=== PATIENT | female | born 1990 | race Caucasian/White ===

== ENCOUNTER → 2017-08-11 09:40 | Outpatient (CLI) | payer BC, SELFPAY ==
--- NOTE | 2017-08-11 09:44 | FL_ITS ---
FL upper GI small bowel HISTORY: ITS.REASON: POST-PRANDIAL NAUSEA ORDERING PHYSICIAN: Fredy Mayen MD PATIENT AGE: 27 years Comparison: None FINDINGS: The esophagus, stomach, and duodenum have an unremarkable appearance. There is no evidence of hiatal hernia. No ulcer or mass evident. No mucosal abnormalities apparent. There is normal peristalsis. The duodenal C-loop is nondisplaced. The small bowel has an unremarkable appearance. No small bowel obstruction mass or mucosal abnormality evident. Spot views of the terminal ileum are unremarkable. FLUOROSCOPY TIME : 3 minutes 32 seconds. IMPRESSION: Negative upper GI and small bowel follow-through
[2017-08-11 11:04] LABS: Urine Pregnancy, HCG Qual. Negative (Negative)
== END ==
PROVIDERS: Family Provider Family Medicine; PCP Family Medicine; Visit Provider Surgery
DX: R11.0 Nausea (principal)
CPT/HCPCS: 74245; 81025

== ENCOUNTER → 2017-08-16 09:46 | Outpatient (CLI) | payer BC, SELFPAY ==
--- NOTE | 2017-08-16 09:47 | NM_ITS ---
NM gastric emptying study CLINICAL INDICATION: ITS.REASON: POST PRANDIAL NAUSEA ORDERING PHYSICIAN: Fredy Mayen MD PATIENT AGE: 27 years Comparison: None DOSE: 0.52 mCi technetium sulfur colloid in radio labeled meal FINDINGS: Time/activity curve is generated demonstrating a one half emptying time of 57 minutes which is within normal limits. Approximate 75% of the contents emptied within the 90 minute period. The images submitted show no evidence of GE reflux. IMPRESSION: Normal gastric emptying time
--- NOTE | 2017-08-16 09:54 | XR_ITS ---
XR KUB HISTORY: Evaluate for barium which would hinder adequate evaluation for gastric emptying scan if present ITS.REASON: check for barium ORDERING PHYSICIAN: Fredy Mayen MD PATIENT AGE: 27 years COMPARISON: FINDINGS: The bowel gas pattern is unremarkable. No obvious obstruction.. No abnormal calcifications are evident. No obvious renal or ureteral calculi.. No acute bony anomalies evident. No residual contrast within the intestines except for a small diverticulum in the splenic flexure region. IMPRESSION: Negative KUB, no significant residual barium within the intestines
== END ==
PROVIDERS: Family Provider Family Medicine; PCP Family Medicine; Visit Provider Surgery
DX: R10.9 Unspecified abdominal pain (principal)
CPT/HCPCS: 74018; 78264; A9541

== ENCOUNTER → 2017-10-31 12:26 | Outpatient (POV) | payer BC, SELFPAY | PROVIDERS: Visit Provider Nurse Practitioner Acute Care | DX: Z00.00 Encounter for general adult medical examination without abnormal findings (principal) ==

== ENCOUNTER → 2017-12-19 13:26 | Outpatient (POV) | payer BC, SELFPAY | PROVIDERS: Visit Provider Nurse Practitioner Acute Care | DX: Z00.00 Encounter for general adult medical examination without abnormal findings (principal) ==

== ENCOUNTER → 2018-02-20 11:12 | Outpatient (POV) | payer BC, SELFPAY | PROVIDERS: Visit Provider Nurse Practitioner Acute Care | DX: Z00.00 Encounter for general adult medical examination without abnormal findings (principal) ==

== ENCOUNTER 2018-05-26 18:55 | Emergency (ER) | payer BC, SELFPAY ==
[2018-05-26 19:10] VITALS: BP 121/71; PULSE 82; RESP 18; TEMP 36.6; O2SAT 99; BMI 49.1
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
[2018-05-26 19:32] VITALS: BP 121/71; PULSE 82; RESP 18; TEMP 36.6; O2SAT 99
== END 2018-05-26 19:46 | disposition home or self-care (01) ==
PROVIDERS: Emergency Provider Physician Assistant
DX: L50.0 Allergic urticaria (principal); H66.003 Acute suppurative otitis media without spontaneous rupture of ear drum, bilateral; Z51.81 Encounter for therapeutic drug level monitoring; K21.9 Gastro-esophageal reflux disease without esophagitis; I10 Essential (primary) hypertension
CPT/HCPCS: 96372; 99201; J1040

== ENCOUNTER → 2018-11-20 10:39 | Outpatient (CLI) | payer BC, SELFPAY ==
[2018-11-20 13:46] LABS: Thyroid Stimulating Hormone 2.66 uIU/ml (0.358-3.740)
== END ==
PROVIDERS: Visit Provider Obstetrics & Gynecology
DX: E66.9 Obesity, unspecified (principal)
CPT/HCPCS: 36415; 84443

== ENCOUNTER → 2018-12-11 10:02 | Outpatient (POV) | payer BC, SELFPAY | PROVIDERS: PCP Family Medicine; Visit Provider Nurse Practitioner Family | DX: Z00.00 Encounter for general adult medical examination without abnormal findings (principal) ==

== ENCOUNTER → 2019-03-19 09:18 | Outpatient (POV) | payer BC, SELFPAY | PROVIDERS: Visit Provider Nurse Practitioner Family | DX: Z00.00 Encounter for general adult medical examination without abnormal findings (principal) ==

== ENCOUNTER → 2019-03-20 12:43 | Outpatient (CLI) | payer BC, SELFPAY ==
[2019-03-20 13:11] LABS: Adenovirus F 40/41, stool Not Detected (NotDetected); Astrovirus Not Detected (NotDetected); Campylobacter Not Detected (NotDetected); Clostridium Difficile A/B, PCR Not Detected (NotDetected); Cryptosporidium Not Detected (NotDetected); Cyclospora Cayetanesis Not Detected (NotDetected); Entamoeba histolytica Not Detected (NotDetected); Enteroaggregative E coli Not Detected (NotDetected); Enteropathogenic E coli Not Detected (NotDetected); Enterotoxigenic E coli Not Detected (NotDetected); Giardia lamblia Not Detected (NotDetected); Norovirus Not Detected (NotDetected); Plesimonas Shigalloides, PCR Not Detected (NotDetected); Rotavirus A Not Detected (NotDetected); Salmonella, PCR Not Detected (NotDetected); Sapovirus Not Detected (NotDetected); Shiga-like toxin E coli Not Detected (NotDetected); Shigella Enterovasive E coli Not Detected (NotDetected); Vibrio Cholerae Not Detected (NotDetected); Vibrio, PCR Not Detected (NotDetected); Yersinia Entercolitica, PCR Not Detected (NotDetected)
== END ==
PROVIDERS: Visit Provider Surgery
DX: K30 Functional dyspepsia (principal); R19.7 Diarrhea, unspecified; R11.0 Nausea; R14.0 Abdominal distension (gaseous)
CPT/HCPCS: 87507

== ENCOUNTER 2019-07-02 21:20 | Emergency (ER) | payer BC, SELFPAY ==
[2019-07-02 21:37] VITALS: BP 152/60; PULSE 100; RESP 16; TEMP 36.9; O2SAT 97; BMI 52.0
--- NOTE | 2019-07-02 21:47 | CT_ITS ---
PROCEDURE: CT ABDOMEN PELVIS WO CON CLINICAL INDICATION: abdominal pain The right-sided abdominal pain COMPARISON: CT ABDOMEN PELVIS WO CON from 01/04/2019 TECHNIQUE: Axial images obtained with sagittal and coronal reformats. All CT scans at the facility use one or more dose reduction, viz: automated exposure control, ma/kV adjustment per patient size (including targeted exams where dose is matched to indication, i.e. head), or iterative reconstruction technique. FINDINGS: LOWER THORAX: No acute finding ABDOMEN & PELVIS: Status post cholecystectomy. The liver, spleen, adrenal glands, pancreas, and kidneys have an unremarkable unenhanced appearance.. No renal or ureteral calculi. No hydronephrosis. No evidence of appendicitis, intestinal obstruction, free air, or diverticulitis. There is a small amount of fluid in the pelvis. There are few scattered small lymph nodes in the mesenteries and right lower quadrant which are nonspecific. Incidental note is made of a tiny umbilical hernia which contains fat. Soft tissue edema is noted in the lumbar region within the subcutaneous tissues posterior to the spine. There is mild amount of edema also an abdominal wall in the subcutaneous tissues IMPRESSION: No acute finding Dictated by: Son Oliveira MD 07/03/2019 09:04 Electronically signed by Son Oliveira MD in [place] 07/03/2019 09:04
[2019-07-02 21:53] LABS: Microscopic, Urine URINE MICROSCOPIC (MICROSCOPIC)
[2019-07-02 21:54] LABS: Appearance,Urine CLEAR (Clear); Bilirubin,Urine Negative (Negative); Blood, Urine Negative (Negative); Color,Urine YELLOW (Yellow); Glucose,Urine (UA) Negative (Negative); Ketones,Urine Negative (Negative); Leukocyte Esterase,Urine Negative (Negative); Nitrate,Urine Negative (Negative); Protein,Urine Negative (Negative); Specific Gravity, Urine 1.025 (1.005-1.030); Urobilinogen,Urine 0.2 EU/dl (0.2)
[2019-07-02 21:59] LABS: Bacteria,Urine 2+ /lpf; Mucus,Urine 1+ /lpf; Urine Pregnancy, HCG Qual. Negative (Negative)
--- NOTE | 2019-07-02 22:00 | HMH.EDNVD ---
ED Disposition Clinical Impression: Flank pain, acute Disposition: Home, Self-Care Condition on Discharge: Good Instructions: DI for Acute Abdomen Additional Instructions: call pcp in am for follow up Referrals: Provider,Referral, [Primary Care Provider] - - Critical Care Critical Care Time: No Attestation: On 07/02/19, the high probability of a clinically significant, sudden or life threatening deterioration of the following system(s) required my full and direct attention, intervention and personal management. The time I documented below is in addition to time spent performing reported procedures but includes the following listed in this critical care notation. Medical Decision Making - Medical Records Medical records reviewed: Yes: I reviewed the patient's medical records. - Joe Inquiry Pt receiving controlled substance: No Vital Signs: 07/02/19 21:37 Temperature 98.4 F Temperature Source Oral Pulse Rate [Right Brachial] 100 H Respiratory Rate 16 Blood Pressure [Right Arm] 152/60 H Blood Pressure Mean [Right Arm] 90 Blood Pressure Source [Right Arm] Manual Cuff/ Doppler Blood Pressure Position [Right Arm] Sitting 02 Sat by Pulse Oximetry 97 Oxygen Delivery Method Room Air - Lab Data Lab results reviewed: Yes: I reviewed the patient's lab results. Lab Results 07/02/19 21:33: Urine Color Yellow, Urine Appearance Clear, Urine pH 6.0, Ur Specific Ogden 1.025, Urine Protein Negative, Urine Glucose (UA) Negative, Urine Ketones Negative, Urine Blood Negative, Urine Nitrate Negative, Urine Bilirubin Negative, Urine Urobilinogen 0.2, Ur Leukocyte Esterase Negative, Urine WBC 3-5, Ur Squamous Epith Cells 5-10, Urine Bacteria 2+, Urine Mucus 1+ 07/02/19 21:33: Urine HCG, Qual Negative 07/02/19 22:00: Amylase 77, Lipase 61 07/02/19 22:00: WBC 13.6 H, RBC 4.37, Hgb 12.0 L, Hct 36.0 L, MCV 82.4, MCH 27.5, MCHC 33.4, RDW 13.8, Plt Count 318, MPV 7.7, Neut % (Auto) 65.8, Lymph % (Auto) 30.2, Lawrence % (Auto) 2.5, Eos % (Auto) 1.1, Baso % (Auto) 0.4, Neut # (Auto) 8.9 H, Lymph # (Auto) 4.1, Lawrence # (Auto) 0.3, Eos # (Auto) 0.2, Baso # (Auto) 0.1 07/02/19 22:00: Sodium 139, Potassium 3.8, Chloride 105, Carbon Dioxide 25, Anion Gap 12.8, BUN 8, Creatinine 0.80, Estimated Creat Clear 79, Estimated GFR 85, Est GFR ( Amer) 103, Glucose 97, Calcium 9.4, Total Bilirubin 0.3, AST 20, ALT 15, Alkaline Phosphatase 118, Total Protein 7.5, Albumin 4.0, Globulin 3.5 H, Albumin/Globulin Ratio 1.1 Result diagrams: 07/02/19 22:00 07/02/19 22:00 Orders (Tests/Meds): ORDERS Category Date Time Status CT abdomen pelvis wo con Stat Cat Scan 07/02/19 21:47 Taken Urine Culture Stat Micro 07/02/19 21:33 Received - CT Data CT Scan: Abdomen, Pelvis Time Received: 23:[address] Reviewed: Yes: I have viewed the radiologist's interpretation Preliminary Findings: Normal/NAD - Reevaluation(s) Time: 23:06 Reevaluation #1: no sig change on exam Nausea/Vomiting/Diarrhea HPI - General Chief complaint: Abdominal Pain Stated complaint: Pain R side Time Seen by Provider: 07/02/19 22:00 Mode of Arrival: Ambulatory Source of Information: Patient, Significant Other, Medical Record Limitations: No Limitations Description of Symptoms (Recalled from ER Triage Doc. by RN): Patient reports right sided pain that started about an hour ago. Patient reports the pain goes from her rib cage down to her hip bone. Patient denies any vomiting or diarrhea. - History of Present Illness HPI Narrative: rt flank pain which started tonight w/o fever/rash or trauma - no vomiting or diarrhea - worse with mov MD complaint: nausea, abdominal pain Onset (ago): hour(s) Associated Abdominal Pain: Yes Location of pain: flank Severity: moderate Quality: sharp Consistency: intermittent Exacerbating factors: movement Associated symptoms: denies other symptoms - Related Data Home Medications Medication Instructions Recorded Confirm
[2019-07-02 22:08] LABS: Basophils # 0.1 K/mm3 (0-0.2); Basophils % 0.4 % (0.1-2.0); Eosinophils # 0.2 K/mm3 (0.0-0.4); Eosinophils % 1.1 % (0.1-12.0); Lymphocytes # 4.1 K/mm3 (0.7-4.5); Lymphocytes % 30.2 % (10-50); Mean Corpuscular HGB Conc 33.4 g/dL (31.8-35.4); Mean Corpuscular Hemoglobin 27.5 pg (27.0-31.2); Mean Corpuscular Volume 82.4 fl (81-99); Mean Platelet Volume 7.7 fl (7.4-10.4); Monocytes # 0.3 K/mm3 (0.1-1.0); Monocytes % 2.5 % (1.7-9.3); Neutrophils # 8.9 K/mm3 (1.8-7.8); Neutrophils % 65.8 % (37.0-80.0); Platelet Count 318 K/mm3 (142-424); Red Blood Count 4.37 M/mm3 (4.20-5.40); Red Cell Distribution Width 13.8 % (11.5-17.5); White Blood Count 13.6 K/mm3 (4.8-10.8)
[2019-07-02 22:12] LABS: Chloride 105 mmol/L (98-107); Potassium 3.8 mmoL/L (3.5-5.1); Sodium 139 mmol/L (136-145)
[2019-07-02 22:15] LABS: Alanine Aminotransferase 15 U/L (12-78); Albumin/Globulin Ratio 1.1 (1.1-1.8); Alkaline Phosphatase 118 U/L (38-126); Anion Gap 12.8 mEq/L (5-15); Aspartate Amino Transferase 20 U/L (14-36); Bilirubin,Total 0.3 mg/dl (0.2-1.3); Blood Urea Nitrogen 8 mg/dl (7-17); Calcium 9.4 mg/dl (8.4-10.2); Carbon Dioxide 25 mmol/L (22.0-30.0); Creatinine Clearance Estimated 79 mL/min (50-200); Estimated Glomerular Filt Rate 85 ml/min (>60); GFR (African American) 103 ML/MIN (>60); Globulin 3.5 g/dL (1.3-3.2); Glucose 97 mg/dl (74-100); Total Protein,Serum 7.5 g/dl (6.3-8.2)
[2019-07-02 22:16] LABS: Amylase 77 U/L (30-110); Lipase 61 U/L (23-300)
[2019-07-02 22:21] VITALS: BP 128/64; PULSE 83; RESP 17; O2SAT 98
[2019-07-02 23:07] VITALS: BP 117/63; PULSE 81; RESP 18; TEMP 36.9; O2SAT 98
== END 2019-07-02 23:13 | disposition home or self-care (01) ==
PROVIDERS: Emergency Provider Emergency Medicine
DX: R10.11 Right upper quadrant pain (principal); K21.9 Gastro-esophageal reflux disease without esophagitis; I10 Essential (primary) hypertension
CPT/HCPCS: 74176; 80053; 81001; 81025; 82150; 83690; 85025; 87086; 96374; 96375; 99283; J2405

== ENCOUNTER 2019-07-25 13:08 | Emergency (ER) | payer BC, SELFPAY ==
[2019-07-25 13:10] VITALS: BP 135/75; PULSE 65; RESP 19; TEMP 36.8; O2SAT 100; BMI 52.0
--- NOTE | 2019-07-25 13:35 | XR_ITS ---
PROCEDURE: XR ANKLE RT MIN 3V CLINICAL INDICATION: pain COMPARISON: No exams were available for comparison FINDINGS: No fracture or dislocation. No lytic or blastic change. There is normal mineralization. The joint spaces are well-preserved. No significant degenerative/arthritic changes. No erosive changes evident. Other findings:None. IMPRESSION: No acute findings. Dictated by: Son Oliveira MD 07/25/2019 14:19 Electronically signed by Son Oliveira MD in [place] 07/25/2019 14:19
--- NOTE | 2019-07-25 13:43 | HMH.EDUTC ---
[facility] [place] Impression: Ankle sprain Qualifiers: Encounter type: initial encounter Involved ligament of ankle: unspecified ligament Laterality: right Qualified Code(s): S93.401A - Sprain of unspecified ligament of right ankle, initial encounter Disposition: Home, Self-Care Condition on Discharge: Good Instructions: How To Perform RICE (Rest, Ice, Compress, Elevate), How to Use Crutches, How to Apply an Bhargav Wrap Additional Instructions: *weight bearing as tolerated *RICE, Rest the extremity, Ice 15-20 minutes 3-4 times daily, Compress- wear the bhargav wrap as discussed as much as possible to help reduce swelling and pain, Elevate the extremity when at rest *Bhargav wrap/air splint is for support and help control swelling, use it except in the shower. Be sure that is not to tight but not to loose either and crutches for ambulation and walking *Elevate when resting *Ibuprofen every 6-8 hours as needed for pain an inflammation. If need something more can take Tylenol in between doses of Ibuprofen to help Immediately follow up with your family doctor for new or worsening of symptoms, or no noticeable improvement over the next 3-5 days You may call back to [facility] [place] for your xray reading and results Follow up with Dr Patel if no improvement or any worsening of symptoms Straight to ER if any life threatening symptoms Referrals: Provider,Referral, [Primary Care Provider] - As needed Marta Patel DPM [Staff Physician] - Time of Disposition: 13:57 Medical Decision Making - Joe Inquiry Pt receiving controlled substance: No Joe was queried for this patient: No Vital Signs: 07/25/19 13:10 Temperature 98.2 F Temperature Source Oral Pulse Rate [Right] 65 Respiratory Rate 19 Blood Pressure [Right Arm] 135/75 Blood Pressure Mean [Right Arm] 95 02 Sat by Pulse Oximetry 100 Orders (Tests/Meds): ORDERS Category Date Time Status Ankle XR -Right minimum 3 Views [XR ankle RT min 3V] Exams 07/25/19 13:35 Ordered Stat - Radiology Data #1 Image(s): Ankle Image Reviewed: Yes I reviewed the patient's radiology image Preliminary Findings: No Fracture Seen No fracture seen will place in airsplint, crutches and have patient follow up with Dr Patel [facility] [place] - General Stated complaint: right ankle Time Seen by Provider: 07/25/19 13:44 Mode of Arrival: Ambulatory Limitations: No Limitations Description of Symptoms (Recalled from Triage Doc. by RN): Swelling and pain in the right ankle x4 days HEENT Symptoms (Recalled from RN notes): No Resp Symptoms (Recalled from RN notes): No Skin Symptoms (Recalled from RN notes): No MS Symptoms (Recalled from RN notes): Yes Functional Status (Recalled from RN notes): na - History of Present Illness Provider Complaint: Patient states that she has been having pain and swelling in her right ankle since Tuesday after she was sitting in the floor and stood up and had a sharp pain in her ankle States that ever since she has been having pain and swelling when she walks and bears weight on the ankle - Related Data Home Medications Medication Instructions Recorded Confirmed Omeprazole [Omeprazole 40mg 40 mg PO DAILY 03/09/18 07/03/19 Capsule] Bifidobacterium Infantis [Align] 4 mg PO DAILY 05/14/18 07/03/19 Buspirone HCl [Buspar 10mg 10 mg PO TID 05/14/18 07/03/19 tablet] amitriptyline 25 mg tablet 25 mg PO DAILY 01/01/19 07/03/19 baclofen 10 mg tablet 10 mg PO TID 01/01/19 07/03/19 Previous Rx's Medication Instructions Recorded norgestimate 0.25 mg-ethinyl 1 tab PO ONCE 30 Days #30 tab 11/20/18 estradiol 35 mcg tablet amoxicillin 500 mg capsule 500 mg PO Q12H 10 Days #20 cap 01/01/19 Ondansetron [Zofran 4mg ODT] 4 mg PO Q4-6H #12 tab.rapdis 01/04/19 Psyllium Husk/Aspartame [Metamucil 3.4 gm PO DAILY #30 powd.pack 01/04/19 Fiber Singles Packet] metroNIDAZOLE [Flagyl 500mg 500 mg PO Q8H #30 tab 01/04/19 Tablet] Allergies
[2019-07-25 14:04] VITALS: BP 132/85; PULSE 80; RESP 20; TEMP 36.8; O2SAT 98
== END 2019-07-25 14:09 | disposition home or self-care (01) ==
PROVIDERS: Emergency Provider Nurse Practitioner
DX: S93.401A Sprain of unspecified ligament of right ankle, initial encounter (principal); X50.1XXA Overexertion from prolonged static or awkward postures, initial encounter; Y92.019 Unspecified place in single-family (private) house as the place of occurrence of the external cause; I10 Essential (primary) hypertension; K21.9 Gastro-esophageal reflux disease without esophagitis; G43.709 Chronic migraine without aura, not intractable, without status migrainosus; Z91.040 Latex allergy status; Z88.8 Allergy status to other drugs, medicaments and biological substances
CPT/HCPCS: 29515; 73610; 99203

== ENCOUNTER 2020-09-09 13:06 | Emergency (ER) | payer BC, SELFPAY ==
[2020-09-09 13:28] VITALS: BP 133/81; PULSE 75; RESP 18; TEMP 37; O2SAT 97; BMI 39.2
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
[2020-09-09 14:12] VITALS: BP 133/81; PULSE 75; RESP 18; TEMP 37; O2SAT 97
== END 2020-09-09 14:15 | disposition home or self-care (01) ==
PROVIDERS: Emergency Provider Nurse Practitioner
DX: T24.132A Burn of first degree of left lower leg, initial encounter (principal); W22.8XXA Striking against or struck by other objects, initial encounter; Y92.019 Unspecified place in single-family (private) house as the place of occurrence of the external cause; I10 Essential (primary) hypertension; K21.9 Gastro-esophageal reflux disease without esophagitis
CPT/HCPCS: 99202; G0463

== ENCOUNTER → 2020-09-25 11:01 | Outpatient (CLI) | payer BC, SELFPAY ==
[2020-09-25 13:33] LABS: HCG,Quantitative < 2 mIU/ml (0-5.42)
== END ==
LOC: LAB 11:01
PROVIDERS: Visit Provider Obstetrics & Gynecology
DX: Z34.90 Encounter for supervision of normal pregnancy, unspecified, unspecified trimester (principal)
CPT/HCPCS: 36415; 84702

== ENCOUNTER 2020-10-16 09:44 | Emergency (ER) | payer OTHER, BC, SELFPAY ==
[2020-10-16 10:40] VITALS: BP 142/76; PULSE 65; RESP 18; TEMP 36.7; O2SAT 98; BMI 52.0
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
[2020-10-16 11:43] VITALS: BP 142/76; PULSE 65; RESP 18; TEMP 36.7; O2SAT 98
== END 2020-10-16 11:49 | disposition home or self-care (01) ==
PROVIDERS: Emergency Provider Nurse Practitioner
DX: S46.912A Strain of unspecified muscle, fascia and tendon at shoulder and upper arm level, left arm, initial encounter (principal); M62.838 Other muscle spasm; V49.3XXA Car occupant (driver) (passenger) injured in unspecified nontraffic accident, initial encounter; Y92.488 Other paved roadways as the place of occurrence of the external cause
CPT/HCPCS: 73030; 99202; G0463

== ENCOUNTER → 2020-10-31 13:08 | Outpatient (CLI) | payer BC, SELFPAY | PROVIDERS: Visit Provider Nurse Practitioner | DX: Z20.822 Contact with and (suspected) exposure to COVID-19 (principal); U07.1 COVID-19 | CPT/HCPCS: C9803; U0003; U0005 ==

== ENCOUNTER 2020-11-08 12:07 | Emergency (ER) | payer BC, SELFPAY ==
[2020-11-08 13:05] VITALS: BP 132/86; PULSE 79; RESP 21; TEMP 36.8; O2SAT 97; BMI 52.0
--- NOTE | 2020-11-08 13:36 | HMH.EDUTC ---
[facility] [place] Clinical Impression: COVID-19 virus test result unknown Disposition: Home, Self-Care Condition on Discharge: Good Instructions: Preventing the Spread of Coronavirus Discharge Instructions Additional Instructions: No sign of a bacterial infection. Likely viral. Viruses can take 7-14 days to run their course. Nasal saline and bulb syringe or nose Mag to remove nasal drainage to help with nasal congestion. Hard to eat, drink, sleep with nasal congestion so important to keep this cleaned out. Monitor temp. Tylenol or Motrin as needed for pain or fever Encourage fluids, water, Gatorade, Powerade, Pedialyte if infant/toddler/child Warm salt water gargles Warm fluids Sore throat lozenges Sleep elevated Humidifier/vaporizer Follow-up immediately for new or worsening symptoms or no noticeable improvement over the next 48-72 hours. Referrals: Chrsitopher Guzmna II [Primary Care Provider] - Time of Disposition: 13:56 Medical Decision Making - Joe Inquiry Pt receiving controlled substance: No Vital Signs: 11/08/20 13:05 Temperature 98.2 F Temperature Source Oral Pulse Rate [Right Brachial] 79 Respiratory Rate 21 Blood Pressure [Right Arm] 132/86 Blood Pressure Mean [Right Arm] 101 Blood Pressure Source [Right Arm] Automatic Cuff Blood Pressure Position [Right Arm] Sitting 02 Sat by Pulse Oximetry 97 Oxygen Delivery Method Room Air - Lab Data Lab Results 11/08/20 13:08: Strep Scn [facility] Negative 11/08/20 13:08: Urine Color Yellow, Urine Appearance Clear, Urine pH 6.5, Ur Specific Warren 1.020, Urine Protein Negative, Urine Glucose (UA) Negative, Urine Ketones Negative, Urine Blood Negative, Urine Nitrate Negative, Urine Bilirubin Negative, Urine Urobilinogen 0.2, Ur Leukocyte Esterase Negative Orders (Tests/Meds): ORDERS Category Date Time Status Strep Screen Confirmation Stat Micro 11/08/20 13:08 Received [facility] [place] - General Chief complaint: [facility] Stated complaint: Covid+ Sore throat,ear,MG congestion Time Seen by Provider: 11/08/20 13:36 Mode of Arrival: Ambulatory Source of Information: Patient Limitations: No Limitations Description of Symptoms (Recalled from Triage Doc. by RN): PATIENT TESTED POSITIVE FOR COVID ON 10/31/20. C/O SORE THROAT, EARACHE, DIZZINESS, NECK STIFFNESS, PAIN IN RIGHT SIDE, AND BURNING WITH URINATION. SON RECENTLY TREATED FOR STREP HEENT Symptoms (Recalled from RN notes): Yes Resp Symptoms (Recalled from RN notes): No Skin Symptoms (Recalled from RN notes): No MS Symptoms (Recalled from RN notes): No Functional Status (Recalled from RN notes): WNL - History of Present Illness Provider Complaint: 30 yr old female presents for sore throat, soreness with moving neck, swollen glands, fever 99.3, freq urination and pain in rt side. - Related Data Home Medications Medication Instructions Recorded Confirmed Bifidobacterium Infantis [Align] 4 mg PO DAILY 05/14/18 02/25/20 Buspirone HCl [Buspar 10mg 10 mg PO TID 05/14/18 02/25/20 tablet] amitriptyline 25 mg tablet 25 mg PO DAILY 01/01/19 02/25/20 omeprazole 20 mg capsule,delayed 20 mg PO cap 11/29/19 02/25/20 release Previous Rx's Medication Instructions Recorded norgestimate 0.25 mg-ethinyl 1 tab PO ONCE 30 Days #30 tab 10/24/19 estradiol 35 mcg tablet norethindrone acetate 1 mg-ethinyl 1 tab PO DAILY #21 tab 11/23/19 estradiol 20 mcg tablet methocarbamoL [Methocarbamol 500mg 500 mg PO BID PRN #10 tab 10/16/20 Tablet] Allergies Allergy/AdvReac Type Severity Reaction Status Date / Time iodine [IODINE] Allergy Severe S-SWELLS-OR Verified 02/25/20 13:42 AL/THROAT latex [LATEX] Allergy Intermediate I-RASH Verified 02/25/20 13:42 Fish Containing Products Allergy Mild Verified 02/25/20 13:42 [FISH CONTAINING PRODUCTS] lavender (Lavandula Allergy Verified 02/25/20 13:42 angustifolia) diatrizoate meglumine AdvReac Hans Barker
[2020-11-08 13:38] LABS: Apearance,Urine Clear (Clear); Bilirubin,Urine Negative (Negative); Blood, Urine Negative (Negative); Color,Urine Yellow (Yellow); Glucose,Urine (UA) Negative (Negative); Ketones,Urine Negative (Negative); Protein,Urine Negative (Negative); UTC Leukocyte Esterase,Urine Negative (Negative); UTC Nitrate,Urine Negative (Negative); Urobilinogen,Urine 0.2 EU/dl (0.2)
[2020-11-08 13:39] LABS: UTC Strep Screen (Rapid) Negative (Negative)
[2020-11-08 13:42] LABS: PH,Urine 6.5 (5.0-8.5)
[2020-11-08 14:00] VITALS: BP 132/86; PULSE 79; RESP 21; TEMP 36.8; O2SAT 97
== END 2020-11-08 14:03 | disposition home or self-care (01) ==
PROVIDERS: Emergency Provider Nurse Practitioner Family; PCP Family Medicine
DX: U07.1 COVID-19 (principal); I10 Essential (primary) hypertension
CPT/HCPCS: 81003; 87880; 99203; G0463

== ENCOUNTER → 2020-11-13 16:23 | Outpatient (CLI) | payer BC, SELFPAY ==
--- NOTE | 2020-11-13 16:28 | XR_ITS ---
PROCEDURE INFORMATION: Exam: XR Chest Exam date and time: 11/13/2020 4:28 PM Age: 30 years old Clinical indication: Shortness of breath; Additional info: SOB, PT states lost of taste and smell TECHNIQUE: Imaging protocol: XR of the chest. Views: 1 view. COMPARISON: CR XR CHEST 2V 01/04/2019 7:48 PM FINDINGS: Airway: Patent Lungs: Ground-glass and patchy airspace opacities appreciated in the bilateral lung bases, worse in the left lung base. Remainder of the lungs are clear. Pleural spaces: Unremarkable. No pleural effusion. No pneumothorax. Heart/Mediastinum: Unremarkable. No cardiomegaly. Bones/joints: No acute skeletal abnormality or aggressive osseous lesion. IMPRESSION: Moderate bilateral basal acute airspace disease, worse on the left. Considering the patient's clinical history, findings are concerning for atypical viral pneumonia.
[2020-11-13 17:11] LABS: Basophils % 0.7 % (0.1-2.0); Eosinophils % 0.6 % (0.1-12.0); Hematocrit 37.2 % (37.0-47.0); Hemoglobin 11.6 g/dL (12.2-16.2); Lymphocytes # 1.7 K/mm3 (0.7-4.5); Lymphocytes % 39.7 % (10-50); Mean Corpuscular HGB Conc 31.3 g/dL (31.8-35.4); Mean Corpuscular Hemoglobin 26.2 pg (27.0-31.2); Mean Corpuscular Volume 83.9 fl (81-99); Mean Platelet Volume 9.2 fl (7.4-10.4); Monocytes # 0.1 K/mm3 (0.1-1.0); Monocytes % 3.3 % (1.7-9.3); Neutrophils # 2.4 K/mm3 (1.8-7.8); Neutrophils % 55.7 % (37.0-80.0); Platelet Count 245 K/mm3 (142-424); Red Blood Count 4.44 M/mm3 (4.20-5.40); Red Cell Distribution Width 14.4 % (11.5-17.5); White Blood Count 4.2 K/mm3 (4.8-10.8)
[2020-11-13 17:25] LABS: Alanine Aminotransferase 48 U/L (12-78); Albumin Level 3.8 g/dl (3.5-5.0); Albumin/Globulin Ratio 1.2 (1.1-1.8); Alkaline Phosphatase 115 U/L (38-126); Aspartate Amino Transferase 39 U/L (14-36); Blood Urea Nitrogen 6 mg/dl (7-17); Calcium 8.5 mg/dl (8.4-10.2); Carbon Dioxide 28 mmol/L (22.0-30.0); Chloride 107 mmol/L (98-107); Estimated Glomerular Filt Rate 146 ml/min (>60); GFR (African American) 177 ML/MIN (>60); Globulin 3.3 g/dL (1.3-3.2); Glucose 91 mg/dl (74-100); Sodium 139 mmol/L (136-145); Total Protein,Serum 7.1 g/dl (6.3-8.2)
[2020-11-13 17:26] LABS: Bilirubin,Total 0.1 mg/dl (0.2-1.3)
[2020-11-13 17:55] LABS: Thyroid Stimulating Hormone 1.45 uIU/mL (0.465-4.68)
== END ==
LOC: RAD 16:27
PROVIDERS: PCP Family Medicine; Visit Provider Family Medicine
DX: R06.02 Shortness of breath (principal)
CPT/HCPCS: 36415; 71045; 80053; 84443; 85025

== ENCOUNTER 2020-11-14 19:45 | Emergency (ER) | payer BC, SELFPAY ==
--- NOTE | 2020-11-14 19:30 | ECG_ITS ---
APPROVED REPORT Exam: Resting ECG HR:88 bpm ECG Measurements Heart Rate 88 AXES AZ 126 P 46 QRSd 76 QRS 36 QT 338 T 27 QTc 408 Conclusion Normal sinus rhythm Normal ECG Electronically signed by : Broderick Marino MD 11/15/2020 09:45:54
[2020-11-14 19:46] VITALS: BP 143/61; PULSE 87; RESP 16; TEMP 37.1; O2SAT 97; BMI 52.0
[2020-11-14 19:58] VITALS: BMI 52.0
--- NOTE | 2020-11-14 20:01 | XR_ITS ---
PROCEDURE INFORMATION: Exam: XR Chest Exam date and time: 11/14/2020 8:01 PM Age: 30 years old Clinical indication: Pain; Chest pressure; Additional info: Chest pain/weakness TECHNIQUE: Imaging protocol: XR of the chest. Views: 2 views. COMPARISON: CR XR CHEST PORTABLE 11/13/2020 4:41 PM FINDINGS: Lungs: There is increasing infiltration identified within both lung santacruz. There currently areas of interstitial infiltration now noted within the upper lobes which were not clearly seen on the prior examination. Persistent interstitial infiltrates noted at both lung bases. No evidence of pulmonary vascular congestion. Pleural spaces: Unremarkable. No pleural effusion. No pneumothorax. Heart/Mediastinum: Unremarkable. No cardiomegaly. Bones/joints: Unremarkable. IMPRESSION: Increasing interstitial infiltrates within both lung santacruz, certainly compatible with worsening atypical viral pneumonitis.
[2020-11-14 20:09] LABS: Basophils % 0.6 % (0.1-2.0); Eosinophils % 0.4 % (0.1-12.0); Hematocrit 38.3 % (37.0-47.0); Hemoglobin 12.1 g/dL (12.2-16.2); Lymphocytes # 1.6 K/mm3 (0.7-4.5); Lymphocytes % 33.7 % (10-50); Mean Corpuscular HGB Conc 31.6 g/dL (31.8-35.4); Mean Corpuscular Hemoglobin 26.1 pg (27.0-31.2); Mean Corpuscular Volume 82.5 fl (81-99); Mean Platelet Volume 8.5 fl (7.4-10.4); Monocytes # 0.2 K/mm3 (0.1-1.0); Monocytes % 3.6 % (1.7-9.3); Neutrophils # 2.9 K/mm3 (1.8-7.8); Neutrophils % 61.7 % (37.0-80.0); Platelet Count 229 K/mm3 (142-424); Red Blood Count 4.64 M/mm3 (4.20-5.40); Red Cell Distribution Width 13.8 % (11.5-17.5); White Blood Count 4.7 K/mm3 (4.8-10.8)
[2020-11-14 20:15] LABS: Chloride 105 mmol/L (98-107); Potassium 4.2 mmoL/L (3.5-5.1); Sodium 141 mmol/L (136-145)
[2020-11-14 20:18] LABS: Anion Gap 13.2 mEq/L (5-15); Blood Urea Nitrogen 5 mg/dl (7-17); Carbon Dioxide 27 mmol/L (22.0-30.0); Creatinine Clearance Estimated 104 mL/min (50-200); Estimated Glomerular Filt Rate 118 ml/min (>60); GFR (African American) 143 ML/MIN (>60)
[2020-11-14 20:19] LABS: Calcium 8.8 mg/dl (8.4-10.2); Glucose 98 mg/dl (74-100)
[2020-11-14 20:32] LABS: Troponin I < 0.01 ng/ml (0.00-0.034)
[2020-11-14 20:37] LABS: Influenza A, PCR Not Detected (NotDetected); Influenza B, PCR Not Detected (NotDetected)
[2020-11-14 20:43] VITALS: BP 148/74; PULSE 87; RESP 16; O2SAT 98
--- NOTE | 2020-11-14 20:49 | HMH.EDSOB ---
ED Disposition Clinical Impression: Acute COVID-19, Pneumonia due to 2019 novel coronavirus Disposition: Home, Self-Care Condition on Discharge: Good Instructions: DI for COVID-19 (Suspected or Confirmed ) Additional Instructions: use meds and f/u with your pcp Prescriptions: dexAMETHasone [Decadron] 6 mg PO DAILY #6 tab Transmission Status: Pending to [id number] Referrals: Christopher Guzman II [Primary Care Provider] - - Critical Care Critical Care Time: No Attestation: On 11/14/20, the high probability of a clinically significant, sudden or life threatening deterioration of the following system(s) required my full and direct attention, intervention and personal management. The time I documented below is in addition to time spent performing reported procedures but includes the following listed in this critical care notation. Medical Decision Making - Medical Records Medical records reviewed: Yes: I reviewed the patient's medical records. - Joe Inquiry Pt receiving controlled substance: No Vital Signs: 11/14/20 19:46 Temperature 98.8 F Temperature Source Oral Pulse Rate [Right Brachial] 87 Respiratory Rate 16 Blood Pressure [Right Arm] 143/61 H Blood Pressure Mean [Right Arm] 88 Blood Pressure Source [Right Arm] Automatic Cuff Blood Pressure Position [Right Arm] Sitting 02 Sat by Pulse Oximetry 97 Oxygen Delivery Method Room Air - Lab Data Lab results reviewed: Yes: I reviewed the patient's lab results. Lab Results 11/14/20 19:53: WBC 4.7 L, RBC 4.64, Hgb 12.1 L, Hct 38.3, MCV 82.5, MCH 26.1 L, MCHC 31.6 L, RDW 13.8, Plt Count 229, MPV 8.5, Neut % (Auto) 61.7, Lymph % (Auto) 33.7, [place] % (Auto) 3.6, Eos % (Auto) 0.4, Baso % (Auto) 0.6, Neut # (Auto) 2.9, Lymph # (Auto) 1.6, [place] # (Auto) 0.2, Eos # (Auto) 0.0, Baso # (Auto) 0.0 11/14/20 19:53: Sodium 141, Potassium 4.2, Chloride 105, Carbon Dioxide 27, Anion Gap 13.2, BUN 5 L, Creatinine 0.60, Estimated Creat Clear 104, Estimated GFR 118, Est GFR ( Amer) 143, Glucose 98, Calcium 8.8, Troponin I < 0.01 11/14/20 20:00: SARS-CoV-2 (PCR) Detected A, Influenza A Untype (PCR) Not detected, Influenza Type B (PCR) Not detected Result diagrams: 11/14/20 19:53 11/14/20 19:53 Orders (Tests/Meds): ED MEDICATIONS Discontinued Medications Generic Name Dose Route Start Last Admin Trade Name Pj PRN Reason Stop Dose Admin Iopamidol 70 ml 11/14/20 21:33 11/14/20 21:34 Iopamidol-370 (76%);100ml Bottle IV 11/14/20 21:34 70 ml ONCE ONE Administration Ondansetron HCl 4 mg 11/14/20 21:46 11/14/20 21:49 Ondansetron 4mg/2ml Vial IV 11/14/20 21:47 4 mg ONCE ONE Administration Sodium Chloride 40 ml 11/14/20 21:33 11/14/20 21:34 0.9 % Sodium Chloride 50 Ml Vial IV 11/14/20 21:34 40 ml ONCE ONE Administration Sodium Chloride 10 ml 11/14/20 21:33 11/14/20 21:34 Sodium Chloride 0.9% 10ml Syr (Rad Only) IV 11/14/20 21:34 10 ml ONCE ONE Administration ORDERS Category Date Time Status Troponin I Q3H Lab 11/14/20 23:15 Ordered Troponin I Q3H Lab 11/15/20 02:15 Ordered - Radiology Data #1 Image(s): Chest Image Reviewed: Yes I have reviewed radiologist's interpretation Preliminary Findings: Abnormal - CT Data CT Scan: Chest Time Received: 22:[address] Reviewed: Yes: I have viewed the radiologist's interpretation Preliminary Findings: Abnormal - ECG Data Tracing #1 Normal Sinus Rhythm: Yes Ischemic changes: non-specific ST-T wave changes Medical Decision Narrative: prov resolving covid-19 infections Resp/SOB HPI - General Chief Complaint: Weakness Stated Complaint: chest pain Time Seen by Provider: 11/14/20 20:15 Mode of Arrival: Ambulatory Source of Information: Patient, Medical Record Limitations: No Limitations Description of Symptoms (Recalled from ER Triage Doc. by RN): pt advises she was diagnosed with pneumonia yesterday and had covid on
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
[2020-11-14 20:59] LABS: Coronavirus 19, PCR Detected (NotDetected)
[2020-11-14 22:21] VITALS: BP 156/78; PULSE 90; RESP 16; TEMP 36.7; O2SAT 98
== END 2020-11-14 22:22 | disposition home or self-care (01) ==
PROVIDERS: Emergency Provider Emergency Medicine; PCP Family Medicine
DX: R07.9 Chest pain, unspecified (principal); U07.1 COVID-19; J12.82 Pneumonia due to coronavirus disease 2019
CPT/HCPCS: 71046; 71275; 80048; 84484; 85025; 93005; 96374; 96375; 99283; C9803; J2405; Q9967; U0003; U0005

== ENCOUNTER → 2020-12-02 14:09 | Outpatient (CLI) | payer BC, SELFPAY ==
[2020-12-02 16:29] LABS: HCG,Quantitative < 2 mIU/ml (0-5.42)
== END ==
PROVIDERS: Visit Provider Obstetrics & Gynecology
DX: Z32.01 Encounter for pregnancy test, result positive (principal)
CPT/HCPCS: 36415; 84702

== ENCOUNTER → 2021-01-02 10:23 | Outpatient (CLI) | payer BC, SELFPAY ==
--- NOTE | 2021-01-02 10:24 | US_ITS ---
PROCEDURE: US TRANSVAGINAL CLINICAL INDICATION: DUB COMPARISON: US PTV US PELVIS-TRANSVAGINAL ONLY from 12/04/2015 FINDINGS: Small nabothian cyst 3 mm. The uterus is retroverted and somewhat difficult to image. Images obtained transabdominal andtransabdominal UTERUS: 10cm x 5cmx 4cm with a combined endometrial thickness of 3.5mm. LEFT OVARY: [id number] with a volume of 14ml. RIGHT OVARY: [id number] with a volume of 9ml. No cul-de-sac fluid IMPRESSION: Retroverted uterus otherwise unremarkable pelvic ultrasound Dictated by: Son Oliveira MD 01/02/2021 12:44 Son Oliveira MD in [place] 01/02/2021 12:44
== END ==
PROVIDERS: PCP Family Medicine; Visit Provider Obstetrics & Gynecology
DX: N93.8 Other specified abnormal uterine and vaginal bleeding (principal)
CPT/HCPCS: 76830

== ENCOUNTER 2021-02-02 10:18 | Emergency (ER) | payer BC, SELFPAY ==
[2021-02-02 11:20] VITALS: BP 153/86; PULSE 96; RESP 20; TEMP 37.2; O2SAT 100; BMI 53.1
--- NOTE | 2021-02-02 11:39 | HMH.EDUTC ---
[facility] – [place] Disposition Clinical Impression: Sinusitis Qualifiers: Sinusitis location: unspecified location Chronicity: unspecified Qualified Code(s): J32.9 - Chronic sinusitis, unspecified Disposition: Home, Self-Care Condition on Discharge: Good Instructions: Sinusitis, DI for Sinusitis Additional Instructions: *Monitor Temp, Over the counter Motrin or Tylenol as directed/as needed Tylenol every 4 hours and Motrin every 6 hours (as long as your family doctor has told you that you can take it) for fever or pain. and straight to ER if unable to lower temp less than 101.0 after medication given *Warm salt water gargles may help to soothe the throat *Throat Lozenges *Warm fluids like tea with honey may help to soothe the throat *Sleep elevated *Humidifier/Vaporizer Take medication as prescribed Follow up IMMEDIATELY for new or worsening symptoms or no Noticeable improvement over the next 48-72 hours. 911 for difficulty breathing or swallowing Prescriptions: predniSONE [Prednisone 20mg Tab] 20 mg PO BID 3 Days #6 tab Transmission Status: Pending to [facility] Azithromycin [Z-Faheem 250mg Tab] 250 mg PO DIRECTED #6 tab Transmission Status: Pending to [facility] Referrals: Christopher Guzman II, MD [Primary Care Provider] - Time of Disposition: 11:57 Medical Decision Making - Joe Inquiry Pt receiving controlled substance: No Joe was queried for this patient: No Vital Signs: 02/02/21 11:20 Temperature 98.9 F Temperature Source Oral Pulse Rate [Right Brachial] 96 H Respiratory Rate 20 Blood Pressure [Right Arm] 153/86 H Blood Pressure Mean [Right Arm] 108 Blood Pressure Source [Right Arm] Automatic Cuff Blood Pressure Position [Right Arm] Sitting 02 Sat by Pulse Oximetry 100 Oxygen Delivery Method Room Air - Lab Data Lab results reviewed: Yes: I reviewed the patient's lab results. Medical Decision Narrative: Patient state that she has taken Prednisone and Azithromycin in the past without reactions or complication [facility] [place] HPI - General Stated complaint: fever/chills, sore throat, couygh, MG, congestion Time Seen by Provider: 02/02/21 11:39 Mode of Arrival: Ambulatory Source of Information: Patient Limitations: No Limitations Description of Symptoms (Recalled from Triage Doc. by RN): PATIENT C/O FEVER, HEADACHE, RUNNY NOSE, CONGESTION, SORE THROAT AND NAUSEA X 2 DAYS HEENT Symptoms (Recalled from RN notes): Yes Resp Symptoms (Recalled from RN notes): No Skin Symptoms (Recalled from RN notes): No MS Symptoms (Recalled from RN notes): No Functional Status (Recalled from RN notes): WNL - History of Present Illness Provider Complaint: Patient states that she was seen last week and given injection for ear infection States that it doesnt feel like it cleared up States that she has been having headache, pressure behind her eyes and in her sinuses and feels like her whole face hurts States that she is scheduled for ablasion on Tuesday and wanted to come in and get checked - Related Data Home Medications Medication Instructions Recorded Confirmed Buspirone HCl [Buspar 10mg 10 mg PO TID 05/14/18 01/29/21 tablet] omeprazole 20 mg capsule,delayed 20 mg PO DAILY cap 11/29/19 01/29/21 release cetirizine 10 mg tablet 10 mg PO DAILY PRN 12/19/20 01/29/21 montelukast 10 mg tablet 10 mg PO DAILY 12/19/20 01/29/21 Previous Rx's Medication Instructions Recorded methocarbamoL [Methocarbamol 500mg 500 mg PO BID PRN #10 tab 10/16/20 Tablet] Azithromycin [Z-Faheem 250mg Tab] 250 mg PO DIRECTED #6 tab 02/02/21 predniSONE [Prednisone 20mg 20 mg PO BID 3 Days #6 tab 02/02/21 Tab] Allergies Allergy/AdvReac Type Severity Reaction Status Date / Time iodine [IODINE] Allergy Severe S-SWELLS-OR Verified 01/29/21 15:49 AL/THROAT latex [LATEX] Allergy Intermediate I-RASH Verified 01/29/21 15:49 Fish Containing Products Allergy Mild Verified 01/29/21 1
[2021-02-02 11:51] LABS: UTC Strep Screen (Rapid) Negative (Negative)
[2021-02-02 11:52] LABS: UTC Influenza A Antigen Negative (Negative); UTC Influenza B Antigen Negative (Negative)
[2021-02-02 11:58] VITALS: BP 153/86; PULSE 96; RESP 20; TEMP 37.2; O2SAT 100
== END 2021-02-02 12:04 | disposition home or self-care (01) ==
PROVIDERS: Emergency Provider Nurse Practitioner; PCP Family Medicine
DX: J32.9 Chronic sinusitis, unspecified (principal); K21.9 Gastro-esophageal reflux disease without esophagitis; I10 Essential (primary) hypertension
CPT/HCPCS: 87804; 87880; 99203; G0463

== ENCOUNTER → 2021-02-03 11:47 | Outpatient (CLI) | payer BC, SELFPAY ==
[2021-02-03 12:15] LABS: Basophils % 0.6 % (0.1-2.0); Eosinophils % 0.2 % (0.1-12.0); Hematocrit 37.9 % (37.0-47.0); Lymphocytes # 1.9 K/mm3 (0.7-4.5); Mean Corpuscular HGB Conc 31.7 g/dL (31.8-35.4); Mean Corpuscular Hemoglobin 25.6 pg (27.0-31.2); Mean Corpuscular Volume 80.8 fl (81-99); Mean Platelet Volume 8.3 fl (7.4-10.4); Monocytes # 0.3 K/mm3 (0.1-1.0); Monocytes % 4.6 % (1.7-9.3); Neutrophils # 5.3 K/mm3 (1.8-7.8); Neutrophils % 69.7 % (37.0-80.0); Platelet Count 366 K/mm3 (142-424); Red Blood Count 4.69 M/mm3 (4.20-5.40); Red Cell Distribution Width 14.6 % (11.5-17.5); White Blood Count 7.5 K/mm3 (4.8-10.8)
[2021-02-03 12:22] LABS: Amphetamine/Metha Screen,Urine Negative ng/ml (<1000); Benzodiazepines Screen,Urine Negative ng/ml (<200)
[2021-02-03 12:23] LABS: Barbiturates Screen,Urine Negative ng/ml (<200)
[2021-02-03 12:24] LABS: Cannabinoid Screen,Urine Negative ng/ml (<50); Methadone Screen,Urine Negative ng/ml (<300)
[2021-02-03 12:25] LABS: Cocaine Screen,Urine Negative ng/ml (<300)
[2021-02-03 12:26] LABS: Opiate Screen,Urine Negative ng/ml (<300); Phencyclidine Screen,Urine Negative ng/ml (<25)
[2021-02-03 12:31] LABS: Chloride 108 mmol/L (98-107); Potassium 4.2 mmoL/L (3.5-5.1); Sodium 140 mmol/L (136-145)
[2021-02-03 12:32] LABS: HCG Qualitative, Serum Negative (Negative)
[2021-02-03 12:34] LABS: Alanine Aminotransferase 25 U/L (12-78); Albumin Level 4.1 g/dl (3.5-5.0); Albumin/Globulin Ratio 1.4 (1.1-1.8); Alkaline Phosphatase 107 U/L (38-126); Anion Gap 11.2 mEq/L (5-15); Aspartate Amino Transferase 24 U/L (14-36); Bilirubin,Total 0.2 mg/dl (0.2-1.3); Blood Urea Nitrogen 7 mg/dl (7-17); Calcium 8.9 mg/dl (8.4-10.2); Carbon Dioxide 25 mmol/L (22.0-30.0); Estimated Glomerular Filt Rate 117 ml/min (>60); GFR (African American) 142 ML/MIN (>60); Globulin 2.9 g/dL (1.3-3.2); Glucose 108 mg/dl (74-100)
== END ==
PROVIDERS: Visit Provider Obstetrics & Gynecology
DX: Z01.812 Encounter for preprocedural laboratory examination (principal); Z11.52 Encounter for screening for COVID-19; N92.0 Excessive and frequent menstruation with regular cycle
CPT/HCPCS: 36415; 80053; 80305; 84703; 85025; C9803; U0003; U0005

== ENCOUNTER 2021-02-06 06:13 | Day surgery (SDC) | payer BC, SELFPAY ==
[2021-02-03 11:12] VITALS: BMI 53.1
[2021-02-06] VITALS (9 sets, daily range): BP systolic 122–151; BP diastolic 78–97; PULSE 60–95; RESP 12–18; TEMP 36.4–36.9; O2SAT 96–100
--- NOTE | 2021-02-06 07:18 | HMH.ANESCL ---
[facility] Anesthesia Checklist - Structural Data Admitted From: Home Planned Operative Procedure/s: d/c,hyst,novasure Consent for Planned Operative Procedure(s) Verified: Yes - Additional verifications Anesthesia Reactions: Yes (difficulty keeping sedated, nausea) Hx Blood Transfusions: No Blood Transfusion Reaction: No - Airway Assessment C-Spine Mobility Assessed: Yes TMJ Mobility Assessed: Yes Dentition: Good Dentition - Neurological Assessment Level of Consciousness: Awake, Alert, Appropriate - Anesthesia Plan Anesthesia Risk discussed: Yes Anesthesia Plan: Verified ASA Class: III Anesthesia Type: General [facility] History I have reviewed the patient's past medical history: Yes Medical History: Reports:: Gastroesophageal Reflux Disease(GERD), Hypertension, Migraine, Palpitations Denies:: Cancer, Diabetes Mellitus Type 1, Diabetes Mellitus Type 2, Internal Pacemaker, Lung Disease, MRSA, Seizures *Have you ever received a pneumonia vaccine?: No *Have you received a flu vaccine this season?: No Other Medical History: Reports: Anemia, Other. Denies: Blood Transfusion Reaction Anesthesia experience/problems:: nausea Other Surgeries: Yes: Cholecystectomy, Colonoscopy, , EGD, Other. No: Pacemaker Amputation: No Fractures: No - *Social History Smoking Status: Never smoker Alcohol Intake: never Alcohol Intake Frequency:: holidays/special occasions only Substance Use Type: denies use *Occupational Status:: employed Household Members: family *Travel in the last 8 weeks: None Family Hx:: Hypertension, Diabetes, Stroke, Cancer, Coronary Artery Disease [employer] history: Spontaneous
--- NOTE | 2021-02-06 09:07 | P.PN_ITS ---
[facility] Anesthesia Record Part I Intake, IV Amount: 1,000 Estimated blood loss (mL): 0 Urine output (mL): 0 Blood Pressure: 147/82 SaO2: 98 Pulse Rate: 91 Respiratory Rate: 12 Temperature: 97.5 F Patient is:: Awake, Stable Stable to PACU at:: 09:00
--- NOTE | 2021-02-06 10:54 | P.OP_ITS ---
Date of procedure: 02/06/21 Pre-op Diagnosis:: Heavy Menstrual Bleeding Dysfunctional Uterine Bleeding Morbid Obesity Post-op Diagnosis:: Same Procedure performed:: D&C Hysteroscopy Novasure Endometrial Ablation Surgeon:: Nina Cabrales MD MANAGER PROVIDER RELATIONS:: Nils Trivedi Anesthesia: GETA Estimated blood loss (mL): 10 Operative findings:: grossly normal uterine cavity Operative note:: The patient was taken to the OR where general anesthesia was administered without difficulty. She was prepped/draped in the normal sterile fashion in supine position. The cervix was dilated until hysteroscope could be accomodated. The hysteroscope was introduced through the cervix into the uterus and the cavity surveyed. No fibroids or polyps were observed within the cavity. Sharp curettage was performed and the specimen sent for pathology. The Novasure device was introduced into the uterus. The cavity length was measured at 5.5cm and width at 3.6cm, and the cavity assessment was successful. The Novasure was deployed and the endometrial ablation was completed in 109 seconds, and without complication. All instruments were removed from her vagina, she was awakened from anesthesia and taken to PACU in stable condition. Condition: stable Disposition: PACU Specimens:: Endometrial curettings Complications:: None
[2021-02-09 09:42] VITALS: BP 131/89; PULSE 64; TEMP 36.6
--- NOTE | 2021-02-09 09:42 | P.PN_ITS ---
[facility] Anesthesia Record Part II Discharge Time: 09:30 Destination: Surgical Day Care (OP Surgery) PACU nurse assessment reviewed?: Yes Patient Condition:: Good Anesthesia Complications:: None Swallowing reflex intact?: Yes Cyanosis?: No Blood Pressure: 131/89 Pulse Rate: 64 Temperature: 98 F Mental Status: Alert & Oriented Pain level:: 0 Nausea and/or vomitting:: None Intake, IV Amount: 0
== END 2021-02-06 10:01 | disposition home or self-care (01) ==
LOC: OR 06:14
PROVIDERS: PCP Family Medicine; Visit Provider Obstetrics & Gynecology
PROC: (CPT 58563; principal; 2021-02-06 07:45)
DX: N92.0 Excessive and frequent menstruation with regular cycle (principal); N93.8 Other specified abnormal uterine and vaginal bleeding; E66.01 Morbid (severe) obesity due to excess calories; Z68.43 Body mass index [BMI] 50.0-59.9, adult; K21.9 Gastro-esophageal reflux disease without esophagitis; I10 Essential (primary) hypertension; G43.909 Migraine, unspecified, not intractable, without status migrainosus; R00.2 Palpitations; Z79.899 Other long term (current) drug therapy; Z90.49 Acquired absence of other specified parts of digestive tract; Z82.3 Family history of stroke; Z83.3 Family history of diabetes mellitus; Z82.49 Family history of ischemic heart disease and other diseases of the circulatory system; Z80.9 Family history of malignant neoplasm, unspecified
CPT/HCPCS: 58563; 96374; J2405

== ENCOUNTER → 2021-03-06 10:29 | Outpatient (CLI) | payer BC, SELFPAY ==
[2021-03-07 15:09] LABS: Covid-19 Nasal PCR Sendout Lex NOT DETECTED
== END ==
PROVIDERS: Visit Provider Nurse Practitioner
DX: Z20.822 Contact with and (suspected) exposure to COVID-19 (principal)
CPT/HCPCS: C9803; U0004; U0005

== ENCOUNTER 2021-04-13 09:06 | Emergency (ER) | payer BC, SELFPAY ==
[2021-04-13 09:42] VITALS: BP 127/70; PULSE 72; RESP 19; TEMP 36.8; O2SAT 97; BMI 51.5
[2021-04-13 09:45] LABS: UTC Strep Screen (Rapid) Negative (Negative)
--- NOTE | 2021-04-13 09:45 | HMH.EDUTC ---
[facility] [place] Clinical Impression: Viral syndrome Pharyngitis Qualifiers: Pharyngitis/tonsillitis etiology: unspecified etiology Qualified Code(s): J02.9 - Acute pharyngitis, unspecified Disposition: Home, Self-Care Condition on Discharge: Good Instructions: DI for Pharyngitis/Tonsillopharyngitis -- Child, Preventing the Spread of Coronavirus Discharge Instructions Additional Instructions: Drink plenty of fluids. Take tylenol or ibuprofen for pain or fever. Take the medications as directed. Follow up with your regular doctor. GO TO THE ER FOR ANY WORSENING SYMPTOMS Quarantine until you know the results of your covid-19 test. Notify your school or workplace of your results and follow their instructions regarding return to work/school. Prescriptions: Brompheniramine/Pseudoephed/Dm [Bromfed Dm Cough Syrup] 5 ml PO Q6HP PRN #240 ml PRN Reason: Cough Transmission Status: Received by [facility] predniSONE [Deltasone 10mg tablet] 10 mg PO BID 3 Days #6 tab Transmission Status: Received by [facility] Azithromycin [Z-Faheem 250mg Tab*] 250 mg PO UD DOSE PK #6 tab Transmission Status: Received by [facility] Referrals: Christopher Guzman II, MD [Primary Care Provider] - Forms: Work/School Release Time of Disposition: 10:38 Medical Decision Making - Medical Records Medical records reviewed: No: I reviewed the patient's medical records. - Joe Inquiry Pt receiving controlled substance: No Vital Signs: 04/13/21 09:42 04/13/21 10:43 Temperature 98.3 F 98.3 F Temperature Source Oral Pulse Rate 72 Pulse Rate [Left] 72 Respiratory Rate 19 19 Blood Pressure 127/70 Blood Pressure [Right Arm] 127/70 Blood Pressure Mean [Right Arm] 89 02 Sat by Pulse Oximetry 97 - Lab Data Lab results reviewed: Yes: I reviewed the patient's lab results. Lab Results 04/13/21 09:44: Strep Scn Rapid Clinic Negative 04/13/21 10:00: Urine Color Yellow, Urine Appearance Clear, Urine pH 7.0, Ur Specific [place] 1.020, Urine Protein Negative, Urine Glucose (UA) Negative, Urine Ketones Negative, Urine Blood Negative, Urine Nitrate Negative, Urine Bilirubin Negative, Urine Urobilinogen 0.2, Ur Leukocyte Esterase Negative 04/13/21 10:01: Influenza Type A Ag Negative, Influenza Type B Ag Negative [facility] H[place] - General Stated complaint: sore throat, bilateral ear pain Time Seen by Provider: 04/13/21 09:45 - History of Present Illness Provider Complaint: She c/o that she has had sore throat, body aches, chills and feeling bad since yesteday. - Related Data Home Medications Medication Instructions Recorded Confirmed Buspirone HCl [Buspar 10mg 10 mg PO TID 05/14/18 02/03/21 tablet] omeprazole 20 mg capsule,delayed 20 mg PO DAILY cap 11/29/19 02/03/21 release cetirizine 10 mg tablet 10 mg PO DAILY PRN 12/19/20 02/03/21 montelukast 10 mg tablet 10 mg PO DAILY 12/19/20 02/03/21 Albuterol Sulfate [Albuterol 1 puff INHALATION NEEDED PRN 02/03/21 02/03/21 Sulfate Hfa] Azithromycin [Z-Faheem 250mg Tab] 250 mg PO DIRECTED 02/03/21 02/03/21 Cholecalciferol (Vitamin D3) 1,000 unit PO DAILY 02/03/21 02/03/21 [Vitamin D3 1,000 Unit Cap] Fluticasone Propionate [Flovent 1 puffs INHALATION DAILY 02/03/21 02/03/21 Hfa 110mcg Inhaler] predniSONE [Prednisone 20mg 20 mg PO BID 02/03/21 02/03/21 Tab] Previous Rx's Medication Instructions Recorded Azithromycin [Z-Faheem 250mg Tab*] 250 mg PO UD DOSE PK #6 tab 04/13/21 Brompheniramine/Pseudoephed/Dm 5 ml PO Q6HP PRN #240 ml 04/13/21 [Bromfed Dm Cough Syrup] predniSONE [Deltasone 10mg tablet] 10 mg PO BID 3 Days #6 tab 04/13/21 Allergies Allergy/AdvReac Type Severity Reaction Status Date / Time iodine [IODINE] Allergy Severe S-SWELLS-OR Verified 02/03/21 11:16 AL/THROAT latex [LATEX] Allergy Intermediate I-RASH Verified 02/03/21 11:16 Fish Containing Products Allergy Mild Verified
[2021-04-13 10:01] LABS: Apearance,Urine Clear (Clear); Color,Urine Yellow (Yellow); Glucose,Urine (UA) Negative (Negative); Protein,Urine Negative (Negative)
[2021-04-13 10:03] LABS: Bilirubin,Urine Negative (Negative); Blood, Urine Negative (Negative); Ketones,Urine Negative (Negative); UTC Leukocyte Esterase,Urine Negative (Negative); UTC Nitrate,Urine Negative (Negative); Urobilinogen,Urine 0.2 EU/dl (0.2)
[2021-04-13 10:12] LABS: UTC Influenza A Antigen Negative (Negative); UTC Influenza B Antigen Negative (Negative)
[2021-04-13 10:43] VITALS: BP 127/70; PULSE 72; RESP 19; TEMP 36.8
== END 2021-04-13 10:44 | disposition home or self-care (01) ==
PROVIDERS: Emergency Provider Nurse Practitioner Family; PCP Family Medicine
DX: B00.2 Herpesviral gingivostomatitis and pharyngotonsillitis (principal); B34.9 Viral infection, unspecified; H92.03 Otalgia, bilateral; R00.2 Palpitations; Z20.822 Contact with and (suspected) exposure to COVID-19; I10 Essential (primary) hypertension; K21.9 Gastro-esophageal reflux disease without esophagitis; D64.9 Anemia, unspecified; G43.909 Migraine, unspecified, not intractable, without status migrainosus; Z79.51 Long term (current) use of inhaled steroids; Z79.899 Other long term (current) drug therapy; Z91.040 Latex allergy status; Z91.013 Allergy to seafood; Z88.8 Allergy status to other drugs, medicaments and biological substances; Z82.49 Family history of ischemic heart disease and other diseases of the circulatory system; Z83.3 Family history of diabetes mellitus; Z80.9 Family history of malignant neoplasm, unspecified
CPT/HCPCS: 81003; 87086; 87804; 87880; 99213; C9803; G0463; U0003; U0005

== ENCOUNTER → 2021-04-20 14:34 | Outpatient (CLI) | payer BC, SELFPAY ==
[2021-04-20 17:55] LABS: HCG,Quantitative < 2 mIU/ml (0-5.42)
== END ==
LOC: LAB 14:34
PROVIDERS: Visit Provider Obstetrics & Gynecology
DX: Z32.01 Encounter for pregnancy test, result positive (principal)
CPT/HCPCS: 36415; 84702

== ENCOUNTER → 2021-04-30 09:40 | Outpatient (CLI) | payer BC, SELFPAY ==
--- NOTE | 2021-04-30 09:40 | US_ITS ---
FINAL REPORT CLINICAL HISTORY: left lower quad pain FINDINGS: Transvaginal and transpelvic sonographic images of the pelvis were obtained. It is of note that this was a difficult scan. The uterus is retroverted and measures 9.7 x 4.9 x 3.1 cm. The endometrium measures 8 mm, which is within normal limits. No uterine mass is identified. The right ovary measures 3 cm in length and left ovary measures 5 cm in length. Normal blood flow seen to the ovaries. There is a 3.2 x 2.1 left ovarian cyst. There is no evidence of free fluid. IMPRESSION: Left ovarian cyst. Reviewed, Interpreted and Dictated by Giacomo Sanchez MD Transcribed by Kathe Prince Authenticated by Giacomo Sanchez MD on 04/30/2021 12:57:12 PM [facility]
== END ==
LOC: RAD 09:40
PROVIDERS: PCP Family Medicine; Visit Provider Obstetrics & Gynecology
DX: R10.32 Left lower quadrant pain (principal)
CPT/HCPCS: 76830

== ENCOUNTER 2021-06-07 20:09 | Emergency (ER) | payer BC, SELFPAY ==
[2021-06-07 20:20] VITALS: BP 145/101; PULSE 83; RESP 18; TEMP 36.8; O2SAT 97; BMI 52.0
--- NOTE | 2021-06-07 20:26 | XR_ITS ---
PROCEDURE INFORMATION: Exam: XR Left Foot Exam date and time: 06/07/2021 8:25 PM Age: 31 years old Clinical indication: Pain; Foot; Left; Additional info: Injury twisted foot TECHNIQUE: Imaging protocol: XR Left foot. Views: 3 or more views. COMPARISON: No relevant prior studies available. FINDINGS: Bones/joints: Normal. Soft tissues: Diffuse soft tissue swelling. IMPRESSION: No acute bony abnormality, but there is diffuse soft tissue swelling which may reflect ligamentous injury.
--- NOTE | 2021-06-07 20:26 | HMH.EDUTC ---
[facility] [place] Disposition Clinical Impression: Sprain Disposition: Home, Self-Care Condition on Discharge: Good Instructions: DI for Foot Sprain Additional Instructions: Weightbearing as tolerated rest Ice with cold pack for 20 minutes remove may repeat for comfort every hour Bhargav wrap for support and swelling no less in the shower. Be sure not too tight but not to lose either Elevate with ankle above your heart as much as possible to help reduce swelling and therefore pain Ibuprofen every 6 hours as needed for pain or inflammation. If needs something more you can take Tylenol every 4 hours as needed as long as her primary care has told he was okayed for you to take both. If improving any do not need to follow-up you can bring begin exercising 2-3 weeks after injury. Follow-up immediately if new or worsening symptoms or no noticeable improvement over the next 3-5 days. call ortho tomorrow Referrals: Christopher Guzman II, MD [Primary Care Provider] - Brian Bustamante MD [Staff Physician] - Time of Disposition: 20:56 Medical Decision Making - Joe Inquiry Pt receiving controlled substance: No Vital Signs: 06/07/21 20:20 06/07/21 20:44 Temperature 98.3 F 98.3 F Temperature Source Oral Pulse Rate 83 Pulse Rate [Left Brachial] 83 Respiratory Rate 18 18 Blood Pressure 145/101 H Blood Pressure [Left Arm] 145/101 H Blood Pressure Mean [Left Arm] 115 Blood Pressure Source [Left Arm] Automatic Cuff Blood Pressure Position [Left Arm] Sitting 02 Sat by Pulse Oximetry 97 Oxygen Delivery Method Room Air Orders (Tests/Meds): ORDERS Category Date Time Status Foot XR left minimum 3 views [XR foot LT min 3V] Stat Exams 06/07/21 20:26 Taken [facility] [place] HPI - General Chief complaint: Urgent Treatment Center Stated complaint: Left foot pain Time Seen by Provider: 06/07/21 20:26 Mode of Arrival: Ambulatory Source of Information: Patient Limitations: No Limitations Description of Symptoms (Recalled from Triage Doc. by RN): PATIENT [place] SHE STEPPED ON A WIRE AND TWEAKED HER LEFT FOOT. C/O PAIN TO THAT FOOT AND STATES IT HAS CRACKED TWICE TODAY WHILE WALKING HEENT Symptoms (Recalled from RN notes): No Resp Symptoms (Recalled from RN notes): No Skin Symptoms (Recalled from RN notes): No MS Symptoms (Recalled from RN notes): Yes Functional Status (Recalled from RN notes): WNL - History of Present Illness Provider Complaint: 31 yr old female presents for left foot pain. pt states she stepped on a aire yesterday and twisted her foot and then today when she walks her foot cracks. - Related Data Home Medications Medication Instructions Recorded Confirmed Buspirone HCl [Buspar 10mg 10 mg PO TID 05/14/18 02/03/21 tablet] omeprazole 20 mg capsule,delayed 20 mg PO DAILY cap 11/29/19 02/03/21 release cetirizine 10 mg tablet 10 mg PO DAILY PRN 12/19/20 02/03/21 montelukast 10 mg tablet 10 mg PO DAILY 12/19/20 02/03/21 Albuterol Sulfate [Albuterol 1 puff INHALATION NEEDED PRN 02/03/21 02/03/21 Sulfate Hfa] Cholecalciferol (Vitamin D3) 1,000 unit PO DAILY 02/03/21 02/03/21 [Vitamin D3 1,000 Unit Cap] Allergies Allergy/AdvReac Type Severity Reaction Status Date / Time iodine [IODINE] Allergy Severe S-SWELLS-OR Verified 04/27/21 14:56 AL/THROAT latex [LATEX] Allergy Intermediate I-RASH Verified 04/27/21 14:56 Fish Containing Products Allergy Mild Verified 04/27/21 14:56 [FISH CONTAINING PRODUCTS] lavender (Lavandula Allergy Verified 04/27/21 14:56 angustifolia) diatrizoate meglumine AdvReac Hives Verified 04/27/21 14:56 [From Gastrografin] diatrizoate sodium AdvReac Hives Verified 04/27/21 14:56 [From Gastrografin] seafood Allergy Uncoded 04/27/21 14:56 - Worker's Comp Is this a Worker's Comp case?: No H History - Hepatitis A Screen Attestation statement:: This patient has been screened for Hepatitis A risk factors.
[2021-06-07 20:44] VITALS: BP 145/101; PULSE 83; RESP 18; TEMP 36.8; O2SAT 97
== END 2021-06-07 21:00 | disposition home or self-care (01) ==
PROVIDERS: Emergency Provider Nurse Practitioner Family; PCP Family Medicine
DX: S93.602A Unspecified sprain of left foot, initial encounter (principal); X50.1XXA Overexertion from prolonged static or awkward postures, initial encounter; Y92.830 Public park as the place of occurrence of the external cause
CPT/HCPCS: 73630; 99212; G0463

== ENCOUNTER 2021-07-22 09:43 | Emergency (ER) | payer BC, SELFPAY ==
[2021-07-22 09:55] VITALS: BP 120/86; PULSE 72; RESP 19; TEMP 36.7; O2SAT 98; BMI 44.0
[2021-07-22 10:03] LABS: Adenovirus,PCR Not Detected (NotDetected); Bordetella Pertussis Not Detected (NotDetected); Chlamydophila Pneumoniae, PCR Not Detected (NotDetected); Coronavirus 19, PCR Not Detected (NotDetected); Coronavirus 229E Not Detected (NotDetected); Coronavirus NL63 Not Detected (NotDetected); Coronavirus OC43 Not Detected (NotDetected); Coronovirus HKU1,PCR Not Detected (NotDetected); Human Metapneumovirus Not Detected (NotDetected); Influenza A, PCR Not Detected (NotDetected); Influenza AH1, 2009 Not Detected (NotDetected); Influenza AH1, PCR Not Detected (NotDetected); Influenza AH3,PCR Not Detected (NotDetected); Influenza B, PCR Not Detected (NotDetected); Mycoplasma Pneumoniae, PCR Not Detected (NotDetected); Parainfluenza 1, PCR Not Detected (NotDetected); Parainfluenza 2, PCR Not Detected (NotDetected); Parainfluenza 4, PCR Not Detected (NotDetected); Respiratory Syncytial Virus Not Detected (NotDetected); Rhinovirus/Enterovirus Not Detected (NotDetected)
[2021-07-22 10:13] LABS: Strep Scrn Group A (Rapid) Negative (Negative)
--- NOTE | 2021-07-22 10:18 | HMH.EDUTC ---
[facility] [place] Disposition Clinical Impression: Viral upper respiratory tract infection with cough Disposition: Home, Self-Care Condition on Discharge: Good Instructions: Sore Throat, DI for Fever (Symptom) -- Adult, Cough, DI for Cough -- Adult Additional Instructions: *Monitor Temp, Over the counter Motrin or Tylenol as directed/as needed Tylenol every 4 hours and Motrin every 6 hours (as long as your family doctor has told you that you can take it) for fever or pain. and straight to ER if unable to lower temp less than 101.0 after medication given *Warm salt water gargles may help to soothe the throat *Throat Lozenges *Warm fluids like tea with honey may help to soothe the throat *Sleep elevated *Humidifier/Vaporizer Your throat swab was sent for culture. Those results are typically sent to your primary care. Be sure to follow up in 2-3 days with your family doctor/primary care physician if no improvement so they can review those result and treat if necessary. If you don?t have a primary care doctor, I recommend you get one but in the mean time, you will have to return to a walk in clinic Follow up IMMEDIATELY for new or worsening symptoms or no Noticeable improvement over the next 48-72 hours. 911 for difficulty breathing or swallowing You were tested for today for COVID19 your test result should be back in the next 24-48 hours, you may check your results on the [facility] My Health Portal Make sure to take your Vitamins Vit. C Vit D and Zinc if you can take them Prescriptions: guaiFENesin [Mucinex 600mg tablet] 1 - 2 tab PO Q12HP PRN #20 tab PRN Reason: Congestion Transmission Status: Pending to [facility] Referrals: Christopher Guzman II, MD [Primary Care Provider] - As needed Forms: Work/School Release Time of Disposition: 10:29 Medical Decision Making - Joe Inquiry Pt receiving controlled substance: No Joe was queried for this patient: No Vital Signs: 07/22/21 09:55 Temperature 98.0 F Temperature Source Oral Pulse Rate [Right Brachial] 72 Respiratory Rate 19 Blood Pressure [Right Arm] 120/86 Blood Pressure Mean [Right Arm] 97 Blood Pressure Source [Right Arm] Automatic Cuff Blood Pressure Position [Right Arm] Sitting 02 Sat by Pulse Oximetry 98 Oxygen Delivery Method Room Air - Lab Data Lab results reviewed: Yes: I reviewed the patient's lab results. Lab Results 07/22/21 10:00: Group A Strep Rapid Negative Orders (Tests/Meds): ORDERS Category Date Time Status Full Resp Panel w/COVID ([facility]) Routine Lab 07/22/21 10:00 Received Strep Screen Confirmation Stat Micro 07/22/21 10:00 Received [facility] UTC HPI - General Stated complaint: cough, chest congestion, sore throat, ear pain Time Seen by Provider: 07/22/21 10:18 Mode of Arrival: Ambulatory Source of Information: Patient Limitations: No Limitations Description of Symptoms (Recalled from Triage Doc. by RN): PATIENT C/O FEVER, COUGH, CHEST CONGESTION, SORE THROAT, EAR ACHE, AND RUNNY NOSE HEENT Symptoms (Recalled from RN notes): Yes Resp Symptoms (Recalled from RN notes): Yes Skin Symptoms (Recalled from RN notes): No MS Symptoms (Recalled from RN notes): No Functional Status (Recalled from RN notes): WNL - History of Present Illness Provider Complaint: Patient states that she has not felt well for several days States that she has been having sore throat, fever, body aches, ear ache and chest congestion States that this morning she was still feeling bad and her throat was worse so she came in - Related Data Home Medications Medication Instructions Recorded Confirmed Buspirone HCl [Buspar 10mg 10 mg PO TID 05/14/18 02/03/21 tablet] omeprazole 20 mg capsule,delayed 20 mg PO DAILY cap 11/29/19 02/03/21 release cetirizine 10 mg tablet 10 mg PO DAILY PRN 12/19/20 02/03/21 montelukast 10 mg tablet 10 mg PO DAILY 12/19/20 02/03/21 Albuterol Sulfate [Albuterol 1 puff INHALATION NEEDED PRN 02/03/21 02/03/21 Perez
[2021-07-22 10:37] VITALS: BP 120/86; PULSE 72; RESP 19; TEMP 36.7; O2SAT 98
[2021-07-22 13:17] LABS: Parainfluenza 3, PCR Detected (NotDetected)
== END 2021-07-22 10:40 | disposition home or self-care (01) ==
PROVIDERS: Emergency Provider Nurse Practitioner; PCP Family Medicine
DX: J06.9 Acute upper respiratory infection, unspecified (principal)
CPT/HCPCS: 87430; 87581; 87632; 87798; 99212; C9803; G0463; U0003; U0005

== ENCOUNTER 2021-08-28 21:59 | Emergency (ER) | payer BC, SELFPAY ==
[2021-08-28 22:01] VITALS: BP 200/100; PULSE 85; RESP 19; TEMP 36.9; O2SAT 100; BMI 52.0
[2021-08-28 22:11] VITALS: BP 150/88; PULSE 82; O2SAT 99
--- NOTE | 2021-08-28 22:15 | ECG_ITS ---
APPROVED REPORT Exam: Resting ECG HR:80 bpm ECG Measurements Heart Rate 80 AXES RI 131 P 54 QRSd 86 QRS 85 QT 351 T 38 QTc 387 Conclusion SINUS RHYTHM WITH SINUS ARRHYTHMIA LOW QRS VOLTAGE IN PRECORDIAL LEADS [QRS DEFLECTION < 1.0 mV IN CHEST LEADS] BORDERLINE ECG UNCONFIRMED REPORT Electronically signed by : Broderick Marino MD 08/29/2021 21:38:53
--- NOTE | 2021-08-28 22:23 | XR_ITS ---
PROCEDURE INFORMATION: Exam: XR Chest Exam date and time: 08/28/2021 10:53 PM Age: 31 years old Clinical indication: Cough and shortness of breath and other: Covid; Additional info: Cough, home covid + TECHNIQUE: Imaging protocol: Radiologic exam of the chest. Views: 2 views. COMPARISON: CR XR CHEST 2V 11/14/2020 8:22 PM FINDINGS: Lungs: No consolidation. Pleural spaces: No pneumothorax. Heart/Mediastinum: No cardiomegaly. Bones/joints: No acute fracture. IMPRESSION: No acute findings.
[2021-08-28 22:31] LABS: Influenza A, PCR Not Detected (NotDetected); Influenza B, PCR Not Detected (NotDetected)
[2021-08-28 22:33] VITALS: BP 118/71; PULSE 81; RESP 18; O2SAT 100
[2021-08-28 22:36] LABS: Basophils # 0.1 K/mm3 (0-0.2); Basophils % 1.2 % (0.1-2.0); Eosinophils # 0.3 K/mm3 (0.0-0.4); Eosinophils % 3.9 % (0.1-12.0); Hematocrit 33.6 % (37.0-47.0); Lymphocytes # 2.5 K/mm3 (0.7-4.5); Lymphocytes % 37.9 % (10-50); Mean Corpuscular HGB Conc 32.6 g/dL (31.8-35.4); Mean Corpuscular Hemoglobin 25.2 pg (27.0-31.2); Mean Corpuscular Volume 77.2 fl (81-99); Mean Platelet Volume 7.5 fl (7.4-10.4); Monocytes # 0.5 K/mm3 (0.1-1.0); Monocytes % 7.4 % (1.7-9.3); Neutrophils # 3.3 K/mm3 (1.8-7.8); Neutrophils % 49.7 % (37.0-80.0); Platelet Count 296 K/mm3 (142-424); Red Blood Count 4.35 M/mm3 (4.20-5.40); Red Cell Distribution Width 14.2 % (11.5-17.5); White Blood Count 6.7 K/mm3 (4.8-10.8)
[2021-08-28 22:40] LABS: Alanine Aminotransferase 28 U/L (12-78); Albumin Level 3.9 g/dl (3.5-5.0); Alkaline Phosphatase 126 U/L (38-126); Anion Gap 7.6 mEq/L (5-15); Aspartate Amino Transferase 24 U/L (14-36); Bilirubin,Unconjugated 0.3 mg/dL (0.0-1.1); Blood Urea Nitrogen 6 mg/dl (7-17); Calcium 8.7 mg/dl (8.4-10.2); Carbon Dioxide 30 mmol/L (22.0-30.0); Chloride 103 mmol/L (98-107); Creatinine Clearance Estimated 78 mL/min (50-200); Estimated Glomerular Filt Rate 84 ml/min (>60); GFR (African American) 102 ML/MIN (>60); Glucose 102 mg/dl (74-100); Magnesium 1.9 mg/dl (1.6-2.3); Potassium 3.6 mmoL/L (3.5-5.1); Sodium 137 mmol/L (136-145); Total Protein,Serum 7.1 g/dl (6.3-8.2)
[2021-08-28 22:42] LABS: HCG Qualitative, Serum Negative (Negative)
[2021-08-28 22:45] LABS: C-Reactive Protein 65.7 mg/L (0-4)
--- NOTE | 2021-08-28 22:45 | HMH.EDFEV ---
ED Disposition Clinical Impression: COVID-19, Morbid obesity with body mass index of 50 or higher Disposition: Home, Self-Care Condition on Discharge: Good Instructions: DI for COVID-19 (Suspected or Confirmed ) Additional Instructions: use meds and see pcp for follow up Prescriptions: Molnupiravir [Molnupiravir (Eua)] 800 mg PO BID #40 cap Transmission Status: Pending to [facility] Referrals: Christopher Guzman II, MD [Primary Care Provider] - - Critical Care Critical Care Time: No Attestation: On 08/28/21, the high probability of a clinically significant, sudden or life threatening deterioration of the following system(s) required my full and direct attention, intervention and personal management. The time I documented below is in addition to time spent performing reported procedures but includes the following listed in this critical care notation. Medical Decision Making - Medical Records Medical records reviewed: Yes: I reviewed the patient's medical records. - Joe Inquiry Pt receiving controlled substance: No Vital Signs: 08/28/21 22:01 08/28/21 22:11 08/28/21 22:33 Temperature 98.5 F Temperature Source Oral Pulse Rate 82 81 Pulse Rate [Right] 85 Respiratory Rate 19 18 Blood Pressure 150/88 H 118/71 Blood Pressure [Right Arm] 200/100 H Blood Pressure Mean 86 Blood Pressure Mean [Right Arm] 133 Blood Pressure Source Manual Cuff/ Auscultation Blood Pressure Source [Right Arm] Automatic Cuff 02 Sat by Pulse Oximetry 100 99 100 Oxygen Delivery Method Room Air Room Air Room Air 08/28/21 23:05 Temperature Temperature Source Pulse Rate 84 Pulse Rate [Right] Respiratory Rate Blood Pressure 125/75 Blood Pressure [Right Arm] Blood Pressure Mean Blood Pressure Mean [Right Arm] Blood Pressure Source Blood Pressure Source [Right Arm] 02 Sat by Pulse Oximetry 98 Oxygen Delivery Method Room Air - Lab Data Lab results reviewed: Yes: I reviewed the patient's lab results. Lab Results 08/28/21 22:00: SARS-CoV-2 (PCR) Detected A, Influenza A Untype (PCR) Not detected, Influenza Type B (PCR) Not detected 08/28/21 22:18: WBC 6.7, RBC 4.35, Hgb 11.0 L, Hct 33.6 L, MCV 77.2 L, MCH 25.2 L, MCHC 32.6, RDW 14.2, Plt Count 296, MPV 7.5, Neut % (Auto) 49.7, Lymph % (Auto) 37.9, Glenn % (Auto) 7.4, Eos % (Auto) 3.9, Baso % (Auto) 1.2, Neut # (Auto) 3.3, Lymph # (Auto) 2.5, Glenn # (Auto) 0.5, Eos # (Auto) 0.3, Baso # (Auto) 0.1, ESR 31 H 08/28/21 22:18: Sodium 137, Potassium 3.6, Chloride 103, Carbon Dioxide 30, Anion Gap 7.6, BUN 6 L, Creatinine 0.80, Estimated Creat Clear 78, Estimated GFR 84, Est GFR ( Amer) 102, Glucose 102 H, Calcium 8.7, Magnesium 1.9, Total Bilirubin < 0.1 L, Direct Bilirubin 0.1, Conjugated Bilirubin 0.0, Indirect Bilirubin 0.2, Unconjugated Bilirubin 0.3, AST 24, ALT 28, Alkaline Phosphatase 126, Troponin I < 0.01, C-Reactive Protein 65.7 H, NT-Pro-B Natriuret Pep 119, Total Protein 7.1, Albumin 3.9, Procalcitonin 0.156 08/28/21 22:18: Serum HCG, Qual Negative Result diagrams: 08/28/21 22:18 08/28/21 22:18 Orders (Tests/Meds): ED MEDICATIONS Generic Name Dose Route Start Last Admin Trade Name Freq PRN Reason Stop Dose Admin Sodium Chloride 1,000 mls @ 999 mls/hr 08/28/21 22:30 08/28/21 22:51 Sod Chlor 0.9% 1000ml Bag IV 08/28/21 23:30 999 mls/hr .Q1H1M MACIEL Administration Discontinued Medications Generic Name Dose Route Start Last Admin Trade Name Freq PRN Reason Stop Dose Admin Dexamethasone Sodium Phosphate 10 mg 08/28/21 22:29 08/28/21 22:51 Dexamethasone 4mg/Ml 5ml Mdv IV 08/28/21 22:30 10 mg ONCE ONE Administration Ketorolac Tromethamine 30 mg 08/28/21 22:29 08/28/21 22:51 Ketorolac 30mg/Ml Vial IV 08/28/21 22:30 30 mg ONCE ONE Administration ORDERS Category Date Time Status Troponin I Q3H Lab 08/29/21 01:30 Ordered Troponin I Q3H Lab 08/29/21 04:30 Ordered UA [Urinalysi
[2021-08-28 22:54] LABS: NT Pro Brain Natriuretic Pep. 119 pg/mL (0-125)
[2021-08-28 22:55] LABS: Bilirubin,Total < 0.1 mg/dl (0.2-1.3); Troponin I < 0.01 ng/ml (0.00-0.034)
[2021-08-28 22:55] LABS: Coronavirus 19, PCR Detected (NotDetected)
[2021-08-28 22:59] LABS: Erythrocyte Sedimentation Rate 31 mm/hr (0-20); Procalcitonin 0.156 ng/mL (0.0-2.0)
[2021-08-28 23:05] VITALS: BP 125/75; PULSE 84; O2SAT 98
[2021-08-28 23:11] LABS: Bilirubin,Direct 0.1 mg/dl (0.0-0.4); Bilirubin,Indirect 0.2 mg/dL (0.0-0.9)
[2021-08-28 23:30] VITALS: BP 114/60; PULSE 75; O2SAT 96
[2021-08-29] VITALS: BP 113/69; PULSE 79; O2SAT 96
[2021-08-29 00:23] VITALS: BP 113/69; PULSE 78; RESP 18; TEMP 36.8; O2SAT 99
== END 2021-08-29 00:26 | disposition home or self-care (01) ==
PROVIDERS: Emergency Provider Emergency Medicine; PCP Family Medicine
DX: U07.1 COVID-19 (principal); J02.9 Acute pharyngitis, unspecified; R00.2 Palpitations; R50.9 Fever, unspecified; D64.9 Anemia, unspecified; R53.81 Other malaise; I10 Essential (primary) hypertension; K21.9 Gastro-esophageal reflux disease without esophagitis; E66.01 Morbid (severe) obesity due to excess calories; G43.909 Migraine, unspecified, not intractable, without status migrainosus; Z88.8 Allergy status to other drugs, medicaments and biological substances; Z91.040 Latex allergy status; Z91.013 Allergy to seafood; Z68.43 Body mass index [BMI] 50.0-59.9, adult; Z82.49 Family history of ischemic heart disease and other diseases of the circulatory system; Z83.3 Family history of diabetes mellitus; Z80.9 Family history of malignant neoplasm, unspecified
CPT/HCPCS: 71046; 80048; 80076; 83735; 83880; 84145; 84484; 84703; 85025; 85651; 86140; 93005; 96361; 96374; 96375; 99285; C9803; U0003; U0005

== ENCOUNTER 2021-10-20 11:48 | Emergency (ER) | payer BC, SELFPAY ==
--- NOTE | 2021-10-20 11:57 | XR_ITS ---
FINAL REPORT CLINICAL HISTORY: PAIN FINDINGS: LEFT WRIST Three views demonstrate no acute fracture or dislocation. The visualized joint spaces are normally aligned. The soft tissues are unremarkable. IMPRESSION: No acute bony abnormality. Reviewed, Interpreted and Dictated by Fredy Rust III, MD Transcribed by Kathe Prince Authenticated and [facility]
[2021-10-20 12:35] VITALS: BP 127/89; PULSE 87; RESP 18; TEMP 36.6; O2SAT 98; BMI 47.2
--- NOTE | 2021-10-20 12:51 | EXP.UTC ---
Discharge Plan Disposition Patient Disposition: Home, Self-Care Condition: Good Prescriptions Prescriptions: No Action omeprazole 20 mg capsule,delayed release(DR/EC) 20 mg PO DAILY cetirizine [Zyrtec] 10 mg tablet 10 mg PO DAILY PRN (Reason: ALLERGIES) montelukast [Singulair] 10 mg tablet 10 mg PO DAILY albuterol sulfate 8.5 GM HFA aerosol inhaler 1 puff INHALATION NEEDED PRN (Reason: SOA) cholecalciferol (vitamin D3) 1,000 UNIT capsule 1,000 unit PO DAILY guaifenesin 600 MG tablet extended release 12hr 1 - 2 tab PO Q12HP PRN (Reason: Congestion) Qty: 20 0RF buspirone 10 MG tablet 10 mg PO TID molnupiravir 200 MG capsule 800 mg PO BID Qty: 40 0RF Referrals Follow up/Referrals: Provider,Referral, MD [Primary Care Provider] - See instructions Activity Restrictions/Add. Instructions Additional Instructions/Restrictions: *RICE, Rest the extremity, Ice 15-20 minutes 3-4 times daily, Compress- wear the bhargav wrap as discussed as much as possible to help reduce swelling and pain, Elevate the extremity when at rest *Bhargav wrap/Velcro wrist splint is for support and help control swelling, use it except in the shower. Be sure that is not to tight but not to loose either *Elevate when resting? *Ibuprofen 600-800mg every 6-8 hours as needed for pain an inflammation. If need something more can take Tylenol in between doses of Ibuprofen to help Immediately follow up with your family doctor for new or worsening of symptoms, or no noticeable improvement over the next 3-5 days You can call back to the [facility] later today for the reading of your xray Follow up with Orthopedics or Family Doctor if pain persist Clinical Impressions Clinical Impression: Sprain of left wrist Discharge ED Provider: Bev Stokes [facility] General Stated complaint: left wrist pain, no accident Mode of Arrival: Ambulatory Source of Information: Patient Limitations: No Limitations Time Seen by Provider: 10/20/21 12:51 Description of Symptoms (Recalled from Triage Doc. by RN): PATIENT C/O INJURY TO LEFT WRIST APPROX 1 WEEK AGO MOVING FURNITURE, AND STATES IT HAS GOTTEN WORSE WITH USE HEENT Symptoms (Recalled from RN notes): No Resp Symptoms (Recalled from RN notes): No Skin Symptoms (Recalled from RN notes): No MS Symptoms (Recalled from RN notes): Yes Functional Status (Recalled from RN notes): WNL History of Present Illness Provider Complaint: Patient states that she was moving furniture about a week ago when she started having pain in her left wrist with movement States that she didnt hit it or anything or fall but over the last week she has continued to have pain with movement so she came in Related Data Home Medications Medication Instructions Recorded Confirmed buspirone 10 mg tablet 10 mg PO TID Anxiety 05/14/18 02/03/21 omeprazole 20 mg capsule,delayed 20 mg PO DAILY GERD 11/29/19 02/03/21 release cetirizine 10 mg tablet (Zyrtec) 10 mg PO DAILY PRN ALLERGIES 12/19/20 02/03/21 montelukast 10 mg tablet 10 mg PO DAILY ALLERGIES 12/19/20 02/03/21 (Singulair) albuterol sulfate 90 mcg/actuation 1 puff inhalation NEEDED PRN SOA 02/03/21 02/03/21 aerosol inhaler cholecalciferol (vitamin D3) 25 1,000 unit PO DAILY Supplement 02/03/21 02/03/21 mcg (1,000 unit) capsule Previous Rx's Medication Instructions Recorded guaifenesin 600 mg tablet, 1 - 2 tab PO Q12HP PRN Congestion 07/22/21 extended release 12 hr #20 tabs molnupiravir 200 mg capsule (EUA) 800 mg PO BID #40 caps 08/28/21 Allergies Allergy/AdvReac Type Severity Reaction Status Date / Time iodine [IODINE] Allergy Severe S-SWELLS-OR Verified 04/27/21 14:56 AL/THROAT latex [LATEX] Allergy Intermediate I-RASH Verified 04/27/21 14:56 Fish Containing Products Allergy Mild Verified 04/27/21 14:56 [FISH CONTAINING PRODUCTS] lavender (Lavandula Allergy Verified 04/27/21 14:56 angustifolia) diatrizoate meglumine
[2021-10-20 13:20] VITALS: BP 127/89; PULSE 87; RESP 18; TEMP 36.6; O2SAT 98
== END 2021-10-20 13:25 | disposition home or self-care (01) ==
PROVIDERS: Emergency Provider Nurse Practitioner
DX: S63.502A Unspecified sprain of left wrist, initial encounter (principal); X50.0XXA Overexertion from strenuous movement or load, initial encounter
CPT/HCPCS: 73110; 99212; G0463

== ENCOUNTER 2021-12-15 13:30 | Emergency (ER) | payer BC, SELFPAY ==
[2021-12-15 13:31] VITALS: BP 128/68; PULSE 86; RESP 17; TEMP 36.8; O2SAT 98; BMI 53.8
--- NOTE | 2021-12-15 13:41 | HMH.EDNVD ---
Discharge Plan Disposition Patient Disposition: Home, Self-Care Condition: Good Prescriptions Prescriptions: New ondansetron 4 mg tablet,disintegrating 4 mg PO Q8H PRN (Reason: nausea and vomiting) 5 Days Qty: 15 0RF No Action omeprazole 20 mg capsule,delayed release(DR/EC) 20 mg PO DAILY cetirizine [Zyrtec] 10 mg tablet 10 mg PO DAILY PRN (Reason: ALLERGIES) montelukast [Singulair] 10 mg tablet 10 mg PO DAILY albuterol sulfate 8.5 GM HFA aerosol inhaler 1 puff INHALATION NEEDED PRN (Reason: SOA) cholecalciferol (vitamin D3) 1,000 UNIT capsule 1,000 unit PO DAILY guaifenesin 600 MG tablet extended release 12hr 1 - 2 tab PO Q12HP PRN (Reason: Congestion) Qty: 20 0RF buspirone 10 MG tablet 10 mg PO TID molnupiravir 200 MG capsule 800 mg PO BID Qty: 40 0RF Referrals Follow up/Referrals: Provider,Referral, MD [Referring] - See instructions Activity Restrictions/Add. Instructions Additional Instructions/Restrictions: follow up PCP, return here for worse Clinical Impressions Clinical Impression: Abdominal pain, Acute gastroenteritis Instructions Patient Instructions: Diarrhea, Acute Abdominal Pain, Nausea and Vomiting-Adult Discharge ED Provider: Carlitos Kemp Nausea/Vomiting/Diarrhea HPI General Chief complaint: Nausea/Vomiting/Diarrhea Stated complaint: nausea, vomiting, diarrhea, back pain Time Seen by Provider: 12/15/21 13:35 History of Present Illness HPI Narrative: n/v/d, mult times, 1 day, assoc with lbp complaint: nausea, vomiting and diarrhea Description of Vomiting: food contents and watery Description of Diarrhea: water Associated Abdominal Pain: Yes Location of pain: epigastric Severity: moderate Quality: cramping Consistency: intermittent Relieving factors: none Exacerbating factors: none Associated symptoms: denies other symptoms Related Data Home Medications Medication Instructions Recorded Confirmed buspirone 10 mg tablet 10 mg PO TID Anxiety 05/14/18 02/03/21 omeprazole 20 mg capsule,delayed 20 mg PO DAILY GERD 11/29/19 02/03/21 release cetirizine 10 mg tablet (Zyrtec) 10 mg PO DAILY PRN ALLERGIES 12/19/20 02/03/21 montelukast 10 mg tablet 10 mg PO DAILY ALLERGIES 12/19/20 02/03/21 (Singulair) albuterol sulfate 90 mcg/actuation 1 puff inhalation NEEDED PRN SOA 02/03/21 02/03/21 aerosol inhaler cholecalciferol (vitamin D3) 25 1,000 unit PO DAILY Supplement 02/03/21 02/03/21 mcg (1,000 unit) capsule Previous Rx's Medication Instructions Recorded guaifenesin 600 mg tablet, 1 - 2 tab PO Q12HP PRN Congestion 07/22/21 extended release 12 hr #20 tabs molnupiravir 200 mg capsule (EUA) 800 mg PO BID #40 caps 08/28/21 ondansetron 4 mg disintegrating 4 mg PO Q8H PRN nausea and 12/15/21 tablet vomiting 5 days #15 tabs Allergies Allergy/AdvReac Type Severity Reaction Status Date / Time iodine [IODINE] Allergy Severe S-SWELLS-OR Verified 04/27/21 14:56 AL/THROAT latex [LATEX] Allergy Intermediate I-RASH Verified 04/27/21 14:56 Fish Containing Products Allergy Mild Verified 04/27/21 14:56 [FISH CONTAINING PRODUCTS] lavender (Lavandula Allergy Verified 04/27/21 14:56 angustifolia) diatrizoate meglumine AdvReac Hives Verified 04/27/21 14:56 [From Gastrografin] diatrizoate sodium AdvReac Hives Verified 04/27/21 14:56 [From Gastrografin] seafood Allergy Uncoded 04/27/21 14:56 PFSH PFS Medical History Anxiety Asthma Depression History of gastroesophageal reflux (GERD) Urinary tract infection Surgical History History of appendectomy History of section Social History Smoking Status: Never smoker alcohol intake: never counseling provided: none substance use type: denies use curr
--- NOTE | 2021-12-15 13:42 | PC.NURSE ---
PT TO BR TO PROVIDE URINE SPECIMEN
--- NOTE | 2021-12-15 13:47 | PC.NURSE ---
ED MD AT BEDSIDE FOR EVALUATION
[2021-12-15 13:50] LABS: Microscopic, Urine URINE MICROSCOPIC (MICROSCOPIC)
[2021-12-15 14:05] LABS: Appearance,Urine CLEAR (Clear); Bilirubin,Urine Negative (Negative); Blood, Urine Negative (Negative); Color,Urine YELLOW (Yellow); Glucose,Urine (UA) Negative (Negative); Ketones,Urine TRACE (Negative); Leukocyte Esterase,Urine Negative (Negative); Nitrate,Urine Negative (Negative); Protein,Urine Negative (Negative); Specific Gravity, Urine 1.025 (1.005-1.030); Urobilinogen,Urine 0.2 EU/dl (0.2)
[2021-12-15 14:12] LABS: Urine Pregnancy, HCG Qual. Negative (Negative)
[2021-12-15 14:26] LABS: Bacteria,Urine Trace /lpf; Squamous Epithelial Cell,Urine Occasional #/hpf (0-5); WBC,Urine Occasional #/hpf (0-3)
--- NOTE | 2021-12-15 14:56 | PC.NURSE ---
ROUNDED ON PT, NO NEEDS AT THIS TIME
--- NOTE | 2021-12-15 15:10 | PC.NURSE ---
ED MD AT BEDSIDE TO REEVALUATE PT
[2021-12-15 15:33] VITALS: BP 129/54; PULSE 67; RESP 16; TEMP 37.2; O2SAT 98
== END 2021-12-15 15:35 | disposition home or self-care (01) ==
PROVIDERS: Emergency Provider Emergency Medicine; PCP Family Medicine
DX: R11.2 Nausea with vomiting, unspecified (principal); R19.7 Diarrhea, unspecified; M54.50 Low back pain, unspecified; R10.13 Epigastric pain; R06.02 Shortness of breath; K21.9 Gastro-esophageal reflux disease without esophagitis; J45.909 Unspecified asthma, uncomplicated; F32.A Depression, unspecified; F41.9 Anxiety disorder, unspecified; Z79.51 Long term (current) use of inhaled steroids; Z79.899 Other long term (current) drug therapy; Z91.040 Latex allergy status; Z91.013 Allergy to seafood; Z88.8 Allergy status to other drugs, medicaments and biological substances; Z91.018 Allergy to other foods; Z91.048 Other nonmedicinal substance allergy status
CPT/HCPCS: 81001; 81025; 99283

== ENCOUNTER → 2022-04-02 10:55 | Outpatient (CLI) | payer BC, SELFPAY ==
[2022-04-02 11:41] LABS: Basophils # 0.1 K/mm3 (0-0.2); Basophils % 1.3 % (0.1-2.0); Eosinophils # 0.1 K/mm3 (0.0-0.4); Eosinophils % 1.3 % (0.1-12.0); Hematocrit 36.1 % (37.0-47.0); Hemoglobin 11.4 g/dL (12.2-16.2); Lymphocytes # 3.2 K/mm3 (0.7-4.5); Lymphocytes % 33.9 % (10-50); Mean Corpuscular HGB Conc 31.5 g/dL (31.8-35.4); Mean Corpuscular Volume 82.6 fl (81-99); Mean Platelet Volume 8.5 fl (7.4-10.4); Monocytes # 0.3 K/mm3 (0.1-1.0); Monocytes % 3.3 % (1.7-9.3); Neutrophils # 5.7 K/mm3 (1.8-7.8); Neutrophils % 60.3 % (37.0-80.0); Platelet Count 350 K/mm3 (142-424); Red Blood Count 4.37 M/mm3 (4.20-5.40); Red Cell Distribution Width 15.3 % (11.5-17.5); White Blood Count 9.5 K/mm3 (4.8-10.8)
[2022-04-02 11:53] LABS: Hemoglobin A1C 5.5 % (4.0-6.0)
[2022-04-02 12:33] LABS: 25-OH Vitamin D, Total 46.9 ng/mL (30-100)
[2022-04-02 12:37] LABS: Chloride 106 mmol/L (98-107); Sodium 140 mmol/L (136-145)
[2022-04-02 12:38] LABS: Potassium 4.2 mmoL/L (3.5-5.1)
[2022-04-02 12:40] LABS: Anion Gap 7.2 mEq/L (5-15); Blood Urea Nitrogen 5 mg/dl (7-17); Carbon Dioxide 31 mmol/L (22.0-30.0); Estimated Glomerular Filt Rate 84 ml/min (>60); GFR (African American) 101 ML/MIN (>60); Iron 42 ug/dL (37-170); Triglycerides 70 mg/dl (30-150); VLDL Cholesterol 14 mg/dL (0-40)
[2022-04-02 12:41] LABS: Calcium 8.9 mg/dl (8.4-10.2); Cholesterol 199 mg/dl (140-200); Glucose 101 mg/dl (74-100); HDL Cholesterol 50 mg/dl (40-60)
[2022-04-02 13:07] LABS: Thyroid Stimulating Hormone 1.46 uIU/mL (0.465-4.68)
[2022-04-02 13:42] LABS: Vitamin B12 565 pg/mL (239-931)
[2022-04-02 13:51] LABS: Folate 9.71 ng/mL
[2022-04-02 18:09] LABS: Total Iron Binding Capacity 337 ug/dL (265-497)
[2022-04-02 18:34] LABS: Ferritin 9.79 ng/ml (6.24-137)
[2022-04-03 08:33] LABS: Triiodothyronine (T3) Free 3.5 pg/mL (2.0-4.4)
[2022-04-07 11:53] LABS: T4 (Thyroxine) 9.8 ug/dl (5.53-11.0)
[2022-04-08 09:24] LABS: Triiodothyronine (T3) Total 151 ng/dL (71-180)
== END ==
PROVIDERS: PCP Family Medicine Addiction Medicine; Visit Provider Family Medicine Addiction Medicine
DX: Z01.89 Encounter for other specified special examinations (principal); Z79.899 Other long term (current) drug therapy
CPT/HCPCS: 36415; 80048; 80061; 82306; 82607; 82728; 82746; 83036; 83540; 83550; 84436; 84439; 84443; 84480; 84481; 85025

== ENCOUNTER 2022-04-20 23:21 | Emergency (ER) | payer BC, SELFPAY ==
[2022-04-20 23:21] VITALS: BP 145/80; PULSE 122; RESP 23; TEMP 36.8; O2SAT 100; BMI 54.6
--- NOTE | 2022-04-20 23:23 | CT_ITS ---
PROCEDURE INFORMATION: Exam: CTA Chest With Contrast Exam date and time: 04/20/2022 11:56 PM Age: 32 years old Clinical indication: Other: Pleuritic chest pain TECHNIQUE: Imaging protocol: Computed tomographic angiography of the chest with contrast. 3D rendering (Not supervised by radiologist): MIP and/or 3D reconstructed images were created by the technologist. Total images: 370 Radiation optimization: All CT scans at this facility use at least one of these dose optimization techniques: automated exposure control; mA and/or kV adjustment per patient size (includes targeted exams where dose is matched to clinical indication); or iterative reconstruction. Contrast material: ISOVUE; Contrast volume: 75 ml; Contrast route: INTRAVENOUS (IV); REPORTING DATA: Count of CT and Cardiac NM exams in prior 12 months: This patient has received [address] and 0 known cardiac nuclear medicine studies in the 12 months prior to the current study. COMPARISON: CT ANGIO CHEST PE PROTOCOL 11/14/2020 9:22 PM FINDINGS: Pulmonary arteries: Adequate contrast opacification of the pulmonary arteries. Main pulmonary artery is normal in caliber. No acute main or segmental pulmonary emboli. Distal branch evaluation limited by technique and attenuation artifact from body habitus. Aorta: Thoracic aorta is normal in course and caliber without aneurysm or dissection. Lungs: Trachea and main bronchi are widely patent. Lungs are clear and well expanded. No airspace consolidation, pulmonary mass, or concerning infiltrate. Pleural spaces: Unremarkable. No pneumothorax. No pleural effusion. Heart: Normal heart size. No pericardial effusion. Mediastinal space: Low-attenuation soft tissue density in the anterior mediastinum compatible with residual thymus. Lymph nodes: No mediastinal or hilar lymphadenopathy. Bones/joints: No acute osseous abnormality. Mild degenerative changes thoracic spine. Soft tissues: Unremarkable. IMPRESSION: 1. No acute intrathoracic process. Specifically, no main or segmental pulmonary emboli. 2. Clear lungs. 3. Residual thymus.
--- NOTE | 2022-04-20 23:32 | HMH.EDGENADL ---
Discharge Plan Disposition Patient Disposition: Home, Self-Care Condition: Fair Prescriptions Prescriptions: New metoclopramide HCl 10 mg tablet 10 mg PO Q6H PRN (Reason: nausea and vomiting) Qty: 30 0RF No Action omeprazole 20 mg capsule,delayed release(DR/EC) 20 mg PO DAILY cetirizine [Zyrtec] 10 mg tablet 10 mg PO DAILY PRN (Reason: ALLERGIES) montelukast [Singulair] 10 mg tablet 10 mg PO DAILY albuterol sulfate 8.5 GM HFA aerosol inhaler 1 puff INHALATION NEEDED PRN (Reason: SOA) lisinopril 5 mg tablet 5 mg PO DAILY Label Comments: TAKE 1 TABLET BY MOUTH ONCE DAILY ergocalciferol (vitamin D2) 1,250 mcg (50,000 unit) capsule 50,000 unit PO DAILY Label Comments: TAKE 1 CAPSULE BY MOUTH ONCE A WEEK ferrous sulfate 324 mg (65 mg iron) tablet,delayed release (DR/EC) 324 mg PO DAILY Label Comments: TAKE 1 TABLET BY MOUTH ONCE DAILY buspirone 10 MG tablet 10 mg PO BID ondansetron 4 mg tablet,disintegrating 4 mg PO Q8H PRN (Reason: nausea and vomiting) 5 Days Qty: 15 0RF Referrals Follow up/Referrals: Oksana Pérez APRN [Primary Care Provider] - See instructions Clinical Impressions Clinical Impression: Enteritis Instructions Patient Instructions: DI for Ileus Discharge ED Provider: Nilesh Wakefield General Adult HPI General Chief complaint: Chest Pain Stated complaint: cp Time Seen by Provider: 04/20/22 23:25 History of Present Illness HPI narrative: Patient is a 32-year-old female with past medical history of dysfunctional uterine bleeding who presents with concern for chest pain and abdominal pain. She said that she started to get chest pain earlier today and it has gotten progressively worse throughout the day. She says that it is on the left side of her chest and she seems to be having some referred pain into her arm and her jaw. She also says that she has been having some epigastric pain. She says that she feels like these are connected. She also says that she has been nauseous during this time. Denies any fever or chills. She does feel little bit short of breath and her pain is worse if she takes a deep breath. She also notes that she started to get diarrhea earlier today as well. Related Data Home Medications Medication Instructions Recorded Confirmed buspirone 10 mg tablet 10 mg PO BID Anxiety 05/14/18 04/20/22 omeprazole 20 mg capsule,delayed 20 mg PO DAILY GERD 11/29/19 04/20/22 release cetirizine 10 mg tablet (Zyrtec) 10 mg PO DAILY PRN ALLERGIES 12/19/20 04/20/22 montelukast 10 mg tablet 10 mg PO DAILY ALLERGIES 12/19/20 04/20/22 (Singulair) albuterol sulfate 90 mcg/actuation 1 puff inhalation NEEDED PRN SOA 02/03/21 04/20/22 aerosol inhaler ergocalciferol (vitamin D2) 1,250 50,000 unit PO DAILY Supplement 04/20/22 04/20/22 mcg (50,000 unit) capsule ferrous sulfate 324 mg (65 mg 324 mg PO DAILY Supplement 04/20/22 04/20/22 iron) tablet,delayed release lisinopril 5 mg tablet 5 mg PO DAILY High blood pressure 04/20/22 04/20/22 Previous Rx's Medication Instructions Recorded ondansetron 4 mg disintegrating 4 mg PO Q8H PRN nausea and 12/15/21 tablet vomiting 5 days #15 tabs metoclopramide HCl 10 mg tablet 10 mg PO Q6H PRN nausea and 04/21/22 vomiting #30 tabs Allergies Allergy/AdvReac Type Severity Reaction Status Date / Time iodine [IODINE] Allergy Severe S-SWELLS-OR Verified 04/27/21 14:56 AL/THROAT latex [LATEX] Allergy Intermediate I-RASH Verified 04/27/21 14:56 Fish Containing Products Allergy Mild Verified 04/27/21 14:56 [FISH CONTAINING PRODUCTS] lavender (Lavandula Allergy Verified 04/27/21 14:56 angustifolia) diatrizoate meglumine AdvReac Hives Verified 04/27/21 14:56 [From Gastrografin] diatrizoate sodium AdvReac Hives Verified 04/27/21 14:56 [From Gastrografin] seafood Allergy Uncoded 04/27/21 14:56 PFSH PFSH Disc
[2022-04-20 23:34] LABS: Basophils # 0.1 K/mm3 (0-0.2); Basophils % 0.6 % (0.1-2.0); Eosinophils # 0.1 K/mm3 (0.0-0.4); Eosinophils % 0.5 % (0.1-12.0); Hematocrit 40.9 % (37.0-47.0); Hemoglobin 13.2 g/dL (12.2-16.2); Lymphocytes % 22.2 % (10-50); Mean Corpuscular HGB Conc 32.3 g/dL (31.8-35.4); Mean Corpuscular Hemoglobin 25.5 pg (27.0-31.2); Mean Corpuscular Volume 79.1 fl (81-99); Mean Platelet Volume 8.2 fl (7.4-10.4); Monocytes # 0.6 K/mm3 (0.1-1.0); Monocytes % 3.2 % (1.7-9.3); Neutrophils # 13.2 K/mm3 (1.8-7.8); Neutrophils % 73.6 % (37.0-80.0); Platelet Count 420 K/mm3 (142-424); Red Blood Count 5.17 M/mm3 (4.20-5.40); Red Cell Distribution Width 15.1 % (11.5-17.5); White Blood Count 17.9 K/mm3 (4.8-10.8)
[2022-04-20 23:37] LABS: Chloride 104 mmol/L (98-107); MANUAL DIFFERENTIAL MANUAL DIFFERENTIAL (MANUAL DIFF); Potassium 3.7 mmoL/L (3.5-5.1); Sodium 135 mmol/L (136-145)
[2022-04-20 23:38] VITALS: PULSE 122
[2022-04-20 23:39] LABS: Blood Urea Nitrogen 9 mg/dl (7-17); Creatinine Clearance Estimated 84 mL/min (50-200); Estimated Glomerular Filt Rate 98 ml/min (>60); GFR (African American) 118 ML/MIN (>60)
[2022-04-20 23:40] LABS: Alanine Aminotransferase 21 U/L (12-78); Albumin Level 4.2 g/dl (3.5-5.0); Albumin/Globulin Ratio 1.3 (1.1-1.8); Alkaline Phosphatase 136 U/L (38-126); Anion Gap 9.7 mEq/L (5-15); Aspartate Amino Transferase 22 U/L (14-36); Bilirubin,Total 0.5 mg/dl (0.2-1.3); Calcium 8.7 mg/dl (8.4-10.2); Carbon Dioxide 25 mmol/L (22.0-30.0); Globulin 3.3 g/dL (1.3-3.2); Glucose 124 mg/dl (74-100); INR 0.97 (0.9-1.1); Lipase 63 U/L (23-300); Prothrombin Time 10.5 seconds (10.1-12.5); Total Protein,Serum 7.5 g/dl (6.3-8.2)
[2022-04-20 23:43] LABS: HCG Qualitative, Serum Negative (Negative)
--- NOTE | 2022-04-20 23:43 | CT_ITS ---
PROCEDURE INFORMATION: Exam: CT Abdomen And Pelvis With Contrast Exam date and time: 04/20/2022 11:56 PM Age: 32 years old Clinical indication: Abdominal pain; Epigastric; Prior surgery; Surgery type: Cholecystectomy; Patient HX: C/O pain and abdominal cramping; Additional info: Epigastric pain TECHNIQUE: Imaging protocol: Computed tomography of the abdomen and pelvis with contrast. Total images: 283 Radiation optimization: All CT scans at this facility use at least one of these dose optimization techniques: automated exposure control; mA and/or kV adjustment per patient size (includes targeted exams where dose is matched to clinical indication); or iterative reconstruction. Contrast material: ISOVUE; Contrast volume: 75 ml; Contrast route: IV; REPORTING DATA: Count of CT and Cardiac NM exams in prior 12 months: This patient has received [address] and 0 known cardiac nuclear medicine studies in the 12 months prior to the current study. COMPARISON: CT ABDOMEN PELVIS WO CON 07/02/2019 10:18 PM FINDINGS: Lungs: Lung bases are clear. Heart: Normal heart size. Liver: Liver is normal in size, contour and attenuation. Focal fatty infiltration along the falciform ligament. No liver mass. Gallbladder and bile ducts: Status post cholecystectomy. No biliary ductal dilatation. Pancreas: Normal. No ductal dilation. Spleen: Normal. No splenomegaly. Adrenal glands: Normal. No mass. Kidneys and ureters: No nephrolithiasis, hydronephrosis, or renal mass. No perinephric fluid. Stomach and bowel: Stomach is mildly distended with fluid and recently ingested content. Unremarkable duodenum. Multiple thick-walled segments of small bowel throughout the mid and lower abdomen with associated mesenteric edema and trace interloop fluid. Bowel diameter approaching 3 cm implying associated ileus or partial obstruction. Fluid containing colon with scattered air-fluid levels implying diarrheal state. No active colitis. Mild scattered colonic diverticulosis. Collapsed rectum. Appendix: Normal appendix. Intraperitoneal space: Trace upper abdominal free fluid. Small quantity free pelvic fluid. No free intraperitoneal air. Vasculature: Abdominal aorta is normal in caliber. Major abdominal vessels enhance appropriately. Lymph nodes: Small bilateral inguinal lymph nodes most likely reactive/postinflammatory. Prominent mesenteric root lymph nodes most likely reactive. Urinary bladder: Collapsed bladder. Reproductive: Uterus and ovaries appear physiologic. Bones/joints: Unremarkable. No acute fracture. Soft tissues: Focal diastasis of the rectus fascia at the umbilicus with tiny fat containing umbilical hernia. Minor body wall edema. IMPRESSION: 1. Considerable circumferential bowel wall thickening referable to multiple loops of small bowel with associated mesenteric edema and interloop fluid, in keeping with acute enteritis. 2. Associated small bowel distention up to 3 cm implying ileus or partial obstruction. 3. Fluid containing colon with scattered air-fluid levels implying diarrheal state. 4. Mildly enlarged, presumed reactive, mesenteric and bilateral inguinal lymph nodes. 5. Trace upper abdominal ascites and small quantity free pelvic fluid with simple water attenuation. 6. Additional chronic and incidental findings.
--- NOTE | 2022-04-20 23:48 | PC.NURSE ---
Pt reports pain is 7/10 after morphine administration. Reporting nausea is very intense. MD notified and ordered Reglan IVP.
--- NOTE | 2022-04-20 23:52 | PC.NURSE ---
pt going to scan
[2022-04-20 23:55] LABS: Troponin I < 0.01 ng/ml (0.00-0.034)
--- NOTE | 2022-04-21 00:04 | PC.NURSE ---
pt back from scan
[2022-04-21 00:07] VITALS: BP 123/70; PULSE 106; RESP 21; O2SAT 97
--- NOTE | 2022-04-21 00:13 | PC.NURSE ---
Pt back from CT scan. Reglan administered. Pt does report a past hx with Iodine contrast as hives , however she has had contrast since that episode and done fine with it . MD is aware. Call quinn at bedside and pt educated to call staff with any changes or reaction concerns, she stated her understanding.
[2022-04-21 00:30] VITALS: BP 120/68; PULSE 92; RESP 15; O2SAT 96
--- NOTE | 2022-04-21 00:30 | ECG_ITS ---
APPROVED REPORT Exam: Resting ECG HR:126 bpm ECG Measurements Heart Rate 126 AXES NE 146 P 44 QRSd 66 QRS 52 QT 293 T 19 QTc 368 Conclusion SINUS TACHYCARDIA Late R wave progression, previously noted ABNORMAL ECG UNCONFIRMED REPORT Electronically signed by : Broderick Marino MD 04/21/2022 20:26:28
--- NOTE | 2022-04-21 00:48 | PC.NURSE ---
Rounded on pt, she is resting comfortable. Reports pain and nausea are 0/10 on CERTIFIED MEDICAL TRANSCRIPTIONIST. MD notified.
[2022-04-21 00:59] LABS: Eosinophils % 1 % (0-3); Lymphocytes % 31 % (10-50); Neutrophils % 68 % (42-76); Platelet Estimate Normal; RBC Morphology Normal; Total Cells Counted 100
[2022-04-21 01:00] VITALS: BP 123/68; PULSE 84; RESP 18; O2SAT 99
--- NOTE | 2022-04-21 01:29 | PC.NURSE ---
notified of abnormal CT A/P.
[2022-04-21 01:30] VITALS: BP 109/70; PULSE 81; RESP 12; O2SAT 100
--- NOTE | 2022-04-21 01:38 | PC.NURSE ---
Dr. Wakefield at bedside discussing results.
[2022-04-21 01:49] VITALS: BP 109/70; PULSE 87; RESP 14; TEMP 36.8; O2SAT 100
== END 2022-04-21 02:03 | disposition home or self-care (01) ==
PROVIDERS: Emergency Provider Student in an Organized Health Care Education/Training Program; PCP Family Medicine Addiction Medicine
DX: K52.9 Noninfective gastroenteritis and colitis, unspecified (principal); R07.89 Other chest pain; R10.13 Epigastric pain; Z87.42 Personal history of other diseases of the female genital tract; F41.8 Other specified anxiety disorders; J45.909 Unspecified asthma, uncomplicated; K21.9 Gastro-esophageal reflux disease without esophagitis; Z87.440 Personal history of urinary (tract) infections; Z90.49 Acquired absence of other specified parts of digestive tract
CPT/HCPCS: 71275; 74177; 80053; 83690; 84484; 84703; 85007; 85025; 85610; 86140; 93005; 96361; 96374; 96375; 99284; 99285; Q9967

== ENCOUNTER → 2022-04-23 09:31 | Outpatient (CLI) | payer BC, SELFPAY ==
[2022-04-23 09:55] LABS: Microscopic, Urine URINE MICROSCOPIC (MICROSCOPIC)
[2022-04-23 11:50] LABS: Appearance,Urine CLEAR (Clear); Bilirubin,Urine Negative (Negative); Blood, Urine Negative (Negative); Color,Urine YELLOW (Yellow); Glucose,Urine (UA) Negative (Negative); Ketones,Urine Negative (Negative); Leukocyte Esterase,Urine Negative (Negative); Nitrate,Urine Negative (Negative); Protein,Urine Negative (Negative); Urobilinogen,Urine 0.2 EU/dl (0.2)
[2022-04-23 12:42] LABS: WBC,Urine Occasional #/hpf (0-3)
== END ==
PROVIDERS: PCP Family Medicine Addiction Medicine; Visit Provider Nurse Practitioner Family
DX: K52.9 Noninfective gastroenteritis and colitis, unspecified (principal); R30.0 Dysuria; R31.9 Hematuria, unspecified
CPT/HCPCS: 81001

== ENCOUNTER 2022-05-07 11:06 | Emergency (ER) | payer BC, SELFPAY ==
[2022-05-07 11:40] VITALS: BP 125/96; PULSE 83; RESP 20; TEMP 36.9; O2SAT 97; BMI 54.1
[2022-05-07 11:53] VITALS: BMI 54.1
--- NOTE | 2022-05-07 11:53 | XR_ITS ---
FINAL REPORT CLINICAL HISTORY: PAIN COMPARISON: 10/20/2021 FINDINGS: AP, oblique, and lateral views of the left wrist were obtained. There is no acute fracture or dislocation. An ulnar negative variant is noted. The joint spaces are preserved. The soft tissues are normal. IMPRESSION: No acute osseous abnormality of the left wrist. If pain persists, MR is recommended. Reviewed, Interpreted and Dictated by Tessa Horan MD Transcribed by Kathe Prince Authenticated and [facility]
--- NOTE | 2022-05-07 12:09 | EXP.UTC ---
Discharge Plan Disposition Patient Disposition: Home, Self-Care Condition: Good Prescriptions Prescriptions: No Action omeprazole 20 mg capsule,delayed release(DR/EC) 20 mg PO DAILY cetirizine [Zyrtec] 10 mg tablet 10 mg PO DAILY PRN (Reason: ALLERGIES) montelukast [Singulair] 10 mg tablet 10 mg PO DAILY albuterol sulfate 8.5 GM HFA aerosol inhaler 1 puff INHALATION NEEDED PRN (Reason: SOA) lisinopril 5 mg tablet 5 mg PO DAILY Label Comments: TAKE 1 TABLET BY MOUTH ONCE DAILY ergocalciferol (vitamin D2) 1,250 mcg (50,000 unit) capsule 50,000 unit PO DAILY Label Comments: TAKE 1 CAPSULE BY MOUTH ONCE A WEEK ferrous sulfate 324 mg (65 mg iron) tablet,delayed release (DR/EC) 324 mg PO DAILY Label Comments: TAKE 1 TABLET BY MOUTH ONCE DAILY metoclopramide HCl 10 mg tablet 10 mg PO Q6H PRN (Reason: nausea and vomiting) Qty: 30 0RF buspirone 10 MG tablet 10 mg PO BID ondansetron 4 mg tablet,disintegrating 4 mg PO Q8H PRN (Reason: nausea and vomiting) 5 Days Qty: 15 0RF Referrals Follow up/Referrals: Oksana Pérez APRN [Primary Care Provider] - See instructions Activity Restrictions/Add. Instructions Additional Instructions/Restrictions: Wear your wrist splint for the next week or so to help with pain with movement Over the counter Motrin and/or Tylenol as directed on package for pain Follow up with your Family Doctor or Orthopedics if pain persists Return if needed Clinical Impressions Clinical Impression: Pain, wrist Qualifiers: Laterality: right Qualified Code(s): M25.531 - Pain in right wrist Instructions Patient Instructions: How To Perform RICE (Rest, Ice, Compress, Elevate), DI for Wrist Pain Discharge ED Provider: Bev Stokes [facility] [place] HPI General Stated complaint: left wrist pain, no recent accident Time Seen by Provider: 05/07/22 12:09 History of Present Illness Provider Complaint: Patient states that she hurt her wrist back in Sept States that she hasnt done anything or hurt it in the last couple of weeks that she is aware of but has been having pain on and off and this morning she felt like something was grinding in there so she came in Related Data Home Medications Medication Instructions Recorded Confirmed buspirone 10 mg tablet 10 mg PO BID Anxiety 05/14/18 04/20/22 omeprazole 20 mg capsule,delayed 20 mg PO DAILY GERD 11/29/19 04/20/22 release cetirizine 10 mg tablet (Zyrtec) 10 mg PO DAILY PRN ALLERGIES 12/19/20 04/20/22 montelukast 10 mg tablet 10 mg PO DAILY ALLERGIES 12/19/20 04/20/22 (Singulair) albuterol sulfate 90 mcg/actuation 1 puff inhalation NEEDED PRN SOA 02/03/21 04/20/22 aerosol inhaler ergocalciferol (vitamin D2) 1,250 50,000 unit PO DAILY Supplement 04/20/22 04/20/22 mcg (50,000 unit) capsule ferrous sulfate 324 mg (65 mg 324 mg PO DAILY Supplement 04/20/22 04/20/22 iron) tablet,delayed release lisinopril 5 mg tablet 5 mg PO DAILY High blood pressure 04/20/22 04/20/22 Previous Rx's Medication Instructions Recorded ondansetron 4 mg disintegrating 4 mg PO Q8H PRN nausea and 12/15/21 tablet vomiting 5 days #15 tabs metoclopramide HCl 10 mg tablet 10 mg PO Q6H PRN nausea and 04/21/22 vomiting #30 tabs Allergies Allergy/AdvReac Type Severity Reaction Status Date / Time iodine [IODINE] Allergy Severe S-SWELLS-OR Verified 04/27/21 14:56 AL/THROAT latex [LATEX] Allergy Intermediate I-RASH Verified 04/27/21 14:56 Fish Containing Products Allergy Mild Verified 04/27/21 14:56 [FISH CONTAINING PRODUCTS] lavender (Lavandula Allergy Verified 04/27/21 14:56 angustifolia) diatrizoate meglumine AdvReac Hives Verified 04/27/21 14:56 [From Gastrografin] diatrizoate sodium AdvReac Hives Verified 04/27/21 14:56 [From Gastrografin] seafood Allergy Uncoded 04/27/21 14:56 PFSH PFS Disclaimer: The information contained in this section
[2022-05-07 12:15] VITALS: BP 125/96; PULSE 83; RESP 20; TEMP 36.9; O2SAT 97
== END 2022-05-07 12:20 | disposition home or self-care (01) ==
PROVIDERS: Emergency Provider Nurse Practitioner; PCP Family Medicine Addiction Medicine
DX: M25.531 Pain in right wrist (principal)
CPT/HCPCS: 73110; 99212; G0463

== ENCOUNTER → 2022-05-11 10:48 | Outpatient (CLI) | payer BC, SELFPAY | LOC: RT 10:50 | PROVIDERS: PCP Family Medicine Addiction Medicine; Visit Provider Physician Assistant | DX: R06.09 Other forms of dyspnea (principal); R07.89 Other chest pain; R00.2 Palpitations; R94.31 Abnormal electrocardiogram [ECG] [EKG] | CPT/HCPCS: 93225 ==

== ENCOUNTER → 2022-05-20 14:04 | Outpatient (CLI) | payer BC, SELFPAY ==
--- NOTE | 2022-05-20 | CA_ITS ---
APPROVED REPORT Exam: Exercise Treadmill Technologist: Radha Aguilar, Ht: 5 ft 0 in Wt: 280 lbs BSA: 2.15 m2 HR: 88 bpm BP: 123/54 mmHg Rhythm: nsr,rightward axis,t wave inversion in lead III Medical History Medical History: HTN Medications: Omeprazole,,,,, Iron,,,,, Buspirone,,,,, Albuterol,,,,, ZYRTEC,,,,, Metoclopramide,,,,, Vit b 12,,,,, Singulair,,,,, Cardiac Risk Factors: HTN, FHX of CAD Stress Test Details Test: Issac HR Resting HR: 113 bpm Max Heart Rate (APMHR): 189.460033 bpm Max HR Achieved: 176 bpm Target HR (85% APMHR): 160.141236 bpm % of APMHR: 93.12 Recovery HR: 152 bpm BP Resting BP: 123.0/54.0 mmHg Max BP: 168.0/84.0 mmHg Recovery BP: 147.0/77.0 mmHg ECG Clinical Exercise duration: 05:26 min Highest Stage Achieved: Exercise capacity: 7.0 METs Stress ECG Conclusion WALKED 5:26 INTO STAGE II ISSAC PROTOCOL. MAX HEART RATE 176 BPM WHICH IS 93% OF PM FOR AGE. MAX BP 168/84. METS = 7.0. TEST STOPPED DUE TO SOA AND FATIGUE. STABBING RIGHT SIDED CHEST PAIN. OCCASIONAL PVC. NORMAL ST RESPONSE TO EXERCISE. NORMAL EKG S WITH MOSTLY ATYPICAL CP. GXT ONLY (NO IMAGING) Test Summary REST . . . . . . . Standing REST . . . . . . . Sitting REST 03:51 0.0 0.0 113 . 123/ 54 . . Stage 1 01:00 10.0 1.7 133 . . . . Stage 1 02:00 10.0 1.7 144 . . . . Stage 1 03:00 10.0 1.7 152 . 168/ 84 . . Stage 2 . . . . . . . Chest pain Stage 2 01:00 12.0 2.5 166 . . . . Stage 2 02:00 12.0 2.5 172 . . . . Stage 2 02:26 12.0 2.5 174 . 168/ 84 . Stop exercise at 05:26 RECOVERY 01:00 0.0 0.0 152 . . . . RECOVERY 02:00 0.0 0.0 121 . . . . RECOVERY 03:00 0.0 0.0 113 . . . . RECOVERY 04:00 0.0 0.0 108 . 147/ 77 . . RECOVERY 05:00 0.0 0.0 105 . 147/ 77 . . RECOVERY 05:21 0.0 0.0 110 . 141/ 78 . . Electronically signed by : Marcello Dempsey MD 06/07/2022 10:44:48
== END ==
LOC: RT 14:04
PROVIDERS: PCP Family Medicine Addiction Medicine; Visit Provider Physician Assistant
DX: R06.09 Other forms of dyspnea (principal); R07.89 Other chest pain; R00.2 Palpitations; I10 Essential (primary) hypertension; J45.909 Unspecified asthma, uncomplicated; K30 Functional dyspepsia; R94.31 Abnormal electrocardiogram [ECG] [EKG]
CPT/HCPCS: 93017; 93306

== ENCOUNTER → 2022-06-01 14:22 | Outpatient (CLI) | payer BC, SELFPAY ==
--- NOTE | 2022-06-01 14:23 | MR_ITS ---
FINAL REPORT CLINICAL HISTORY: strain hurt wrist in October 2021 pain came back 1.5 months ago and patient was unable to move wrist FINDINGS: Multiplanar MR imaging of the left wrist was performed without contrast. There is motion on many of the images which decreases the sensitivity of the exam. The bony structures are intact without evidence of fracture, bone bruise or marrow edema. There is no evidence of intrinsic ligament injury. The triangular fibrocartilage is intact. 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 The extensor carpi ulnaris tendon takes an unusual course just distal to the ulna. It is uncertain if this is related to positioning of the wrist. No soft tissue mass or cyst is identified. No focal abnormality is identified of the median nerve. IMPRESSION: Motion on many of the images decreases the sensitivity of the exam. Extensor carpi ulnaris tenosynovitis with an unusual appearance to the extensor carpi ulnaris tendon. This may be related to patient positioning. Reviewed, Interpreted and Dictated by Fredy Rust III, MD Transcribed by Domitila Lopes Authenticated and . [facility]
== END ==
PROVIDERS: PCP Family Medicine Addiction Medicine; Visit Provider Orthopaedic Surgery
DX: M25.532 Pain in left wrist (principal); S66.912A Strain of unspecified muscle, fascia and tendon at wrist and hand level, left hand, initial encounter
CPT/HCPCS: 73221

== ENCOUNTER → 2022-07-07 09:47 | Outpatient (CLI) | payer BC, SELFPAY ==
[2022-07-07 11:19] LABS: Iron 47 ug/dL (37-170)
[2022-07-07 11:28] LABS: Total Iron Binding Capacity 351 ug/dL (265-497)
[2022-07-08 08:21] LABS: FSH 2.4 mIU/mL (.); LH 3.7 mIU/mL (.)
== END ==
PROVIDERS: PCP Family Medicine Addiction Medicine; Visit Provider Family Medicine Addiction Medicine
DX: Z13.0 Encounter for screening for diseases of the blood and blood-forming organs and certain disorders involving the immune mechanism (principal)
CPT/HCPCS: 36415; 83001; 83002; 83540; 83550

== ENCOUNTER → 2022-07-30 12:59 | Outpatient (CLI) | payer BC, SELFPAY ==
[2022-07-30 14:21] LABS: HCG,Quantitative < 2 mIU/ml (0-5.42)
[2022-07-31 19:35] LABS: Progesterone 0.7 ng/mL (.)
== END ==
PROVIDERS: PCP Family Medicine Addiction Medicine; Visit Provider Nurse Practitioner Obstetrics & Gynecology
DX: N92.6 Irregular menstruation, unspecified (principal); Z32.00 Encounter for pregnancy test, result unknown
CPT/HCPCS: 36415; 84144; 84702

== ENCOUNTER 2022-09-12 09:29 | Emergency (ER) | payer BC, SELFPAY ==
[2022-09-12 09:40] VITALS: BP 148/69; PULSE 69; RESP 20; TEMP 36.9; O2SAT 98; BMI 54.2
--- NOTE | 2022-09-12 09:57 | EXP.UTC ---
Discharge Plan Disposition Patient Disposition: Home, Self-Care Condition: Good Prescriptions Prescriptions: New methylprednisolone [Medrol (Faheem)] 4 mg tablets,dose pack See Rx Instructions .Route .COMPLEX 6 Days Qty: 21 0RF Rx Instructions: taper pack; amoxicillin-pot clavulanate 875-125 mg Tablet 1 tab PO Q12H 7 Days Qty: 14 0RF No Action omeprazole 20 mg capsule,delayed release(DR/EC) 20 mg PO DAILY cetirizine [Zyrtec] 10 mg tablet 10 mg PO DAILY PRN (Reason: ALLERGIES) montelukast [Singulair] 10 mg tablet 10 mg PO DAILY diclofenac sodium [Voltaren Arthritis Pain] 1 % gel 2 g topical TID Qty: 100 3RF Rx Instructions: apply to single elbow, wrist or hand; for hand includes palm/fingers/back of hand albuterol sulfate 8.5 GM HFA aerosol inhaler 1 puff INHALATION NEEDED PRN (Reason: SOA) ergocalciferol (vitamin D2) 1,250 mcg (50,000 unit) capsule 50,000 unit PO DAILY Patient Comments: TAKE 1 CAPSULE BY MOUTH ONCE A WEEK ferrous sulfate 324 mg (65 mg iron) tablet,delayed release (DR/EC) 324 mg PO DAILY Patient Comments: TAKE 1 TABLET BY MOUTH ONCE DAILY metoclopramide HCl 10 mg tablet 10 mg PO Q6H PRN (Reason: nausea and vomiting) Qty: 30 0RF buspirone 10 MG tablet 10 mg PO BID Referrals Follow up/Referrals: Oksana Pérez APRN [Primary Care Provider] - See instructions Activity Restrictions/Add. Instructions Additional Instructions/Restrictions: *Monitor Temp, Over the counter Motrin or Tylenol as directed/as needed Tylenol every 4 hours and Motrin every 6 hours (as long as your family doctor has told you that you can take it) for fever or pain. and straight to ER if unable to lower temp less than 101.0 after medication given *Warm salt water gargles may help to soothe the throat *Throat Lozenges? *Warm fluids like tea with honey may help to soothe the throat? *Sleep elevated *Humidifier/Vaporizer Your throat swab was sent for culture. Those results are typically sent to your primary care. Be sure to follow up in 2-3 days with your family doctor/primary care physician if no improvement so they can review those result and treat if necessary. If you don?t have a primary care doctor, I recommend you get one but in the mean time, you will have to return to a walk in clinic Follow up IMMEDIATELY for new or worsening symptoms or no Noticeable improvement over the next 48-72 hours. 911 for difficulty breathing or swallowing You were tested for today for Upper Respiratory Panel with COVID19 your test result should be back in the next 24hrs You may check your results on the [facility] Portal Clinical Impressions Clinical Impression: Sinusitis Qualifiers: Sinusitis location: unspecified location Chronicity: unspecified Qualified Code(s): J32.9 - Chronic sinusitis, unspecified Stand Alone Forms Stand Alone Forms: Work/School Release Instructions Patient Instructions: Sinusitis, DI for Sinusitis [place]charge ED Provider[place] Bev [place] [facility] [place] General Stated complaint: chest congestion, cough, runny nose, fever/chills Mode of Arrival: Ambulatory Source of Information: Patient Limitations: No Limitations Time Seen by Provider: 09/12/22 09:57 Description of Symptoms (Recalled from Triage Doc. by RN): PATIENT C/O CHEST CONGESTION, EAR PAIN, HEADACHE, BODY ACHES, FEVER, CHILLS, DIARRHEA, AND LOSS OF TASTE AND SMELL X 3 DAYS HEENT Symptoms (Recalled from RN notes): Yes Resp Symptoms (Recalled from RN notes): Yes Skin Symptoms (Recalled from RN notes): No MS Symptoms (Recalled from RN notes): No Functional Status (Recalled from RN notes): WNL History of Present Illness Provider Complaint: Patient states that she has been having sinus pain and pressure, chest congestion, bilateral ear pain, scratchy throat, cough, body aches chills and diarrhea States that she hasnt really been a
[2022-09-12 10:06] LABS: UTC Strep Screen (Rapid) Negative (Negative)
[2022-09-12 10:07] LABS: UTC Influenza A Antigen Negative (Negative); UTC Influenza B Antigen Negative (Negative)
[2022-09-12 10:17] VITALS: BP 148/69; PULSE 69; RESP 20; TEMP 36.9; O2SAT 98
== END 2022-09-12 10:18 | disposition home or self-care (01) ==
PROVIDERS: Emergency Provider Nurse Practitioner; PCP Family Medicine Addiction Medicine
DX: U07.1 COVID-19 (principal); J01.90 Acute sinusitis, unspecified; R19.7 Diarrhea, unspecified; H92.03 Otalgia, bilateral; J45.909 Unspecified asthma, uncomplicated; K21.9 Gastro-esophageal reflux disease without esophagitis; F41.9 Anxiety disorder, unspecified; F32.A Depression, unspecified
CPT/HCPCS: 87804; 87880; 99212; 99214; G0463

== ENCOUNTER 2022-12-01 08:25 | Emergency (ER) | payer OTHER, SELFPAY ==
[2022-12-01] VITALS (8 sets, daily range): BP systolic 96–142; BP diastolic 60–77; PULSE 75–100; RESP 17–20; TEMP 36.5–36.6; O2SAT 97–100; BMI 51.0
--- NOTE | 2022-12-01 08:25 | PC.NURSE ---
Dr. Sheehan at BS for patient eval
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
--- NOTE | 2022-12-01 08:45 | ECG_ITS ---
APPROVED REPORT Exam: Resting ECG HR:86 bpm ECG Measurements Heart Rate 86 AXES AL 134 P 56 QRSd 86 QRS 70 QT 353 T 38 QTc 397 Conclusion SINUS RHYTHM WITH SINUS ARRHYTHMIA NORMAL ECG UNCONFIRMED REPORT Electronically signed by : Broderick Marino MD 12/02/2022 21:28:52
[2022-12-01 09:04] LABS: Chloride 107 mmol/L (98-107); Potassium 3.8 mmoL/L (3.5-5.1); Sodium 138 mmol/L (136-145)
[2022-12-01 09:06] LABS: Alanine Aminotransferase 24 U/L (12-78); Aspartate Amino Transferase 27 U/L (14-36); Blood Urea Nitrogen 8 mg/dl (7-17); Creatinine Clearance Estimated 88 mL/min (50-200); Estimated Glomerular Filt Rate 98 ml/min (>60); GFR (African American) 118 ML/MIN (>60)
[2022-12-01 09:07] LABS: Albumin Level 4.2 g/dl (3.5-5.0); Albumin/Globulin Ratio 1.3 (1.1-1.8); Alkaline Phosphatase 115 U/L (38-126); Anion Gap 6.8 mEq/L (5-15); Bilirubin,Total 0.2 mg/dl (0.2-1.3); Calcium 8.6 mg/dl (8.4-10.2); Carbon Dioxide 28 mmol/L (22.0-30.0); Globulin 3.2 g/dL (1.3-3.2); Glucose 104 mg/dl (74-100); Total Protein,Serum 7.4 g/dl (6.3-8.2)
--- NOTE | 2022-12-01 09:13 | PC.NURSE ---
PT in Radiology
[2022-12-01 09:17] LABS: Basophils % 0.4 % (0.1-2.0); Eosinophils # 0.1 K/mm3 (0.0-0.4); Eosinophils % 0.6 % (0.1-12.0); Hematocrit 34.5 % (37.0-47.0); Hemoglobin 11.8 g/dL (12.2-16.2); Lymphocytes # 2.8 K/mm3 (0.7-4.5); Lymphocytes % 32.1 % (10-50); Mean Corpuscular HGB Conc 34.1 g/dL (31.8-35.4); Mean Corpuscular Hemoglobin 26.8 pg (27.0-31.2); Mean Corpuscular Volume 78.6 fl (81-99); Mean Platelet Volume 8.6 fl (7.4-10.4); Monocytes # 0.3 K/mm3 (0.1-1.0); Monocytes % 3.8 % (1.7-9.3); Neutrophils # 5.5 K/mm3 (1.8-7.8); Neutrophils % 63.1 % (37.0-80.0); Platelet Count 304 K/mm3 (142-424); Red Blood Count 4.39 M/mm3 (4.20-5.40); Red Cell Distribution Width 15.4 % (11.5-17.5); White Blood Count 8.8 K/mm3 (4.8-10.8)
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
--- NOTE | 2022-12-01 10:10 | PC.NURSE ---
rounded on pt, pt requesting medication for pain. Notified ER MD, verbal orders obtained. Pt medicated per APR, pt states no other needs at this time.
--- NOTE | 2022-12-01 10:56 | PC.NURSE ---
ER MD Sheehan at
== END 2022-12-01 11:15 | disposition home or self-care (01) ==
PROVIDERS: Emergency Provider Emergency Medicine
DX: R07.9 Chest pain, unspecified (principal); M54.9 Dorsalgia, unspecified; M79.641 Pain in right hand; V47.5XXA Car driver injured in collision with fixed or stationary object in traffic accident, initial encounter
CPT/HCPCS: 71275; 72128; 73090; 73130; 80053; 85025; 93005; 99285; Q9967

== ENCOUNTER 2022-12-02 15:14 | Emergency (ER) | payer OTHER, SELFPAY ==
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
[2022-12-02 15:25] VITALS: BP 124/80; PULSE 80; RESP 20; TEMP 36.8; O2SAT 100; BMI 50.6
[2022-12-02 15:36] LABS: UTC Pregnancy Test, Urine Negative (Negative)
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
[2022-12-02 16:21] VITALS: BP 124/80; PULSE 80; RESP 20; TEMP 36.8; O2SAT 100
== END 2022-12-02 16:30 | disposition home or self-care (01) ==
PROVIDERS: Emergency Provider Nurse Practitioner Family; PCP Family Medicine Addiction Medicine
DX: M25.562 Pain in left knee (principal); M25.552 Pain in left hip; J45.909 Unspecified asthma, uncomplicated; K21.9 Gastro-esophageal reflux disease without esophagitis; V49.40XA Driver injured in collision with unspecified motor vehicles in traffic accident, initial encounter; Y92.410 Unspecified street and highway as the place of occurrence of the external cause
CPT/HCPCS: 73502; 73562; 81025; 99212; 99214; G0463

== ENCOUNTER 2022-12-28 08:14 | Emergency (ER) | payer BC, SELFPAY ==
[2022-12-28 08:25] VITALS: BP 122/83; PULSE 79; RESP 22; TEMP 36.8; O2SAT 98; BMI 49.5
--- NOTE | 2022-12-28 08:35 | EXP.UTC ---
Discharge Plan Disposition Patient Disposition: Home, Self-Care Condition: Good Prescriptions Prescriptions: New meclizine 25 mg tablet 25 mg PO TID PRN (Reason: dizziness) Qty: 20 0RF No Action omeprazole 20 mg capsule,delayed release(DR/EC) 20 mg PO DAILY cetirizine [Zyrtec] 10 mg tablet 10 mg PO DAILY PRN (Reason: ALLERGIES) montelukast [Singulair] 10 mg tablet 10 mg PO DAILY erythromycin 250 mg tablet,delayed release (DR/EC) 250 mg PO DAILY Patient Comments: TAKE 1 TABLET BY MOUTH THREE TIMES DAILY ferrous sulfate [FeroSul] 325 mg (65 mg iron) tablet 325 mg PO DAILY Patient Comments: TAKE 1 TABLET BY MOUTH ONCE DAILY buspirone 10 MG tablet 10 mg PO BID cyclobenzaprine 10 mg Tablet 10 mg PO BID PRN (Reason: Muscle Spasm) Qty: 20 0RF ibuprofen [IBU] 800 mg tablet 800 mg PO Q8HP PRN (Reason: Moderate Pain) Qty: 30 0RF Referrals Follow up/Referrals: Oksana Pérez APRN [Primary Care Provider] - See instructions Activity Restrictions/Add. Instructions Additional Instructions/Restrictions: Take meclizine as prescribed to help with dizziness/vertigo Eat light for the next couple of days Make sure that you are drinking plenty of fluids Follow up with your Family Doctor tomorrow if no improvement or any worsening of symptoms Straight to the ER if any life threatening symptoms Clinical Impressions Clinical Impression: Vertigo, Nausea Instructions Patient Instructions: DI for Vertigo, DI for Nausea -- Adult, Meclizine Discharge ED Provider: Bev Stokes [facility] General Stated complaint: STOMACH CRAMPS AND LIGHT HEADED Mode of Arrival: Ambulatory Source of Information: Patient Limitations: No Limitations Time Seen by Provider: 12/28/22 08:35 Description of Symptoms (Recalled from Triage Doc. by RN): PATIENT C/O STOMACH CRAMPS, NAUSEA, AND FEELING LIGHT-HEADED THAT STARTED LAST NIGHT HEENT Symptoms (Recalled from RN notes): Yes Resp Symptoms (Recalled from RN notes): No Skin Symptoms (Recalled from RN notes): No MS Symptoms (Recalled from RN notes): No Functional Status (Recalled from RN notes): WNL History of Present Illness Provider Complaint: Patient states that she has a hx of vertigo States that last night she started having some nausea and feeling light headed so she laid down and when she got up she felt like she was unsteady and felt like she was spinning Statse that this morning she had some stomach cramps like she was going to get diarrhea but no longer having the feeling that she was spinning/floor moving and no longer feeling light headed but still having some nausea Related Data Home Medications Medication Instructions Recorded Confirmed buspirone 10 mg tablet 10 mg PO BID Anxiety 05/14/18 12/28/22 omeprazole 20 mg capsule,delayed 20 mg PO DAILY GERD 11/29/19 12/28/22 release cetirizine 10 mg tablet (Zyrtec) 10 mg PO DAILY PRN ALLERGIES 12/19/20 12/28/22 montelukast 10 mg tablet 10 mg PO DAILY ALLERGIES 12/19/20 12/28/22 (Singulair) erythromycin 250 mg tablet,delayed 250 mg PO DAILY 12/28/22 12/28/22 release ferrous sulfate 325 mg (65 mg 325 mg PO DAILY 12/28/22 12/28/22 iron) tablet (FeroSul) Previous Rx's Medication Instructions Recorded cyclobenzaprine 10 mg tablet 10 mg PO BID PRN Muscle Spasm #20 12/02/22 tabs ibuprofen 800 mg tablet (IBU) 800 mg PO Q8HP PRN Moderate Pain 12/02/22 #30 tabs meclizine 25 mg tablet 25 mg PO TID PRN dizziness #20 tabs 12/28/22 Allergies Allergy/AdvReac Type Severity Reaction Status Date / Time iodine [IODINE] Allergy Severe S-SWELLS-OR Verified 12/16/22 10:07 AL/THROAT latex [LATEX] Allergy Intermediate I-RASH Verified 12/16/22 10:07 Fish Containing Products Allergy Mild Verified 12/16/22 10:07 [FISH CONTAINING PRODUCTS] lavender (Lavandula Allergy Verified 12/16/22 10:07 angustifolia) prucalopride [From Motegrity] Allergy Verified 12/16
[2022-12-28 08:53] VITALS: BP 122/83; PULSE 79; RESP 22; TEMP 36.8; O2SAT 98
== END 2022-12-28 08:59 | disposition home or self-care (01) ==
PROVIDERS: Emergency Provider Nurse Practitioner; PCP Family Medicine Addiction Medicine
DX: R42 Dizziness and giddiness (principal); R11.0 Nausea; R10.819 Abdominal tenderness, unspecified site; K21.9 Gastro-esophageal reflux disease without esophagitis
CPT/HCPCS: 99212; 99214; G0463

== ENCOUNTER → 2023-01-20 09:41 | Outpatient (CLI) | payer OTHER, SELFPAY ==
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
== END ==
PROVIDERS: PCP Family Medicine Addiction Medicine; Visit Provider Orthopaedic Surgery
DX: M23.92 Unspecified internal derangement of left knee (principal)
CPT/HCPCS: 73721

== ENCOUNTER 2023-02-09 15:15 | Outpatient (CLI) | payer BC, SELFPAY ==
[2023-02-14 13:48] LABS: Pancreatic Elastase, Fecal 62 (>200)
== END 2023-02-09 23:59 ==
LOC: LAB 15:17
PROVIDERS: PCP Family Medicine Addiction Medicine; Visit Provider Nurse Practitioner Family
DX: K30 Functional dyspepsia (principal); K58.9 Irritable bowel syndrome, unspecified; K21.9 Gastro-esophageal reflux disease without esophagitis; R11.0 Nausea; R14.0 Abdominal distension (gaseous)
CPT/HCPCS: 82656

== ENCOUNTER 2023-05-02 19:11 | Outpatient (CLI) | payer BC, SELFPAY ==
[2023-05-02 18:08] LABS: Coronavirus 19, PCR Not Detected (NotDetected); Influenza A, PCR Not Detected (NotDetected); Influenza B, PCR Not Detected (NotDetected)
== END 2023-05-02 23:59 ==
LOC: LAB.DROPOF 19:11
PROVIDERS: PCP Student in an Organized Health Care Education/Training Program; Visit Provider Student in an Organized Health Care Education/Training Program
DX: J02.9 Acute pharyngitis, unspecified (principal)
CPT/HCPCS: 87070; 87636

== ENCOUNTER 2023-09-20 15:45 | Emergency (ER) | payer BC, SELFPAY ==
[2023-09-20 15:46] VITALS: BP 153/109; PULSE 83; RESP 18; TEMP 36.8; O2SAT 100; BMI 52.5
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
--- NOTE | 2023-09-20 16:32 | PC.NURSE ---
XR AT BEDSIDE
[2023-09-20] MEDS: ACETAMINOPHEN 500MG TAB 1000 MG PO (17:08)
[2023-09-20] MEDS: IBUPROFEN 400 MG TABLET 800 MG PO (17:09)
[2023-09-20 17:16] LABS: Microscopic, Urine URINE MICROSCOPIC (MICROSCOPIC)
[2023-09-20 17:28] LABS: Appearance,Urine Clear (Clear); Bilirubin,Urine Negative (Negative); Blood, Urine Negative (Negative); Color,Urine Yellow (Yellow); Glucose,Urine (UA) Negative (Negative); Ketones,Urine Negative (Negative); Leukocyte Esterase,Urine Negative (Negative); Nitrate,Urine Negative (Negative); Protein,Urine Negative (Negative); Specific Gravity, Urine <= 1.005 (1.005-1.030); Urobilinogen,Urine 0.2 EU/dl (0.2)
[2023-09-20 17:35] VITALS: BP 132/87; PULSE 65; RESP 18; TEMP 36.7; O2SAT 100
[2023-09-20 17:40] LABS: Bacteria,Urine 3+ /lpf; RBC,Urine Occasional #/hpf (0-3); Squamous Epithelial Cell,Urine Occasional #/hpf (0-5); WBC,Urine Occasional #/hpf (0-3)
== END 2023-09-20 17:35 | disposition home or self-care (01) ==
PROVIDERS: Emergency Provider Student in an Organized Health Care Education/Training Program; PCP Family Medicine Addiction Medicine
DX: S60.222A Contusion of left hand, initial encounter (principal); G58.9 Mononeuropathy, unspecified; R30.0 Dysuria; W23.0XXA Caught, crushed, jammed, or pinched between moving objects, initial encounter
CPT/HCPCS: 73130; 81001; 87086; 99283

== ENCOUNTER 2023-12-19 13:09 | Emergency (ER) | payer BC, SELFPAY ==
[2023-12-19] VITALS (12 sets, daily range): BP systolic 97–161; BP diastolic 62–88; PULSE 65–110; RESP 14–21; TEMP 36.6; O2SAT 97–100; BMI 53.6
--- NOTE | 2023-12-19 13:14 | ECG_ITS ---
APPROVED REPORT Exam: Resting ECG HR:68 bpm ECG Measurements Heart Rate 68 AXES WI 129 P 40 QRSd 91 QRS 43 QT 378 T 15 QTc 396 Conclusion SINUS RHYTHM WITH SINUS ARRHYTHMIA LOW QRS VOLTAGE IN PRECORDIAL LEADS [QRS DEFLECTION < 1.0 mV IN CHEST LEADS] BORDERLINE ECG Electronically signed by : NEMO HUI, 12/19/2023 16:57:00
--- NOTE | 2023-12-19 13:25 | ED_ITS ---
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 Dioxide 27, Anion Gap 10.2, BUN 11, Creatinine 0.70, Estimated Creat Clear 83, Estimated GFR 97, Est GFR ( Amer) 117, Glucose 87, Calcium 8.7, Magnesium 1.8, Total Bilirubin 0.3, AST 21, ALT 19, Alkaline Phosphatase 105, Troponin I < 0.01, NT-Pro-B Natriuret Pep 25.8, Total Protein 6.9, Albumin 3.8, Globulin 3.1, Albumin/Globulin Ratio 1.2, Lipase 62, TSH 2.52, Thyroxine (T4) 8.3, T3 Uptake 33, Serum HCG, Qual Negative, HIV 1&2 Antibody Rapid Nonreactive 12/19/23 15:36: Troponin I < 0.01 Response Orders (Tests/Meds): ED MEDICATIONS Discontinued Medications Generic Name Dose Route Start Last Admin Trade Name Azamq PRN Reason Stop Dose Admin Acetaminophen 1,000 mg 12/19/23 13:26 12/19/23 13:49 Acetaminophen 500mg Tab PO 12/19/23 13:27 1,000 mg ONCE ONE Administration Belladonna Alkaloids 60 ml 12/19/23 13:33 12/19/23 13:49 Belladonna Alkaloids 60 Ml Ml PO 12/19/23 13:34 60 ml ONCE ONE Administration Diphenhydramine HCl 50 mg 12/19/23 15:51 12/19/23 16:00 Diphenhydramine 50mg/Ml Vial IV 12/19/23 15:52 50 mg ONCE ONE Administration Sodium Chloride 1,000 mls @ 999 mls/hr 12/19/23 15:51 12/19/23 16:00 Sod Chlor 0.9% 1000ml Bag IV 12/19/23 16:51 999 mls/hr .Q1H1M ONE Administration Iopamidol 70 ml 12/19/23 16:42 12/19/23 16:53 Iopamidol-370 (76%);100ml Bottle IV 12/19/23 16:43 70 ml ONCE ONE Administration Ketorolac Tromethamine 15 mg 12/19/23 13:26 12/19/23 13:49 Ketorolac 30mg/Ml Vial IV 12/19/23 13:27 15 mg ONCE ONE Administration Methylprednisolone Sodium Succinate 40 mg 12/19/23 15:51 12/19/23 16:00 Methylprednisolone Sod Succ 40mg Vial IV 12/19/23 15:52 40 mg ONCE ONE Administration Ondansetron HCl 4 mg 12/19/23 13:54 12/19/23 13:55 Ondansetron 4mg/2ml Vial IV 12/19/23 13:55 4 mg ONCE ONE Administration Sodium Chloride 10 ml 12/19/23 16:42 12/19/23 16:53 Sodium Chloride 0.9% 10ml Syr (Rad Only) IV 12/19/23 16:43 10 ml ONCE ONE Administration Sodium Chloride 50 ml 12/19/23 16:42 12/19/23 16:53 0.9 % Sodium Chloride 50 Ml Vial IV 12/19/23 16:43 50 ml ONCE ONE Administration ORDERS Category Date Time Status CT angio chest PE protocol Stat Cat Scan 12/19/23 15:38 Completed Chest XR -- portable [XR chest portable] Stat Exams 12/19/23 13:27 Completed BNP [NT Pro Brain Natriuretic Pep.] Stat Lab 12/19/23 13:40 Completed CBC w/Auto Diff [Complete Blood Count Auto Diff] Stat Lab 12/19/23 13:40 Completed CMP [Comprehensive Metabolic Panel] Stat Lab 12/19/23 13:40 Completed D-Dimer Stat Lab 12/19/23 13:40 Completed HCG Qualitative, Serum Stat Lab 12/19/23 13:40 Completed HIV (1&2) Antibody Rapid Stat Lab 12/19/23 13:40 Completed Hep C Ab with Reflex to RNA Stat Lab 12/19/23 13:40 Received INR [Prothrombin Time INR] Stat Lab 12/19/23 13:40 Completed Lipase Stat Lab 12/19/23 13:40 Completed Magnesium Stat Lab 12/19/23 13:40 Completed Thyroid Panel Stat Lab 12/19/23 13:40 Results Trop I [Troponin I] Stat Lab 12/19/23 13:40 Completed Troponin I Q3H Lab 12/19/23 15:36 Completed Troponin I Q3H Lab 12/19/23 19:30 Ordered UA [Urinalysis and Microscopic] Stat Lab 12/19/23 16:08 Ordered UDS [Drug Screen,Urine] Stat Lab 12/19/23 16:08 Ordered ECG Data Tracing #3: Attestation: I reviewed this ECG and interpreted as documented below: ECG Narrative: Independently interpreted by myself at 1606. Sinus tachycardia with a ventricular to [address] changes concerning for ischemia. ECG initial impression date: 12/19/23 ECG initial impression time: 16:06
--- NOTE | 2023-12-19 13:27 | XR_ITS ---
FINAL REPORT TECHNIQUE: Single view chest CLINICAL HISTORY: Chest pain FINDINGS: A single view of the chest was obtained. The heart and mediastinum are within normal limits. The lungs are clear. There is no pneumothorax. Osseous structures are unremarkable. IMPRESSION: No acute cardiopulmonary process. Reviewed, Interpreted and Dictated by Fredy Rust III, MD Transcribed by Mariann Varela Authenticated and [facility]
--- NOTE | 2023-12-19 13:44 | PC.NURSE ---
XR AT BEDSIDE
[2023-12-19] MEDS: BELLADONNA ALKALOIDS 60 ML ML PO (13:49)
[2023-12-19] MEDS: ACETAMINOPHEN 500MG TAB 1000 MG PO (13:49)
[2023-12-19] MEDS: KETOROLAC 30MG/ML VIAL 15 MG IV (13:49)
[2023-12-19] MEDS: ONDANSETRON 4MG/2ML VIAL 4 MG IV (13:55)
[2023-12-19 13:59] LABS: INR 0.91 (0.9-1.1); Prothrombin Time 10.3 seconds (10.1-12.5)
[2023-12-19 14:10] LABS: Basophils # 0.1 K/mm3 (0-0.2); Basophils % 0.6 % (0.1-2.0); Eosinophils # 0.1 K/mm3 (0.0-0.4); Eosinophils % 0.6 % (0.1-12.0); Hematocrit 35.1 % (37.0-47.0); Hemoglobin 11.4 g/dL (12.2-16.2); Lymphocytes # 3.5 K/mm3 (0.7-4.5); Lymphocytes % 32.4 % (10-50); Mean Corpuscular HGB Conc 32.6 g/dL (31.8-35.4); Mean Corpuscular Hemoglobin 25.8 pg (27.0-31.2); Mean Corpuscular Volume 78.9 fl (81-99); Mean Platelet Volume 8.3 fl (7.4-10.4); Monocytes # 0.5 K/mm3 (0.1-1.0); Monocytes % 4.6 % (1.7-9.3); Neutrophils # 6.6 K/mm3 (1.8-7.8); Neutrophils % 61.9 % (37.0-80.0); Platelet Count 307 K/mm3 (142-424); Red Blood Count 4.44 M/mm3 (4.20-5.40); Red Cell Distribution Width 14.9 % (11.5-17.5); White Blood Count 10.7 K/mm3 (4.8-10.8)
[2023-12-19 14:19] LABS: Alanine Aminotransferase 19 U/L (12-78); Albumin Level 3.8 g/dl (3.5-5.0); Albumin/Globulin Ratio 1.2 (1.1-1.8); Alkaline Phosphatase 105 U/L (38-126); Anion Gap 10.2 mEq/L (5-15); Aspartate Amino Transferase 21 U/L (14-36); Bilirubin,Total 0.3 mg/dl (0.2-1.3); Blood Urea Nitrogen 11 mg/dl (7-17); Calcium 8.7 mg/dl (8.4-10.2); Carbon Dioxide 27 mmol/L (22.0-30.0); Chloride 107 mmol/L (98-107); Creatinine Clearance Estimated 83 mL/min (50-200); Estimated Glomerular Filt Rate 97 ml/min (>60); GFR (African American) 117 ML/MIN (>60); Globulin 3.1 g/dL (1.3-3.2); Glucose 87 mg/dl (74-100); Magnesium 1.8 mg/dl (1.6-2.3); Potassium 4.2 mmoL/L (3.5-5.1); Sodium 140 mmol/L (136-145); Total Protein,Serum 6.9 g/dl (6.3-8.2)
--- NOTE | 2023-12-19 14:22 | ECG_ITS ---
APPROVED REPORT Exam: Resting ECG HR:75 bpm ECG Measurements Heart Rate 75 AXES QRSd 85 QRS 46 QT 365 T 12 QTc 393 Conclusion Sinus rhythm ABNORMAL RHYTHM ECG Electronically signed by : NEMO HUI, 12/19/2023 16:55:56
[2023-12-19 14:27] LABS: HIV (1&2) Antibody Rapid NONREACTIVE (NONREACTIVE)
[2023-12-19 14:30] LABS: NT Pro Brain Natriuretic Pep. 25.8 pg/mL (0-125)
[2023-12-19 14:31] LABS: Troponin I < 0.01 ng/ml (0.00-0.034)
[2023-12-19 14:42] LABS: HCG Qualitative, Serum Negative (Negative)
[2023-12-19 14:49] LABS: D-Dimer 0.64 ug/mL (0.0-0.5)
[2023-12-19 14:52] LABS: Lipase 62 U/L (23-300)
--- NOTE | 2023-12-19 15:38 | CT_ITS ---
PROCEDURE INFORMATION: Exam: CTA Chest With Contrast Exam date and time: 12/19/2023 4:38 PM Age: 33 years old Clinical indication: Pain; Other: Cp; Additional info: Chest pain TECHNIQUE: Imaging protocol: Computed tomographic angiography of the chest with contrast. Exam focused on the arteries. 3D rendering (Not supervised by radiologist): MIP and/or 3D reconstructed images were created by the technologist. Radiation optimization: All CT scans at this facility use at least one of these dose optimization techniques: automated exposure control; mA and/or kV adjustment per patient size (includes targeted exams where dose is matched to clinical indication); or iterative reconstruction. Contrast material: ISOVUE 370; Contrast volume: 70 ml; Contrast route: INTRAVENOUS (IV); COMPARISON: 1. CT ANGIO CHEST PE PROTOCOL 11/14/2020 9:[address] ABDOMEN PELVIS W CON 04/20/2022 11:56 PM FINDINGS: Pulmonary arteries: There is fair opacification of the pulmonary arterial tree. No central pulmonary arterial filling defect is seen. Aorta: Unremarkable. No aortic aneurysm. No aortic dissection. Other arteries: Subsegmental vessels are not well evaluated due to technical factors. Lungs: There is basilar predominant ground-glass opacity which could reflect air trapping or infection. Pleural spaces: Unremarkable. No pneumothorax. No pleural effusion. Heart: Unremarkable. No cardiomegaly. No pericardial effusion. Lymph nodes: Unremarkable. No enlarged lymph nodes. Gallbladder and biliary ducts: The patient is status post cholecystectomy. Kidneys: Nonobstructing left-sided intrarenal calculi are noted. Bones/joints: Unremarkable. No acute fracture. Soft tissues: Unremarkable. Other findings: Motion artifact mildly limits evaluation. IMPRESSION: 1. No central pulmonary arterial filling defect is seen. Subsegmental vessels are not well evaluated due to motion and technical factors. 2. There is basilar predominant ground-glass opacity which could reflect air trapping or infection.
--- NOTE | 2023-12-19 15:38 | PC.NURSE ---
REPEAT TROP COLLECTED AT THIS TIME. PT C/O BURNING UP ORAL TEMP 98.8. PA-C NOTIFIED TO REEVALUATE PT
--- NOTE | 2023-12-19 15:51 | HMH.ITSTN ---
advised iodine allergy; will pre medicate and scan at 4:30
[2023-12-19] MEDS: METHYLPREDNISOLONE SOD SUCC 40MG VIAL 40 MG IV (16:00)
[2023-12-19] MEDS: diphenhydrAMINE 50MG/ML VIAL 50 MG IV (16:00)
[2023-12-19] MEDS: 0.9 % SODIUM CHLORIDE 1000ML 1,000 ML 999 ML IV (16:00)
--- NOTE | 2023-12-19 16:05 | ECG_ITS ---
APPROVED REPORT Exam: Resting ECG HR:137 bpm ECG Measurements Heart Rate 137 AXES NC 130 P 52 QRSd 80 QRS 81 QT 316 T 16 QTc 396 Conclusion SINUS TACHYCARDIA LOW QRS VOLTAGE IN PRECORDIAL LEADS [QRS DEFLECTION < 1.0 mV IN CHEST LEADS] ABNORMAL RHYTHM ECG Electronically signed by : HAN NAIK, 12/20/2023 00:07:12
[2023-12-19 16:10] LABS: Troponin I < 0.01 ng/ml (0.00-0.034)
--- NOTE | 2023-12-19 16:36 | PC.NURSE ---
PT TO CT
--- NOTE | 2023-12-19 16:38 | PC.NURSE ---
pt transported to radiology via wheelchair
--- NOTE | 2023-12-19 16:39 | PC.NURSE ---
jose guadalupe is speaking to dr mallory regarding pt
--- NOTE | 2023-12-19 16:49 | PC.NURSE ---
Patient is back in the room from CT.
[2023-12-19] MEDS: 0.9 % SODIUM CHLORIDE 50 ML VIAL IV (16:53)
[2023-12-19] MEDS: SODIUM CHLORIDE 0.9% 10ML SYR (RAD ONLY) 10 ML IV (16:53)
[2023-12-19] MEDS: IOPAMIDOL-370 (76%);100ML BOTTLE 70 ML IV (16:53)
[2023-12-19 16:54] LABS: Free Thyroxine Index 2.7 ug/dL (5.93-13.13); T4 (Thyroxine) 8.3 ug/dl (5.53-11.0); Triiodothryronine (T3) Uptake 33 % (23.5-40.5)
[2023-12-19 17:07] LABS: Thyroid Stimulating Hormone 2.52 uIU/mL (0.465-4.68)
[2023-12-19 17:32] LABS: Microscopic, Urine URINE MICROSCOPIC (MICROSCOPIC)
[2023-12-19 18:54] LABS: Appearance,Urine CLEAR (Clear); Bilirubin,Urine Negative (Negative); Blood, Urine Negative (Negative); Color,Urine YELLOW (Yellow); Glucose,Urine (UA) Negative (Negative); Ketones,Urine Negative (Negative); Leukocyte Esterase,Urine Negative (Negative); Nitrate,Urine Negative (Negative); PH,Urine 7.5 (5.0-8.5); Protein,Urine Negative (Negative); Specific Gravity, Urine 1.015 (1.005-1.030); Urobilinogen,Urine 0.2 EU/dl (0.2)
[2023-12-19 19:34] LABS: Bacteria,Urine Trace /lpf; RBC,Urine Occasional #/hpf (0-3); Squamous Epithelial Cell,Urine Occasional #/hpf (0-5)
[2023-12-19 20:09] LABS: Amphetamine/Metha Screen,Urine Negative ng/ml (<1000); Barbiturates Screen,Urine Positive ng/ml (<200); Benzodiazepines Screen,Urine Negative ng/ml (<200); Cannabinoid Screen,Urine Negative ng/ml (<50); Cocaine Screen,Urine Negative ng/ml (<300); Methadone Screen,Urine Negative ng/ml (<300); Opiate Screen,Urine Negative ng/ml (<300); Phencyclidine Screen,Urine Negative ng/ml (<25)
[2023-12-20 09:22] LABS: HCV Ab Non Reactive (Non Reactive)
== END 2023-12-19 17:40 | disposition home or self-care (01) ==
PROVIDERS: Emergency Medicine; Physician Assistant; Emergency Provider Emergency Medicine; PCP Family Medicine Addiction Medicine
DX: R00.0 Tachycardia, unspecified (principal); R07.9 Chest pain, unspecified; R42 Dizziness and giddiness
CPT/HCPCS: 71045; 71275; 80050; 80053; 80307; 81001; 83690; 83735; 83880; 84436; 84443; 84479; 84484; 84703; 85025; 85378; 85610; 86803; 87389; 93005; 96361; 96374; 96375; 99285; J1200; J1885; J2405; J2919; J7030; Q9967

== ENCOUNTER 2023-12-22 11:53 | Outpatient (CLI) | payer BC, SELFPAY ==
--- NOTE | 2023-12-22 11:53 | CT_ITS ---
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 A noncontrast coronary calcium scan was performed. A CT attenuation threshold of 130 Hounsfield units (HU) was used for the detection of calcium in contiguous voxels of 1 sq mm in area to be counted as individual lesions. Bolus tracking in the ascending aorta with a threshold of 180 HU was performed. Immediately afterwards, ECG synchronized cardiac CT was then performed from the cardiac base to apex using retrospective gating with ECG tube current modulation. A total of 85 mL of Isovue 370 mg/mL contrast medium was administered at 5 mL/sec followed by a saline flush using a biphasic injection protocol. A tube voltage of 120 KVp was used. The patient received the following medications prior to the cardiac CT. 75 mg of oral metoprolol 5 mg of intravenous metoprolol 15 mg of oral ivabradine 0.8 mg of sublingual nitroglycerin The average heart rate at the time of acquisition was 77 bpm and regular. Image Reconstruction Transaxial images were reconstructed at 0.67 mm slide thickness. Data was reviewed interactively on an advanced workstation capable of 2 and 3-dimensional displays in all conventional reconstruction formats, including multiplanar reformations, maximum intensity projections, curved multiplanar reformations, and volume rendered reconstructions. When applicable, selected routine images describing the relevant coronary anatomy and pathology were saved and sent to PACS. Complications None Technical Quality Overall image quality was good. Coronary artery opacification was adequate. Total DLP (Dose-Length Product) is 2785.3 mGy-cm. The reported value represents the total of one or more individual components during the CT acquisition of this date and at this time, and as such, the same value may appear in more than one CT report depending on the interpreting/reporting physicians. COMPARISON None FINDINGS CT Coronary Calcium Scoring LMA (Left Main Artery) = 0 LAD (Left Anterior Descending) = 0 LCX (Left Coronary Circumflex) = 0 RCA (Right Coronary Artery) = 0 Total Calcium Score = 0 using the AJ-130 method. The interpretation of the calcium heart score is based on the following continuum*: 0 = no calcified plaque detected (risk of coronary artery disease is very low ??? less than 5%) 1-10 = calcium detected in extremely minimal levels (risk of coronary diseases is still low ??? less than 10%) 11-100 = mild levels of plaque detected with certainty (mild or minimal narrowing of heart arteries is likely) 101-400 = definite,at least moderate levels of plaque detected (relatively high risk of a heart attack within 3-5 years) >401-999 = extensive levels of plaque detected (high risk of heart attack, high levels of vascular disease are present, high likelihood of at least one significant coronary narrowing) *The calcium heart score quantifies the burden of coronary calcification/plaque in the coronary arteries. The calcium heart score is not able to evaluate the presence or burden of non-calcified (i.e. soft) plaque. There is no identifiable calcification in the aortic valve, mitral annulus or mitral valve, pericardium, or myocardium. Coronary CT Angiography The coronary arterial system is right dominant. Quantitative Stenosis Grading: Left Main (LM): The left main originates normally from the left sinus of Valsalva. The LM bifurcates into the left anterior descending artery and left circumflex artery. The LM is patent with no evidence of atherosclerosis. Left Anterior Descending (LAD) and Diagonal Branches: The LAD gives off 3 diagonal branch(es). The LAD and its branches are patent with no evidence of atherosclerosis. There is no evidence of LAD-myocardial bridge. Left Circumflex (LCX) and Obtuse Marginals (OM): The LCX gives off 1 Obtuse Marginal (OM) branch(es). The LCX and its branches are patent with no evidence of atherosclerosis. Right Coronary Artery (RCA): The RCA originates normally from the right sinus of Valsalva. The RCA gives off a posterior descending artery (PDA) and posterolateral (PL) branches. The RCA and its branches are patent with no evidence of atherosclerosis. Non-Coronary Cardiac Findings: Analysis of the left ventricular (LV) structure and function was performed after 3-D reconstruction of the LV from axial images, with user-corrected automatic contouring for assessment of LV volumes and user-defined reconstruction from oblique planes for measurement of 3-D cardiac structure and function. -The left ventricle systolic function is normal. -There is no left atrial appendage filling defect. Two right pulmonary veins and two left pulmonary veins drain normally into the left atrium. -No pericardial thickening or calcification. -Central and branch pulmonary arteries in the [id number] are unremarkable. -Thoracic aorta within the visualized thoracic aortic-branches in the [id number] is unremarkable. Extracardiac Structures No significant extra-cardiac findings. Note, however, that this study is focused on the cardiac findings. IMPRESSION -Absence of coronary calcification with an Agatston score = 0 using the AJ-130 method. -No evidence of significant flow-limiting atherosclerosis of the coronary arteries. -No evidence of coronary anomalies or myocardial bridges. -CAD-RADS 0. Management recommendations per ACC/AHA guidelines*, as clinically appropriate. *Recommendations: CAD RADS 0: Reassurance. Consider non-atherosclerotic causes of chest pain. CAD RADS 1: Consider non-atherosclerotic causes of chest pain. Consider preventive therapy and risk factor modification. CAD RADS 2: Consider non-atherosclerotic causes of chest pain. Consider preventive therapy and risk factor modification, particularly for patients with nonobstructive plaque in multiple segments. CAD RADS 3: Consider further functional testing. Consider symptom-guided anti-ischemic and preventive pharmacotherapy as well as risk factor modification per published guideline statements. CAD RADS 4A: Consider further functional testing or invasive coronary angiography with revascularization per published guideline statements. Consider symptom-guided anti-ischemic and preventive pharmacotherapy as well as risk factor modification per published guideline statements. CAD RADS 4B: Invasive coronary angiography recommended with revascularization per published guideline statements. Consider symptom-guided anti-ischemic and preventive pharmacotherapy as well as risk factor modification per published guideline statements. CAD RADS 5: Consider invasive angiography and/or viability assessment with revascularization per published guideline statements. Consider symptom-guided anti-ischemic and preventive pharmacotherapy as well as risk factor modification per published guideline statements. CRITICAL RESULT None COMMUNICATION Per this written report The coronary and cardiac findings of this CCTA were reviewed, reported, and signed by Artur Aguilar MD ([employer]) Conclusion Electronically signed by : Juanita Aguilar MD 12/22/2023 15:48:43
[2023-12-22 12:08] VITALS: BMI 53.6
[2023-12-22 12:18] VITALS: BP 135/86; PULSE 86; RESP 16; TEMP 37.2; O2SAT 98
[2023-12-22 12:19] LABS: Urine Pregnancy, HCG Qual. Negative (Negative)
[2023-12-22] MEDS: METOPROLOL TARTRATE 50MG TABLET PO (12:27)
[2023-12-22] MEDS: METOPROLOL TARTRATE 25MG TABLET 25 MG (12:27)
[2023-12-22] MEDS: IVABRADINE HCL 7.5MG TABLET PO (12:28)
[2023-12-22] MEDS: METHYLPREDNISOLONE SOD SUCC 125MG VIAL 125 MG IV (12:36)
[2023-12-22] MEDS: diphenhydrAMINE 50MG/ML VIAL 25 MG IV (12:46)
[2023-12-22] MEDS: FAMOTIDINE 20MG/2ML VIAL 20 MG IV (12:46)
[2023-12-22 13:15] VITALS: BP 147/83; PULSE 74; RESP 16; O2SAT 99
[2023-12-22] MEDS: NITROGLYCERIN 0.4MG SL TABLET SL (13:15)
[2023-12-22 13:18] VITALS: BP 130/85; PULSE 76; RESP 16; O2SAT 100
[2023-12-22 13:21] VITALS: BP 127/60; PULSE 72; RESP 16; O2SAT 100
[2023-12-22] MEDS: METOPROLOL TARTRATE 5MG/5ML VIAL 5 MG IV (13:21)
[2023-12-22 13:24] VITALS: BP 137/77; PULSE 64; RESP 18; O2SAT 100
[2023-12-22] MEDS: SODIUM CHLORIDE 0.9% 10ML SYR (RAD ONLY) 10 ML IV (13:35)
[2023-12-22] MEDS: IOPAMIDOL-370 (76%);100ML BOTTLE 85 ML IV (13:35)
[2023-12-22] MEDS: 0.9 % SODIUM CHLORIDE 50 ML VIAL IV (13:35)
== END 2023-12-22 13:45 | disposition home or self-care (01) ==
PROVIDERS: PCP Family Medicine Addiction Medicine; Visit Provider Physician Assistant
DX: R07.89 Other chest pain (principal); R00.0 Tachycardia, unspecified; R06.09 Other forms of dyspnea
CPT/HCPCS: 75574; 81025; J1200; J2919; Q9967; S0028

== ENCOUNTER 2024-01-06 08:18 | Outpatient (CLI) | payer BC, SELFPAY ==
[2024-01-06 09:29] LABS: Iron 41 ug/dL (37-170)
[2024-01-06 09:31] LABS: Anion Gap 10.3 mEq/L (5-15); Blood Urea Nitrogen 8 mg/dl (7-17); Calcium 8.9 mg/dl (8.4-10.2); Carbon Dioxide 27 mmol/L (22.0-30.0); Chloride 107 mmol/L (98-107); Estimated Glomerular Filt Rate 83 ml/min (>60); GFR (African American) 101 ML/MIN (>60); Glucose 98 mg/dl (74-100); Potassium 4.3 mmoL/L (3.5-5.1); Sodium 140 mmol/L (136-145)
[2024-01-06 09:39] LABS: Total Iron Binding Capacity 355 ug/dL (265-497)
== END 2024-01-06 23:59 | disposition home or self-care (01) ==
LOC: LAB 08:19
PROVIDERS: Physician Assistant; PCP Family Medicine Addiction Medicine; Visit Provider Family Medicine Addiction Medicine
DX: R00.0 Tachycardia, unspecified (principal); R07.9 Chest pain, unspecified; K30 Functional dyspepsia; R06.09 Other forms of dyspnea; R07.89 Other chest pain
CPT/HCPCS: 36415; 80048; 83540; 83550

== ENCOUNTER 2024-01-16 13:25 | Outpatient (CLI) | payer BC, SELFPAY ==
--- NOTE | 2024-01-16 13:49 | US_ITS ---
PROCEDURE: US TRANSVAGINAL CLINICAL INDICATION: COMPARISON: No exams were available for comparison FINDINGS: Transvaginal sonographic images of the pelvis were obtained. UTERUS: 9.1cm x 4.5cmx 3.5cm anteverted with a combined endometrial thickness of 11.3mm. The endometrium is difficult to visualize. LEFT OVARY: 3.7cmx2.5cmx1.8cm with a volume of 8.6ml. RIGHT OVARY: 4.5cmx 2.9cmx2.0cm with a volume of 13.7ml. There is a small follicle in the right ovary measuring 1.8 cm x 1.2 cm Both ovaries are seen and appear normal. Doppler flow to both ovaries are seen. There is no fluid in the cul-de-sac. IMPRESSION: 1. Anteverted uterus normal in shape and size. The endometrium is normal. Difficult examination. 2. Both ovaries are seen and appear normal. 3. No fluid in the cul-de-sac. Dictated by: Patrick Raygoza MD 01/17/2024 10:37 Patrick Raygoza MD in [place] 01/17/2024 10:37
--- NOTE | 2024-01-16 14:19 | US_ITS ---
PROCEDURE INFORMATION: Exam: US Right Breast, Complete US Left Breast, Complete Exam date and time: 01/16/2024 2:36 PM Age: 34 years old Clinical indication: Bilateral breast pain TECHNIQUE: Imaging protocol: Complete ultrasound of all four quadrants of the right breast and the retroareolar regions, including ultrasound of the axilla when performed. Complete ultrasound of all four quadrants of the left breast and the retroareolar regions, including ultrasound of the axilla when performed. COMPARISON: No relevant prior studies available. FINDINGS: ULTRASOUND: Breast ultrasound findings: Complete scanning of both breasts is performed. There are scattered subcentimeter cysts in the right breast. In the right breast upper inner quadrant, 12 o'clock axis, 6 cm from the nipple, there is a focal hyperechoic regions measuring 0.4 x 0.2 x 0.5 cm that may represent fat necrosis. No shadowing or distortion. There is no axillary adenopathy. IMPRESSION: 1. Probably benign hyperechoic region in the right breast 12 o'clock axis, 6 cm from the nipple. Six-month follow-up right breast ultrasound is recommended for this finding. 2. If there continues to be bilateral breast pain, further evaluation with a diagnostic mammogram would be recommended. ASSESSMENT: BI-RADS Category 3: Probably benign.
== END 2024-01-16 23:59 | disposition home or self-care (01) ==
LOC: RAD 13:26
PROVIDERS: PCP Family Medicine Addiction Medicine; Visit Provider Obstetrics & Gynecology
DX: N64.4 Mastodynia (principal); R10.2 Pelvic and perineal pain; R00.2 Palpitations
CPT/HCPCS: 76641; 76830; 93225; 93227

== ENCOUNTER 2024-02-16 06:05 | Day surgery (SDC) | payer BC, SELFPAY ==
[2024-02-09 17:09] VITALS: BMI 54.6
[2024-02-16 06:43] VITALS: BP 123/84; PULSE 72; RESP 18; TEMP 36.8; O2SAT 98
[2024-02-16 06:57] LABS: Urine Pregnancy, HCG Qual. Negative (Negative)
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
--- NOTE | 2024-02-16 07:45 | P.PCN_ITS ---
[facility] Procedure Note Date: 02/16/24 Time: 07:56 Procedure Note:: Upper Endoscopy Procedure Report: Esophagogastroduodenoscopy with cold biopsies Endoscopost: Rex Becker II, MD Referring Physician: BLANE Carey Date of Procedure: February 16, 2024 Equipment: Olympus GIF 190 standard upper endoscope Sedation: MAC sedation Indications: Ms. Gray is a 34-year-old female with longstanding functional dyspepsia and IBS. She has had nausea, bloating and gassiness. She has had extensive testing including abdominal films, small bowel follow-through, gastric emptying study and C13 sucrose breath testing that was normal. She had diagnostic panendoscopy with me in March 2018 and had bile reflux with reactive gastropathy and colonoscopy was normal. She had been on a fiber bowel regimen (combined MiraLAX plus Citrucel daily) but her bowel function improved. She was given Gimoti by BLANE Henao and had eye twitching and stopped taking this. She did have mild EPI but Creon did not improve her symptoms. She has epigastric/left upper quadrant abdominal discomfort that radiates to the right and some early satiety. Buspirone was increased to 20 mg p.o. twice daily and patient was advised to use Iberogast which she is now taking as needed. She has had some improvement of her symptoms with this regimen but continues to have symptoms of nausea and hardness in the upper abdomen. She has had recent symptomatic bradycardia. She had extensive cardiac evaluation and has improved with beta-blockers. Procedure: Prior to the procedure, a history and physical exam was performed, and patient's medications and allergies were reviewed. The risks, benefits and alternatives of the sedation and procedure were discussed with the patient. All questions were answered and informed consent was obtained. The patient was brought to the procedure room. Patient identification and proposed procedure were verified by the physician and the nurse. The patient was placed in a left lateral decubitus position and the scope was passed under direct vision. Throughout the procedure, the patient's blood pressure, pulse, and oxygen saturations were monitored continuously. The upper GI endoscopy was accomplished without difficulty. The patient tolerated the procedure well. Findings: The scope was passed directly into the upper esophagus and advanced to the third portion of the duodenum. The post bulbar duodenum, ampulla and duodenal bulb were normal with normal mucosa and conniventes. The scope was withdrawn through a normal duodenal bulb and pylorus into the stomach. There was mild linear reactive gastropathy of the antrum. The body and fundus of the stomach were normal. There was no retained food or liquid in the stomach. Upon retroflexion there was a very small sliding 1 to 2 cm hiatal hernia. Biopsies were taken from the antrum. The scope was then withdrawn into the esophagus. There was no evidence of reflux esophagitis or Knapp's. There were mild tertiary contractions and mild esophageal dysmotility. The remainder of the esophageal mucosa was normal. Impression: 1. Nonerosive GERD with mild esophageal dysmotility and very small sliding 1 to 2 cm hiatal hernia 2. Mild linear reactive gastropathy of antrum Plan: The patient has functional dyspepsia and IBS with associated visceral sensitivity. She has improved with increase of buspirone and Iberogast. I do feel that most of her symptoms of dyspepsia are related to and driven by lower intestinal gas pressure gradients/high gas pressure buildup resulting in backflow of bile and peptic fluid from the duodenum into the stomach (duodenal reflux). This gas production (carbon dioxide, hydrogen, methane, etc.) from the lower intestinal tract is the byproduct of colonic bacterial fermentation. This colonic fermentation occurs when there is more carbohydrate (dietary starches, sugars and high residue plant fiber) substrate that does not get digested (in the middle or small intestine) or occurs when there is colonic fecal buildup and colonic bacterial overgrowth. This indeed leads to bloating and the gas pressure buildup with gas pressure gradients that do drive backflow and dyspepsia. I would consider reinitiation of the fiber bowel regimen (combined MiraLAX plus Citrucel).
[2024-02-16 07:59] VITALS: BP 98/61; PULSE 96; RESP 16; TEMP 36.3; O2SAT 95
[2024-02-16 08:09] VITALS: BP 111/70; PULSE 74; RESP 17; O2SAT 96
[2024-02-16 08:19] VITALS: BP 122/83; PULSE 83; RESP 17; O2SAT 96
[2024-02-16 08:29] VITALS: BP 119/80; PULSE 74; RESP 17; O2SAT 96
== END 2024-02-16 08:30 | disposition home or self-care (01) ==
PROVIDERS: PCP Family Medicine Addiction Medicine; Visit Provider Internal Medicine Gastroenterology
PROC: 0DJ08ZZ Inspection of Upper Intestinal Tract, Via Natural or Artificial Opening Endoscopic (ICD-10-PCS; CPT 43239; principal; 2024-02-16 07:30)
DX: K30 Functional dyspepsia (principal); R11.0 Nausea; R68.81 Early satiety; K21.9 Gastro-esophageal reflux disease without esophagitis; K44.9 Diaphragmatic hernia without obstruction or gangrene; K22.4 Dyskinesia of esophagus; K31.9 Disease of stomach and duodenum, unspecified
CPT/HCPCS: 43239; 81025

== ENCOUNTER 2024-02-20 09:41 | Outpatient (CLI) | payer BC, SELFPAY ==
--- NOTE | 2024-02-20 09:41 | MM_ITS ---
PROCEDURE INFORMATION: Exam: Right Diagnostic Breast Tomosynthesis Exam date and time: 02/20/2024 9:27 AM Age: 34 years old Clinical indication: Recall in the basis of sonography 01/16/2024 with history of bilateral breast pain and further evaluation with diagnostic mammogram. (prior ultrasound report noted probably benign hyperechoic region in the right breast 12 o'clock axis, 6 cm from the nipple. Six-month follow-up right breast ultrasound is recommended for this finding). TECHNIQUE: Imaging protocol: Right Diagnostic tomosynthesis and 2D mammography including computer-aided detection (CAD) when performed. Unilateral or bilateral exam. COMPARISON: US BREAST RT COMPLETE 01/16/2024 2:36 PM FINDINGS: MAMMOGRAPHY: Right Breast mammogram findings: Breast composition: There are scattered areas of fibroglandular density. Mass: A few subcentimeter lucent masses with rim calcification compatible with fat necrosis. No suspicious mass. Architectural distortion: None. Calcifications: No suspicious calcifications. Asymmetric density: None. Skin thickening: None. Axillary adenopathy: None. IMPRESSION: See comments History of right breast pain with six-month follow-up sonography recommended 01/16/2024. No mammographic evidence of malignancy on the right. Annual screening mammogram at age 40 unless otherwise clinically indicated. Also, if persistent history of left breast pain, left diagnostic mammography as indicated 01/16/2024. Further evaluation of a painful abnormality should be based on clinical grounds regardless of radiographic findings or lack thereof. ASSESSMENT: BI-RADS Category 1: Negative.
== END 2024-02-20 23:59 | disposition home or self-care (01) ==
LOC: RAD 09:41
PROVIDERS: PCP Family Medicine Addiction Medicine; Visit Provider Obstetrics & Gynecology
DX: N64.4 Mastodynia (principal); R92.8 Other abnormal and inconclusive findings on diagnostic imaging of breast
CPT/HCPCS: 77061; 77065; G0279

== ENCOUNTER 2024-02-23 09:02 | Outpatient (CLI) | payer BC, SELFPAY ==
[2024-02-23 17:37] LABS: Influenza A, PCR Not Detected (NotDetected); Influenza B, PCR Not Detected (NotDetected)
[2024-02-23 18:44] LABS: Coronavirus 19, PCR Detected (NotDetected)
== END 2024-02-23 23:59 | disposition home or self-care (01) ==
LOC: LAB.DROPOF 02-24 09:02
PROVIDERS: PCP Student in an Organized Health Care Education/Training Program; Visit Provider Student in an Organized Health Care Education/Training Program
DX: R09.81 Nasal congestion (principal); J02.9 Acute pharyngitis, unspecified
CPT/HCPCS: 87070; 87636

== ENCOUNTER 2024-04-13 12:28 | Outpatient (CLI) | payer BC, SELFPAY ==
[2024-04-13 13:03] LABS: Basophils % 0.4 % (0.1-2.0); Eosinophils # 0.1 K/mm3 (0.0-0.4); Eosinophils % 0.9 % (0.1-12.0); Hematocrit 35.4 % (37.0-47.0); Lymphocytes # 2.9 K/mm3 (0.7-4.5); Lymphocytes % 32.4 % (10-50); Mean Corpuscular HGB Conc 31.1 g/dL (31.8-35.4); Mean Corpuscular Volume 80.5 fl (81-99); Mean Platelet Volume 10.9 fl (7.4-10.4); Monocytes # 0.5 K/mm3 (0.1-1.0); Monocytes % 5.2 % (1.7-9.3); Neutrophils # 5.5 K/mm3 (1.8-7.8); Neutrophils % 60.9 % (37.0-80.0); Platelet Count 313 K/mm3 (142-424); Red Cell Distribution Width 13.8 % (11.5-17.5)
[2024-04-13 14:00] LABS: Alanine Aminotransferase 23 U/L (12-78); Albumin Level 4.2 g/dl (3.5-5.0); Albumin/Globulin Ratio 1.6 (1.1-1.8); Alkaline Phosphatase 99 U/L (38-126); Anion Gap 8.5 mEq/L (5-15); Aspartate Amino Transferase 23 U/L (14-36); Bilirubin,Total 0.3 mg/dl (0.2-1.3); Blood Urea Nitrogen 11 mg/dl (7-17); Calcium 9.2 mg/dl (8.4-10.2); Carbon Dioxide 28 mmol/L (22.0-30.0); Chloride 106 mmol/L (98-107); Chol/HDL Ratio 3.3 (1-3.5); Cholesterol 179 mg/dl (140-200); Estimated Glomerular Filt Rate 83 ml/min (>60); GFR (African American) 100 ML/MIN (>60); Globulin 2.7 g/dL (1.3-3.2); Glucose 85 mg/dl (74-100); HDL Cholesterol 54 mg/dl (40-60); Potassium 4.5 mmoL/L (3.5-5.1); Sodium 138 mmol/L (136-145); Total Protein,Serum 6.9 g/dl (6.3-8.2); Triglycerides 70 mg/dl (30-150); VLDL Cholesterol 14 mg/dL (0-40)
[2024-04-13 14:11] LABS: Direct LDL Cholesterol 102.61 mg/dL (100-129)
[2024-04-13 14:15] LABS: Free T4 (Free Thyroxine) 1.09 ng/dl (0.78-2.19)
[2024-04-13 14:20] LABS: Hemoglobin A1C 5.4 % (4.0-6.0)
[2024-04-13 14:30] LABS: Thyroid Stimulating Hormone 1.37 uIU/mL (0.465-4.68)
== END 2024-04-13 23:59 | disposition home or self-care (01) ==
LOC: LAB 12:29
PROVIDERS: PCP Family Medicine Addiction Medicine; Visit Provider Nurse Practitioner Family
DX: Z00.00 Encounter for general adult medical examination without abnormal findings (principal)
CPT/HCPCS: 36415; 80053; 80061; 83036; 84439; 84443; 85025

== ENCOUNTER 2024-05-29 10:48 | Outpatient (CLI) | payer BC, SELFPAY ==
[2024-05-29 11:49] LABS: 25-OH Vitamin D, Total 65.5 ng/mL (30-100)
== END 2024-05-29 23:59 | disposition home or self-care (01) ==
LOC: LAB 10:49
PROVIDERS: PCP Family Medicine Addiction Medicine; Visit Provider Nurse Practitioner
DX: E55.9 Vitamin D deficiency, unspecified (principal)
CPT/HCPCS: 36415; 82306

== ENCOUNTER 2024-07-18 09:42 | Outpatient (CLI) | payer BC, SELFPAY ==
--- OUTSIDE RECORDS SUMMARY | 2024-07-18 09:44 | XMS_ITS | Clinical Summary ---
Author Organization Healthcare Address [address] [place] [address] Care Team Providers Care Social Welfare Clerk Name Role Phone Unavailable Primary Care Provider Unavailabl e Social History Tobacco Use Types Packs/Day Years Used Date Smoking Tobacco: Never Assessed Comments Unknown Sex and Gender Information Value Date Recorded Sex Assigned at Not on file Legal Sex Female 7:38 PM EDT Gender Identity Not on file Sexual Orientation Not on file Plan of Treatment Health Maintenance Due Date Last Done Comments [facility]-Depression Screening 1991 [facility]-/Child/Adol SDOH Screenings 1991 [facility]-Varicella Vaccines (1 of 2 - 13+ 2-dose series) 01/07/2004 HPV Vaccines (1 - 3-dose series) 2006 [facility]- SDOH Screenings 2009 [facility]-Adult SDOH Screenings 2009 [facility]-Pap Smear 01/07/2012 [facility]-Cervical Cancer Screening 2021 [facility]-HPV/Cotest 2021 [id number] Vaccine ( - season) 2023 [facility]-Influenza Vaccine (Season Ended) 2024 11/04/2008, 12/25/2007 [facility]-DTaP,Tdap,and Td Vaccines (7 - Td or Tdap) 06/10/2031 06/09/2021, 02/28/1995, 07/03/1992, Additional history exists [facility]-Zoster Vaccines (1 of 2) 2041 [facility]-HIB Vaccines Completed 04/28/1992, , 1991, Additional history exists [facility]-IPV Vaccines Completed 02/28/1995, , 1991, Additional history exists [facility]-Hepatitis B Vaccines Completed 001, 07/01/2000, 05/19/2000 [facility]-Hepatitis A Vaccines Aged Out No longer eligible based on patient's age to complete this topic [facility]-Pneumococcal Vaccine: Pediatrics (0 to 5 Years) and At-Risk Patients (6 to 49 Years) Aged Out No longer eligible based on patient's age to complete this topic [facility]-Rotavirus Vaccines Aged Out No lo nger eligible based on patient's age to complete this topic Insurance ANTHEM
--- OUTSIDE RECORDS SUMMARY | 2024-07-18 09:44 | XMS_ITS | Clinical Summary ---
Author Organization [facility] Address [address] [place] [address] Phone Care Team Providers Care Geospatial Engineer Name Role Phone Unavailable Primary Care Provider Unavailabl e Allergies Active Allergy Reactions Criticality Noted Date Comments Iodinated Contrast Media Hives 02/10/2009 Can take oral, just allergic to IV dye Latex Rash 10/20/2018 Escitalopram Other (See Comments) 07/21/2020 Nightmares, worsening anxiety Prucalopride Other (See Comments) 02/21/2020 Heart racing, abd pain, diarrhea Unclassified Drug Hives 06/09/2021 ct drug Medications Bifidobacterium infantis (ALIGN ORAL) 03/31/2018 Active busPIRone (BUSPAR) 10 mg Oral Tablet Take 10 mg by mouth 2 times daily. 03/31/2018 Active omeprazole (PRILOSEC) 20 mg Oral Capsule, Delayed Release(E.C.) 20 mg. 12/19/2017 Activ e cetirizine (ZYRTEC) 10 mg Oral Tablet Take 10 mg by mouth daily. Active ondansetron (ZOFRAN-ODT) 4 mg Oral Tablet, Rapid DissolveIndicati ons:Nausea Take 1 Tab by mouth every 6 hours as needed for Nausea or Vomiting. 20 Tab 01/12/2019 Active montelukast (SINGULAIR) 10 mg Oral Tablet Take 10 mg by mouth nightly. 05/29/2021 Active meloxicam (MOBIC) 15 mg Oral TabletIndication s:Left foot pain,Foot injury, left, subsequent encounter Take 1 Tablet by mouth daily as needed for Pain. Take with food 30 Tablet 1 06/09/2021 Active Active Problems Problem Noted Date Diagnosed Date Obesity, morbid, BMI 50 or higher 07/12/2019 Assessment & Plan (07/12/2019 11:25 AM EDT): To work on diet and exercise for weight loss. Functional dyspepsia 03/31/2018 Umbilical hernia without obstruction and without gangrene 09/21/2016 Overview (09/21/2016): Noted on CT 09/20/16 SOB (shortness of breath) 06/25/2016 Complete or unspecified spon taneous without complication 04/19/2011 Pelvic pain 07/03/2010 Encounter for routine gynecological examination 07/03/2010 GERD (gastroesophageal reflux disease) 0 Depression 04/17/2009 Assessment & Plan (11/20/2020 9:38 AM EDT): Restart treatment AR (allergic rhinitis) 02/10/2009 Anemia, due to inadequate iron intake 02/10/2009 IBS (irritable bowel syndrome) 02/10/2009 Palpitations Immunizations Immunization Administration Dates Next Due DTaP 02/28/1995, 3,1991,1991,1991 Hepatitis B, Unspecified Formulation 12/01/2000, 07/01/2000,05/19/2000 HiB, Unspecified Formulation 04/28/1992, 1991,1991,1991 IPV 02/28/1995, 3,1991,1991 Influenza Vaccine, Unspecifi ed Formulation 11/04/2008,12/09/2007 MMR 08/28/1996,04/28/1992 Tdap 06/09/2021 Tetanus, Unspecified Formulation 09/12/2002 Surgical History Surgery Date Site/Laterality Comments SECTION UPPER GASTROINTESTINAL ENDOSCOPY 4 13 11 COLONOSCOPY CHOLECYSTECTOMY 08/08/2015 - 09/07/2015 @ [facility] Medical History Medical History Date Comments AR (allergic rhinitis) 02/10/2009 Anemia, due to inadequate iron intake 02/10/2009 IBS (irritable bowel syndrome) 02/10/2009 Social History Tobacco Use Types Packs/Day Years Used Date Smoking Tobacco: Never Smokeless Tobacco: Never Tobacco Cessation:Counseling Given: Yes Alcohol Use Standard Drinks/Week Comments Yes 0 (1 standard drink = 0.6 oz pur e alcohol) socially PHQ-2 Answer Date Recorded PHQ-2 Total Score 0 11/20/2020 Sexually Active Control Partners Comments Yes Male Comments No Sex and Gender Information Value Date Recorded Sex Assigned at Not on file Legal Sex Female 11:30 PM EDT Gender Identity Not on file Sexual Orientation Not on file Obstetrics History Para Term AB IAB SAB Ectopic Multiple Livin g Live Births 1 Date Outcome GA Total Labor Labor/2nd/3rd Weight Sex Type Anes PTL Patricia A1 A5 Name Clin Comments:System Genera osito. Please review and update details. Last Filed Vital Signs Vital Sign Reading Time Taken Comments Blood Pressure 118/64 06/09/2021 10:27 AM EDT Pulse 92 06/09/2021 10:27 AM EDT Temperature 36.7 C (98.1 F) 06/09/2021 10:27 AM EDT Respiratory Rate 18 10/05/2019 2:46 PM EDT Oxygen Saturation 96% 06/09/2021 10:27 AM EDT Inhaled Oxygen Concentration - - Weight 122.5 kg (270 lb) 06/09/2021 10:27 AM EDT Height 154.9 cm (5' 1 ) 06/09/2021 10:27 AM EDT Body Mass Index 51.02 06/09/2021 10:27 AM EDT Plan of Treatment Health Maintenance Due Date Last Done Comments Pap Smear 06/20/2012 06/20/2009 Annual Wellness Exam 07/11/2020 07/12/2019 Cervical Cancer Screening 2021 HPV/Pap Cotest 2021 COVID-19 Vaccine ( season) 2023 Influenza Vaccine (Season Ended) 2024 12/10/2016 (Declined), 11/04/2008, 12/09/2007 DTaP/TDaP/Td (7 - Td or Tdap) 06/10/2031 06/09/2021, 02/28/1995, 07/03/1992, Additional history exists Hepatitis B Vaccine Completed 12/01/2000, 07/01/2000, 05/19/2000 Meningococcal B Vaccine Aged Out No l onger eligible based on patient's age to complete this topic Pneumococcal Vaccine 0-49 Aged Out No longer eligible based on patient's age to complete this topic Goals Goal Patient Goal Type Associated Problems Recent Progress Patient-Stated? Author Maintain a healthy diet, exercise regularly and maintain an ideal body weight General No Bev Fowler CCMA Procedures Procedure Name Priority Date/Time Associated Diagnosis Comments CHROMIUM PLATER CYTOLOGY REPORT Routine 06/20/2009 5 :10 AM EDT from Last 3 Months or Most Recently Relevant to Health Maintenance Results * CHROMIUM PLATER CYTOLOGY REPORT (06/20/2009 5:10 AM EDT) Criminal Intelligence Analyst Cytology Report PATIENT NAME:DEE DEE MARIA V Criminal Intelligence Analyst Cytology Report Accession Number Collected Date/Time Received Date/Time [id number] 06/20/09 05:10 EDT 06/23/09 05:10 EDT GY Specimen Source Specimen Vag/Cerv/Endocx?: Vaginal/Cervical/E ndocervical Statement of Adequacy Satisfactory for Evaluation. Transformation Zone Present. Diagnosis NEGATIVE FOR INTRAEPITHELIAL LESION OR MALIGNANCY. Comment The Pap Smear is a screening test that aids in the detection of cervical cancer and cancer precursors. Both false positive and false negative results can occur. The test should be used at regular intervals, and positive results should be confirmed before definitive therapy. Processed using the ThinPrep Automatic Fancy Machine Operator automated cytology screening device ([email or web address]). Medical Dir: TS 07/08/2009 Completed by: MILAGRO Salazar (Electronically signed by) 07/08/2009 [facility] 06/20/2009 5:10 AM EDT L Jose Mckinley MD PATHOLOGY ORDERABLES Final Result [facility] [address] [place] [address] from Last 3 Months or Most Recently Relevant to Health Maintenance Insurance ANTHEM PPO ANTHEM PPO
--- NOTE | 2024-07-18 10:30 | US_ITS ---
PROCEDURE INFORMATION: Exam: US Right Breast, Complete Exam date and time: 07/18/2024 10:11 AM Age: 34 years old Clinical indication: Follow-up from prior for probably benign right breast masses. TECHNIQUE: Imaging protocol: Complete ultrasound of all four quadrants of the right breast and the retroareolar regions, including ultrasound of the axilla when performed. COMPARISON: US BREAST RT COMPLETE 01/16/2024 2:36 PM FINDINGS: ULTRASOUND: Breast ultrasound findings: Right breast ultrasound: At 12 o'clock 7 cm from nipple (previously labeled 12 o'clock 6 cm from the nipple) there is an echogenic focus measuring 0.4 x 0.3 x 0 point 4 cm, stable or perhaps slightly decreased in size since prior. Redemonstrated scattered benign oil cysts. No abnormal lymph nodes in the axilla. IMPRESSION: Stable echogenic focus in the right breast at 12 o'clock again favored to represent a posttraumatic finding, unchanged since 01/16/2024. Recommend six-month follow-up right breast ultrasound to ensure stability. ASSESSMENT: BI-RADS Category 3: Probably benign.
== END 2024-07-18 23:59 | disposition home or self-care (01) ==
PROVIDERS: PCP Family Medicine Addiction Medicine; Visit Provider Obstetrics & Gynecology
DX: N63.10 Unspecified lump in the right breast, unspecified quadrant (principal); N60.01 Solitary cyst of right breast; R92.8 Other abnormal and inconclusive findings on diagnostic imaging of breast
CPT/HCPCS: 76641

== ENCOUNTER 2024-07-22 13:45 | Outpatient (CLI) | payer BC, SELFPAY ==
--- OUTSIDE RECORDS SUMMARY | 2024-07-22 13:48 | XMS_ITS | Clinical Summary ---
Author Organization Healthcare Address [address] [place] [address] Care Team Providers Care Tractor Mechanic Name Role Phone Unavailable Primary Care Provider [...] 01/07/2012 [facility]-Cervical Cancer Screening 2021 [facility]-HPV/Cotest 2021 DIS-WADYL-20 Vaccine ( - season) 2023 [facility]-Influenza Vaccine [...]
--- OUTSIDE RECORDS SUMMARY | 2024-07-22 13:48 | XMS_ITS | Clinical Summary ---
Author Organization [facility] Address [address] [place] [address] Phone Care Team Providers Care Steep Tender Name Role Phone Unavailable Primary Care Provider [...] 11 COLONOSCOPY CHOLECYSTECTOMY 08/08/2015 - 09/07/2015 @ [facility] Medical History Medical History Date Comments [...] Procedure Name Priority Date/Time Associated Diagnosis Comments HEALTHCARE CONSULTANT CYTOLOGY REPORT Routine 06/20/2009 5 :10 AM EDT from Last 3 Months or Most Recently Relevant to Health Maintenance Results * HEALTHCARE CONSULTANT CYTOLOGY REPORT (06/20/2009 5:10 AM EDT) Demolition Engineer Cytology Report PATIENT NAME:DEE DEE MARIA V Demolition Engineer Cytology Report Accession Number Collected Date/Time Received Date/Time [id number] 06/20/09 05:10 EDT 06/23/09 05:10 EDT GY [...] before definitive therapy. Processed using the ThinPrep Healthcare Advisory Services Manager automated cytology screening device ([employer]). Halftone Operator: TS 07/08/2009 Completed by: MILAGRO Salazar (Electronically signed by) 07/08/2009 [facility] 06/20/2009 5:10 AM EDT L Jose Mckinley MD PATHOLOGY ORDERABLES Final Result [facility] [address] [place] [address] from Last 3 Months or Most Recently Relevant to Health Maintenance Insurance ANTHEM PPO ANTHEM PPO
--- NOTE | 2024-07-22 13:52 | XR_ITS ---
PROCEDURE INFORMATION: Exam: XR Left Ankle Exam date and time: 07/22/2024 1:42 PM Age: 34 years old Clinical indication: Pain; Ankle; Left; Additional info: L ankle pain TECHNIQUE: Imaging protocol: Radiologic exam of the left ankle. Views: 3 or more views. COMPARISON: CR XR FOOT LT MIN 3V 06/07/2021 8:25 PM FINDINGS: Bones/joints: Normal. Soft tissues: Normal. IMPRESSION: No acute findings.
--- NOTE | 2024-07-22 13:52 | XR_ITS ---
PROCEDURE INFORMATION: Exam: XR Left Foot Exam date and time: 07/22/2024 1:44 PM Age: 34 years old Clinical indication: Pain; Foot; Left; Additional info: L foot/ankle pain TECHNIQUE: Imaging protocol: Radiologic exam of the left foot. Views: 3 or more views. COMPARISON: CR XR FOOT LT MIN 3V 06/07/2021 8:25 PM FINDINGS: Bones/joints: Normal. Soft tissues: Normal. IMPRESSION: No acute findings.
== END 2024-07-22 23:59 | disposition home or self-care (01) ==
PROVIDERS: PCP Family Medicine Addiction Medicine; Visit Provider Student in an Organized Health Care Education/Training Program
DX: M25.572 Pain in left ankle and joints of left foot (principal)
CPT/HCPCS: 73610; 73630

== ENCOUNTER 2024-08-20 08:08 | Outpatient (CLI) | payer BC, SELFPAY ==
--- OUTSIDE RECORDS SUMMARY | 2024-08-20 08:10 | XMS_ITS | Clinical Summary ---
Author Organization [facility] Address [address] [place] [address] Phone Care Team Providers Care Transformer Maker Name Role Phone Unavailable Primary Care Provider [...] 11 COLONOSCOPY CHOLECYSTECTOMY 08/08/2015 - 09/07/2015 @ [facility] Medical History Medical History Date Comments AR [...] COVID-19 Vaccine ( season) 2023 Influenza Vaccine (#1) 2024 7 (Declined), 11/04/2008, 12/09/2007 DTaP/TDaP/Td (7 - Td [...] Procedure Name Priority Date/Time Associated Diagnosis Comments BEAUTY SPECIALIST CYTOLOGY REPORT Routine 06/20/2009 5 :10 AM EDT from Last 3 Months or Most Recently Relevant to Health Maintenance Results * BEAUTY SPECIALIST CYTOLOGY REPORT (06/20/2009 5:10 AM EDT) Group President Cytology Report PATIENT NAME:DEE DEE MARIA V Group President Cytology Report Accession Number Collected Date/Time Received Date/Time [id number] 06/20/09 05:10 EDT 06/23/09 05:10 EDT GY [...] before definitive therapy. Processed using the ThinPrep Program Therapist automated cytology screening device (Neema). Av Specialist: ROBIN 07/08/2009 Completed by: MILAGRO Salazar (Electronically signed by) 07/08/2009 [facility] Laboratory [facility] 06/20/2009 5:10 AM EDT L Jose Mckinley MD PATHOLOGY ORDERABLES Final Result [facility] [address] [place] [address] from Last 3 Months or Most Recently Relevant to Health Maintenance Insurance ANTHEM PPO ANTHEM PPO
--- OUTSIDE RECORDS SUMMARY | 2024-08-20 08:10 | XMS_ITS | Clinical Summary ---
Author Organization Healthcare Address [address] [place] [address] Care Team Providers Care Sexologist Name Role Phone Unavailable Primary Care Provider [...] 01/07/2012 [facility]-Cervical Cancer Screening 2021 [facility]-HPV/Cotest 2021 [id number] Vaccine ( - season) 2023 [facility]-Influenza Vaccine (#1) 2024 11/04/2008, [facility]-DTaP,Tdap,and Td Vaccines (7 - Td or [...]
[2024-08-20 10:10] LABS: Iron 41 ug/dL (37-170)
[2024-08-20 10:21] LABS: Total Iron Binding Capacity 334 ug/dL (265-497)
[2024-08-20 10:46] LABS: Ferritin 11.9 ng/ml (6.24-137)
== END 2024-08-20 23:59 | disposition home or self-care (01) ==
LOC: LAB 08:09
PROVIDERS: PCP Family Medicine Addiction Medicine; Visit Provider Family Medicine Addiction Medicine
DX: Z51.81 Encounter for therapeutic drug level monitoring (principal); Z79.899 Other long term (current) drug therapy
CPT/HCPCS: 36415; 82728; 83540; 83550

== ENCOUNTER 2024-08-27 13:44 | Outpatient (CLI) | payer BC, SELFPAY ==
--- OUTSIDE RECORDS SUMMARY | 2024-08-27 13:47 | XMS_ITS | Clinical Summary ---
Author Organization [facility] Address [address] [place] [address] Phone Care Team Providers Care Disciplinary Hearing Officer Name Role Phone Unavailable Primary Care Provider [...] 11 COLONOSCOPY CHOLECYSTECTOMY 08/08/2015 - 09/07/2015 @ [facility] Medical History Medical History Date Comments AR [...] Procedure Name Priority Date/Time Associated Diagnosis Comments SPEECH COMMUNICATION INSTRUCTOR CYTOLOGY REPORT Routine 06/20/2009 5 :10 AM EDT from Last 3 Months or Most Recently Relevant to Health Maintenance Results * SPEECH COMMUNICATION INSTRUCTOR CYTOLOGY REPORT (06/20/2009 5:10 AM EDT) Inspector Production Plastic Parts Cytology Report PATIENT NAME:DEE DEE MARIA V Inspector Production Plastic Parts Cytology Report Accession Number Collected Date/Time Received Date/Time [id number] 06/20/09 05:10 EDT 06/23/09 05:10 EDT GY [...] before definitive therapy. Processed using the ThinPrep Computer Teacher automated cytology screening device ([employer]). Medical Practice Assistant: ROBIN 07/08/2009 Completed by: MILAGRO Salazar (Electronically signed by) 07/08/2009 [facility] Laboratory [facility] 06/20/2009 5:10 AM EDT L Jose Mckinley MD PATHOLOGY ORDERABLES Final Result [facility] [address] [place] [address] from Last 3 Months or Most Recently Relevant to Health Maintenance Insurance ANTHEM PPO ANTHEM PPO
--- OUTSIDE RECORDS SUMMARY | 2024-08-27 13:47 | XMS_ITS | Clinical Summary ---
Author Organization Healthcare Address [address] [place] [address] Care Team Providers Care Back Digger Operator Name Role Phone Unavailable Primary Care Provider [...] 01/07/2012 [facility]-Cervical Cancer Screening 2021 [facility]-HPV/Cotest 2021 [id number] Vaccine ( - season) 2023 [facility]-Influenza Vaccine [...]
--- NOTE | 2024-08-27 14:15 | MR_ITS ---
FINAL REPORT TECHNIQUE: Multiplanar MRI without gadolinium enhancement CLINICAL HISTORY: Evaluate for Sprain and Strain of Left Ankle stepped in a hole july 22, lateral sided pain COMPARISON: none FINDINGS: Articular cartilage: No focal osteochondral defect Marrow signal: Normal pattern Joint fluid: Small Tendons: No evidence of tear Ligaments: Major ligaments unremarkable Plantar fascia: No evidence of tear or fasciitis. IMPRESSION: Unremarkable exam. Reviewed, Interpreted and Dictated by Wallace Tee MD Transcribed by Kristi Mcclendon Authenticated and [facility]
--- NOTE | 2024-08-27 15:00 | MR_ITS ---
FINAL REPORT CLINICAL HISTORY: Evaluate for Pain of Left Foot stepped in a hole july 22, lateral sided pain FINDINGS: Multiplanar MR imaging of the left foot was performed without contrast. The bony structures are intact without evidence of fracture, bone bruise or marrow edema. There is mild tendinosis of the distal posterior tibialis tendon. Remaining tendons are unremarkable. No ligamentous injury is identified. The musculature is intact. The plantar aponeurosis is intact. No soft tissue mass or cyst is identified. IMPRESSION: No acute bony abnormality identified. Mild tendinosis of the distal posterior tibialis tendon. Reviewed, Interpreted and Dictated by Wallace Tee MD Transcribed by Mariann Varela Authenticated and [facility]
== END 2024-08-27 23:59 | disposition home or self-care (01) ==
LOC: RAD 13:44
PROVIDERS: PCP Family Medicine Addiction Medicine; Visit Provider Nurse Practitioner
DX: M76.822 Posterior tibial tendinitis, left leg (principal); S93.402A Sprain of unspecified ligament of left ankle, initial encounter; S96.912A Strain of unspecified muscle and tendon at ankle and foot level, left foot, initial encounter; M25.472 Effusion, left ankle
CPT/HCPCS: 73718; 73721

== ENCOUNTER 2024-09-21 14:13 | Emergency (ER) | payer BC, SELFPAY ==
[2024-09-21] VITALS (8 sets, daily range): BP systolic 105–126; BP diastolic 33–71; PULSE 71–97; RESP 12–21; TEMP 36.6–36.7; O2SAT 96–100; BMI 44.9
--- OUTSIDE RECORDS SUMMARY | 2024-09-21 14:19 | XMS_ITS | Clinical Summary ---
Author Organization Healthcare Address [address] [place] [address] Care Team Providers Care Compliance Field Technician Name Role Phone Unavailable Primary Care Provider [...] Date Last Done Comments [facility]-Depression Screening 1991 [facility]-Infant/Child/Adol SDOH Screenings 1991 [facility]-Varicella Vaccines (1 of 2 - 13+ 2-dose series) 01/07/2004 [facility]- SDOH Screenings 2009 [facility]-Adult SDOH Screenings 2009 [facility]-Pap Smear 01/07/2012 HPV Vaccines (1 - 3-dose SCDM series) 2018 [facility]-Cervical Cancer Screening 2021 [facility]-HPV/Cotest 2021 [id number] Vaccine ( - season) 2023 [facility]-Influenza Vaccine [...]
--- OUTSIDE RECORDS SUMMARY | 2024-09-21 14:19 | XMS_ITS | Clinical Summary ---
Author Organization [facility] Address [address] [place] [address] Phone Care Team Providers Care Fermenter Champagne Name Role Phone Unavailable Primary Care Provider [...] 11 COLONOSCOPY CHOLECYSTECTOMY 08/08/2015 - 09/07/2015 @ [facility] Medical History Medical History Date Comments AR [...] Procedure Name Priority Date/Time Associated Diagnosis Comments CREDIT BALANCE SPECIALIST CYTOLOGY REPORT Routine 06/20/2009 5 :10 AM EDT from Last 3 Months or Most Recently Relevant to Health Maintenance Results * CREDIT BALANCE SPECIALIST CYTOLOGY REPORT (06/20/2009 5:10 AM EDT) Coal Trimmer Machine Operator Cytology Report PATIENT NAME:DEE DEE MARIA V Coal Trimmer Machine Operator Cytology Report Accession Number Collected Date/Time Received Date/Time [id number] 06/20/09 05:10 EDT 06/23/09 05:10 EDT GY [...] before definitive therapy. Processed using the ThinPrep Sales Service Manager automated cytology screening device ([employer]). Clay Digger: ROBIN 07/08/2009 Completed by: MILAGRO Salazar (Electronically signed by) 07/08/2009 [facility] 06/20/2009 5:10 AM EDT L Jose Mckinley MD PATHOLOGY ORDERABLES Final Result [facility] [address] [place] [address] from Last 3 Months or Most Recently Relevant to Health Maintenance Insurance ANTHEM PPO ANTHEM PPO
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
--- NOTE | 2024-09-21 14:45 | CT_ITS ---
FINAL REPORT TECHNIQUE: Noncontrast exam This study was performed with techniques to keep radiation doses as low as reasonably achievable, (ALARA). Individualized dose reduction techniques using automated exposure control or adjustment of mA and/or kV according to the patient''s size were employed. CLINICAL HISTORY: headache, L numbness COMPARISON: none FINDINGS: No abnormal density is seen. Ventricles are normal. There is no hemorrhage. No mass effect is seen. There is left maxillary sinusitis. Bone windows show no evidence of fracture. IMPRESSION: No acute findings Reviewed, Interpreted and Dictated by Wallace Tee MD Transcribed by Kristi Mcclendon Authenticated and [facility]
--- NOTE | 2024-09-21 14:45 | CT_ITS ---
FINAL REPORT CLINICAL HISTORY: headache, left sided numbness COMPARISON: None FINDINGS: CTA HEAD TECHNIQUE: Thin section axial CT with contrast with 3D MIP reconstruction This study was performed with techniques to keep radiation doses as low as reasonably achievable, (ALARA). Individualized dose reduction techniques using automated exposure control or adjustment of mA and/or kV according to the patient''s size were employed. FINDINGS: No aneurysm is seen. Major intracranial vessels are patent without significant stenosis. . IMPRESSION: Unremarkable This study was performed using automated techniques to achieve radiation exposure as low as reasonably achievable Reviewed, Interpreted and Dictated by Wallace Tee MD Transcribed by Kristi Mcclendon Authenticated and [facility]
--- NOTE | 2024-09-21 14:45 | CT_ITS ---
FINAL REPORT CLINICAL HISTORY: L sided numbness, headache COMPARISON: None FINDINGS: CT NECK ANGIO, WITHOUT AND WITH CONTRAST TECHNIQUE: Thin section axial CT with contrast with multiplanar 3D MIP reconstruction. This study was performed with techniques to keep radiation doses as low as reasonably achievable, (ALARA). Individualized dose reduction techniques using automated exposure control or adjustment of mA and/or kV according to the patient''s size were employed. NASCET criteria and technique was utilized during interpretation. FINDINGS: Aortic arch: Arch shows no significant narrowing. Great vessel origins are widely patent. Linear density within the distal ascending aorta is considered artifact as opposed to dissection. Right carotid: No significant stenosis is seen of the cervical common or internal carotid artery. Left carotid: No significant stenosis is seen of the cervical common or internal carotid artery. Vertebrals: Left vertebral artery is dominant. No significant stenosis is present. IMPRESSION: No significant stenosis of the cervical carotid arteries This study was performed using automated techniques to achieve radiation exposure as low as reasonably Reviewed, Interpreted and Dictated by Wallace Tee MD Transcribed by Kristi Mcclendon Authenticated and [facility]
--- NOTE | 2024-09-21 14:56 | ECG_ITS ---
APPROVED REPORT Exam: Resting ECG HR:76 bpm ECG Measurements Heart Rate 76 AXES AL 134 P 51 QRSd 96 QRS 81 QT 368 T 10 QTc 399 Conclusion SINUS RHYTHM WITH SINUS ARRHYTHMIA LOW QRS VOLTAGE IN PRECORDIAL LEADS [QRS DEFLECTION < 1.0 mV IN CHEST LEADS] BORDERLINE ECG UNCONFIRMED REPORT Electronically signed by : BAKARI RESTREPO, 09/22/2024 06:56:00
[2024-09-21 14:59] LABS: Hematocrit 34.9 % (37.0-47.0); Hemoglobin 10.7 g/dL (12.2-16.2); Immature Granulocytes % 0.2 %; Mean Corpuscular HGB Conc 30.7 g/dL (31.8-35.4); Mean Corpuscular Hemoglobin 24.7 pg (27.0-31.2); Mean Corpuscular Volume 80.6 fl (81-99); Nucleated Red Blood Cells % 0 %; Platelet Count 303 K/mm3 (142-424); Red Blood Count 4.33 M/mm3 (4.20-5.40); Red Cell Distribution Width-SD 41.5 fL; White Blood Count 11.3 K/mm3 (4.8-10.8)
[2024-09-21] MEDS: droPERidol 5MG/2ML VIAL 2.5 MG IV (15:00)
[2024-09-21 15:15] LABS: Alanine Aminotransferase 22 U/L (12-78); Albumin Level 4.2 g/dl (3.5-5.0); Albumin/Globulin Ratio 1.4 (1.1-1.8); Alkaline Phosphatase 118 U/L (38-126); Anion Gap 10.9 mEq/L (5-15); Aspartate Amino Transferase 27 U/L (14-36); Bilirubin,Total 0.2 mg/dl (0.2-1.3); Blood Urea Nitrogen 7 mg/dl (7-17); Calcium 8.8 mg/dl (8.4-10.2); Carbon Dioxide 26 mmol/L (22.0-30.0); Chloride 104 mmol/L (98-107); Creatinine Clearance Estimated 103 mL/min (50-200); Creatinine,Serum 0.70 mg/dl (0.52-1.04); Estimated Glomerular Filt Rate 96 ml/min (>60); GFR (African American) 117 ML/MIN (>60); Globulin 3.0 g/dL (1.3-3.2); Glucose 92 mg/dl (74-100); INR 0.98 (0.9-1.1); Magnesium 1.8 mg/dl (1.6-2.3); Potassium 3.9 mmoL/L (3.5-5.1); Prothrombin Time 10.9 seconds (10.1-12.5); Sodium 137 mmol/L (136-145); Total Protein,Serum 7.2 g/dl (6.3-8.2)
[2024-09-21 15:18] LABS: HCG Qualitative, Serum Negative (Negative)
[2024-09-21 15:42] LABS: Troponin I < 0.01 ng/ml (0.00-0.034)
[2024-09-21] MEDS: 0.9 % SODIUM CHLORIDE 50 ML VIAL 40 ML IV (15:59)
[2024-09-21] MEDS: IOPAMIDOL-370 (76%);100ML BOTTLE 80 ML IV (15:59)
== END 2024-09-21 17:05 | disposition home or self-care (01) ==
PROVIDERS: Emergency Provider Student in an Organized Health Care Education/Training Program; PCP Family Medicine Addiction Medicine
DX: R51.9 Headache, unspecified (principal); H53.8 Other visual disturbances; R11.0 Nausea; R42 Dizziness and giddiness
CPT/HCPCS: 70450; 70496; 70498; 80053; 83735; 84484; 84703; 85025; 85610; 93005; 96374; 96375; 99285; J1200; J1790; Q9967

== ENCOUNTER 2024-11-16 12:12 | Outpatient (CLI) | payer OTHER, BC, SELFPAY ==
[2024-11-16 12:38] LABS: Hematocrit 35.3 % (37.0-47.0); Hemoglobin 10.9 g/dL (12.2-16.2); Immature Granulocytes % 0.2 %; Mean Corpuscular HGB Conc 30.9 g/dL (31.8-35.4); Mean Corpuscular Hemoglobin 25.0 pg (27.0-31.2); Mean Corpuscular Volume 81.0 fl (81-99); Nucleated Red Blood Cells % 0 %; Platelet Count 326 K/mm3 (142-424); Red Blood Count 4.36 M/mm3 (4.20-5.40); Red Cell Distribution Width-SD 40.9 fL; White Blood Count 8.7 K/mm3 (4.8-10.8)
[2024-11-16 13:55] LABS: 25-OH Vitamin D, Total 75.7 ng/mL (30-100)
[2024-11-16 13:58] LABS: Free T4 (Free Thyroxine) 1.27 ng/dl (0.78-2.19)
[2024-11-16 14:09] LABS: Thyroid Stimulating Hormone 1.69 uIU/mL (0.465-4.68)
[2024-11-16 14:28] LABS: Vitamin B12 840 pg/mL (239-931)
[2024-11-16 14:41] LABS: Alanine Aminotransferase 24 U/L (12-78); Albumin Level 3.9 g/dl (3.5-5.0); Albumin/Globulin Ratio 1.4 (1.1-1.8); Alkaline Phosphatase 132 U/L (38-126); Anion Gap 12.4 mEq/L (5-15); Aspartate Amino Transferase 26 U/L (14-36); Bilirubin,Total 0.5 mg/dl (0.2-1.3); Blood Urea Nitrogen 8 mg/dl (7-17); Calcium 9.0 mg/dl (8.4-10.2); Carbon Dioxide 27 mmol/L (22.0-30.0); Chloride 104 mmol/L (98-107); Cholesterol 176 mg/dl (140-200); Creatinine,Serum 0.90 mg/dl (0.52-1.04); Estimated Glomerular Filt Rate 72 ml/min (>60); GFR (African American) 87 ML/MIN (>60); Globulin 2.7 g/dL (1.3-3.2); Glucose 97 mg/dl (74-100); HDL Cholesterol 49 mg/dl (40-60); Potassium 4.4 mmoL/L (3.5-5.1); Sodium 139 mmol/L (136-145); Total Protein,Serum 6.6 g/dl (6.3-8.2); Triglycerides 95 mg/dl (30-150)
[2024-11-16 14:44] LABS: Folate 5.00 ng/mL
[2024-11-16 18:51] LABS: Iron 51 ug/dL (37-170)
[2024-11-16 19:02] LABS: Total Iron Binding Capacity 384 ug/dL (265-497)
[2024-11-16 19:35] LABS: Ferritin 6.60 ng/ml (6.24-137)
[2024-11-16 19:43] LABS: Hemoglobin A1C 5.6 % (4.0-6.0)
[2024-11-20 08:16] LABS: Triiodothyronine (T3) Free 3.2 pg/mL (2.0-4.4)
== END 2024-11-16 23:59 | disposition home or self-care (01) ==
LOC: LAB 12:15
PROVIDERS: PCP Family Medicine Addiction Medicine; Visit Provider Family Medicine Addiction Medicine
DX: Z01.89 Encounter for other specified special examinations (principal)
CPT/HCPCS: 36415; 80053; 80061; 80074; 82306; 82607; 82728; 82746; 83036; 83540; 83550; 84439; 84443; 84481; 85025; 87389

== ENCOUNTER 2025-01-14 13:45 | Outpatient (CLI) | payer OTHER, BC, SELFPAY ==
--- NOTE | 2025-01-14 13:47 | XR_ITS ---
PROCEDURE INFORMATION: Exam: XR Chest Exam date and time: 01/14/2025 1:48 PM Age: 35 years old Clinical indication: Abnormal findings; Positive tb skin testing; Additional info: Positive tb skin test TECHNIQUE: Imaging protocol: Radiologic exam of the chest. Views: 2 views. COMPARISON: CT ANGIO CHEST PE PROTOCOL 12/19/2023 4:38 PM FINDINGS: Lungs: Clear lungs. Pleural spaces: No pneumothorax. No sizable pleural effusion. Heart/Mediastinum: No cardiomegaly. Bones/joints: Unremarkable. IMPRESSION: Clear lungs.
== END 2025-01-14 23:59 ==
LOC: RAD 13:46
PROVIDERS: PCP Student in an Organized Health Care Education/Training Program; Visit Provider Student in an Organized Health Care Education/Training Program
DX: R76.11 Nonspecific reaction to tuberculin skin test without active tuberculosis (principal)
CPT/HCPCS: 71046

== ENCOUNTER 2025-01-23 13:10 | Outpatient (CLI) | payer OTHER, BC, SELFPAY ==
--- NOTE | 2025-01-23 13:30 | US_ITS ---
PROCEDURE INFORMATION: Exam: US Right Breast, Complete Exam date and time: 01/23/2025 1:24 PM Age: 35 years old Clinical indication: 6 month follow up on echogenic focus TECHNIQUE: Imaging protocol: Complete ultrasound of all four quadrants of the right breast and the retroareolar regions, including ultrasound of the axilla when performed. COMPARISON: US BREAST RT COMPLETE 07/18/2024 10:11 AM FINDINGS: ULTRASOUND: Breast ultrasound findings: Sonographic images of the right breast including the retroareolar region, all 4 quadrants and the axilla demonstrates a superficial 0.4 cm benign oil cyst labeled 12 o'clock axis 6 cm from the nipple. Cursors were placed over what appears to be normal subcutaneous fat in the right 11 o'clock axis 5 cm from the nipple and 12 o'clock axis 7 cm from the nipple. No architectural distortion or acoustical shadowing. No skin thickening or axillary adenopathy. IMPRESSION: No sonographic evidence of malignancy. Annual bilateral mammographic screening is recommended to commence at the age of 40 unless otherwise clinically indicated. ASSESSMENT: BI-RADS Category 2: Benign.
--- OUTSIDE RECORDS SUMMARY | 2025-01-23 14:12 | XMS_ITS | Clinical Summary ---
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 Phone Unavailable Primary Care Provider [...] 01/07/2012 [facility]-Cervical Cancer Screening 2021 [facility]-HPV/Cotest 2021 [id number] Vaccine ( - 2024- season) 2024 [facility]-Influenza Vaccine (#1) 2024 11/04/2008, [facility]-DTaP,Tdap,and Td Vaccines (7 - Td or Tdap) 06/10/2031 06/09/2021, 02/28/1995, 07/03/1992, Additional history exists [facility]-Zoster Vaccines (1 of 2) 2041 [facility]-HIB Vaccines Completed 04/28/1992, , 1991, Additional history exists [facility]-IPV Vaccines Completed 02/28/1995, , 1991, Additional history exists [facility]-Hepatitis B Vaccines Completed 001, 07/01/2000, 05/19/2000 HPV Vaccines (No Doses Required) Completed [facility]-Hepatitis A Vaccines Aged Out No longer [...]
--- OUTSIDE RECORDS SUMMARY | 2025-01-23 14:12 | XMS_ITS | Clinical Summary ---
Author Organization 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 Phone Unavailable Primary Care Provider [...] 11 COLONOSCOPY CHOLECYSTECTOMY 08/08/2015 - 09/07/2015 @ [facility] Medical History Medical History Date Comments [...] HPV/Pap Cotest 2021 COVID-19 Vaccine ( season) 2024 Influenza Vaccine (#1) 2024 7 (Declined), 11/04/2008, [...] Procedure Name Priority Date/Time Associated Diagnosis Comments PHYSICAL SECURITY SPECIALIST CYTOLOGY REPORT Routine 06/20/2009 5 :10 AM EDT from Last 3 Months or Most Recently Relevant to Health Maintenance Results * PHYSICAL SECURITY SPECIALIST CYTOLOGY REPORT (06/20/2009 5:10 AM EDT) Etl Consultant Cytology Report PATIENT NAME:DEE DEE MARIA V Etl Consultant Cytology Report Accession Number Collected Date/Time Received Date/Time [id number] 06/20/09 05:10 EDT 06/23/09 05:10 EDT GY [...] before definitive therapy. Processed using the ThinPrep Senior Technical Support Analyst automated cytology screening device ([employer]). Lead Ios Developer: ROBIN 07/08/2009 Completed by: MILAGRO Salazar (Electronically signed by) 07/08/2009 [facility] 06/20/2009 5:10 AM EDT L Jose Mckinley MD PATHOLOGY ORDERABLES Final Result [facility] [address] [place] [id number] from Last 3 Months or Most Recently Relevant to Health Maintenance Insurance ANTHEM PPO ANTHEM PPO
== END 2025-01-23 23:59 | disposition home or self-care (01) ==
LOC: RAD 13:10
PROVIDERS: PCP Student in an Organized Health Care Education/Training Program; Visit Provider Obstetrics & Gynecology
DX: N60.01 Solitary cyst of right breast (principal)
CPT/HCPCS: 76641

== ENCOUNTER 2025-02-01 10:54 | Outpatient (CLI) | payer OTHER, BC, SELFPAY ==
--- OUTSIDE RECORDS SUMMARY | 2025-02-01 10:57 | XMS_ITS | Clinical Summary ---
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
--- OUTSIDE RECORDS SUMMARY | 2025-02-01 10:57 | XMS_ITS | Clinical Summary ---
Author Organization 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 Phone Unavailable Primary Care Provider [...] 11 COLONOSCOPY CHOLECYSTECTOMY 08/08/2015 - 09/07/2015 @ [facility] Medical History Medical History Date Comments AR [...] Procedure Name Priority Date/Time Associated Diagnosis Comments PHYSICS TEACHER CYTOLOGY REPORT Routine 06/20/2009 5 :10 AM EDT from Last 3 Months or Most Recently Relevant to Health Maintenance Results * PHYSICS TEACHER CYTOLOGY REPORT (06/20/2009 5:10 AM EDT) Director Report Cytology Report PATIENT NAME:DEE DEE MARIA V Director Report Cytology Report Accession Number Collected Date/Time Received Date/Time [id number] 06/20/09 05:10 EDT 06/23/09 05:10 EDT GY [...] before definitive therapy. Processed using the ThinPrep Manager Acute automated cytology screening device ([employer]). Electronics Teacher: ROBIN 07/08/2009 Completed by: MILAGRO Salazar (Electronically signed by) 07/08/2009 [facility] Laboratory [facility] 06/20/2009 5:10 AM EDT L Jose Mckinley MD PATHOLOGY ORDERABLES Final Result [facility] [address] [place] [address] from Last 3 Months or Most Recently Relevant to Health Maintenance Insurance ANTHEM PPO ANTHEM PPO
--- NOTE | 2025-02-01 10:58 | XR_ITS ---
FINAL REPORT CLINICAL HISTORY: chest congestion COMPARISON: None FINDINGS: CHEST 2 VIEWS: No acute pulmonary density is evident. There is no evidence of effusion or other pleural disease. The mediastinum has a normal appearance. The cardiac silhouette is unremarkable. IMPRESSION: Unremarkable chest exam. Reviewed, Interpreted and Dictated by Wallace Tee MD Transcribed by Velvet Douglas Authenticated and [facility]
== END 2025-02-01 23:59 | disposition home or self-care (01) ==
LOC: LAB 10:55
PROVIDERS: PCP Student in an Organized Health Care Education/Training Program; Visit Provider Nurse Practitioner
DX: J02.9 Acute pharyngitis, unspecified (principal); R09.89 Other specified symptoms and signs involving the circulatory and respiratory systems
CPT/HCPCS: 71046; 87070